=== PATIENT | female | born 1960 | race Caucasian/White ===

== ENCOUNTER 2021-01-22 13:38 | Emergency (ER) | payer OTHER, SELFPAY ==
[2021-01-22 13:55] VITALS: BP 156/84; PULSE 73; RESP 20; TEMP 37.1; O2SAT 100
--- NOTE | 2021-01-22 14:02 | ED.FEMALEGU ---
HPI - Female Genitourinary General Chief complaint: Urogenital-Female Stated complaint: Female Urogenital Time Seen by Provider: 01/22/21 14:11 Source: patient and RN notes reviewed Mode of arrival: ambulatory Limitations: no limitations History of Present Illness HPI Narrative: 60-year-old female with history of urinary tract infection presents with concern for dysuria, bladder pressure, nausea, flank pain. Reports she last had an infection in December and took Macrobid for which she has a standing prescription from her urologist. Reports she just got this prescription over the summer after a bladder scope. Reports that Macrobid made her sick. She reports, however, her symptoms did resolve with the infection in December. She denies fever, body aches, genital rash or lesions. MD elicited complaint: UTI Related Data Allergies Allergy/AdvReac Type Severity Reaction Status Date / Time nitrofurantoin AdvReac Intermediate Nausea and Verified 01/22/21 14:12 [From Macrobid] Vomiting Review of Systems Review of Systems: CONSTITUTIONAL: Denies malaise, chills, sweats, or fever. GASTROINTESTINAL: Denies abdominal pain, vomiting, diarrhea. Reports nausea GENITOURINARY: Reports dysuria, suprapubic pressure, urine frequency, flank pain. Denies urgency or hematuria. SKIN: Denies rash or itching. MUSCULOSKELETAL: Denies back pain, joint pain, or myalgia. NEUROLOGIC: Denies numbness, weakness, or headache. All systems reviewed & are unremarkable except as noted in HPI and below PMFSH Comments At time of signature, agree with nursing past medical, surgical, social and family history. There is no relevant family history pertinent to the presenting complaint Exam Narrative: GENERAL: Well-appearing, well-nourished, and in no acute distress. HEAD: Normocephalic. EYES: PERRLA, conjunctivae clear. NECK: Supple. No lymphadenopathy CHEST: Clear to auscultation. No respiratory distress. HEART: Regular rate and rhythm. ABDOMEN: Soft, nontender upon palpation, nondistended, normal active bowel sounds, no palpable or pulsatile masses, no guarding. No CVA tenderness SKIN: Warm, dry, no rash. NEURO: Alert and oriented x3. PSYCH: Normal mood and affect Course Course Emergency Course: Patient is aware of diagnosis, understands and agrees to treatment plan. Anticipatory guidance given. Patient agrees to follow-up as directed and is aware of reasons to seek care at the emergency department. Portions of this record may have been created with voice recognition software Vital Signs Vital signs: Vital Signs Temperature 98.8 F 01/22/21 13:55 Pulse Rate 73 01/22/21 13:55 Respiratory Rate 20 01/22/21 13:55 Blood Pressure 156/84 H 01/22/21 13:55 Pulse Oximetry 100 01/22/21 13:55 Temperature 98.8 F 01/22/21 13:55 Pulse Rate 73 01/22/21 13:55 Respiratory Rate 20 01/22/21 13:55 Blood Pressure 156/84 H 01/22/21 13:55 Pulse Oximetry 100 01/22/21 13:55 Reviewed. MDM - Female Genitourinary MDM Narrative Medical decision making narrative: Exam findings and UA show no acute concerns or changes; patient is non-toxic appearing and is in no distress. Patient is appropriate for outpatient treatment and follow-up. Critical Care Time Critical Care Time Critical Care Time: No Discharge Plan Discharge Clinical Impression: Symptoms of urinary tract infection Patient Disposition: Home, Self-Care Condition: Stable Instructions: Antibiotic Form, Urinary Tract Infection in Women (ED) Additional Instructions: We will send a urine culture to the lab; if the culture identifies an organism that the prescribed antibiotic will not treat, you will receive a phone call from an urgent care staff member and an appropriate antibiotic will be prescribed. You can call on Saturday or Saturday to find out if the urine culture grew bacteria. If it does not grow bacteria you can follow-up with your urologist about further evaluat
== END 2021-01-22 14:25 | disposition home or self-care (01) ==
PROVIDERS: Emergency Provider Nurse Practitioner; PCP Emergency Medicine
DX: R30.0 Dysuria (principal); R10.9 Unspecified abdominal pain; R11.0 Nausea; M35.00 Sjogren syndrome, unspecified
CPT/HCPCS: 81003; 87086; 99203; G0463

== ENCOUNTER 2021-07-17 10:19 | Emergency (ER) | payer OTHER, SELFPAY ==
[2021-07-17 10:33] VITALS: BP 146/78; PULSE 66; RESP 18; TEMP 36.9; O2SAT 98
--- NOTE | 2021-07-17 10:47 | ED.URI ---
HPI - URI/Sore Throat General Chief Complaint: Upper Respiratory Infection Stated Complaint: Congestion,Shortness of Breath Time Seen by Provider: 07/17/21 10:37 Source: patient and RN notes reviewed Mode of arrival: ambulatory Limitations: no limitations History of Present Illness HPI Narrative: 60-year-old female presented for complaint of headache, sinus pressure and congestion, sore throat, ear pressure and occasional nausea for 1 week. Endorses chills, and shortness of breath related to postnasal drainage and gurgling sensation in chest. She states cough is productive and endorses large amount of nasal congestion and mucus. She had a negative home COVID test yesterday. Endorses sick contacts all negative for COVID. She is been taking Tylenol and ibuprofen for symptoms. Hx afib, IBS, cdiff. MD elicited complaint: cough Related Data Home Medications Medication Instructions Recorded Confirmed cyclosporine [Restasis] 2 drp EACH EYE DAILY 07/17/21 07/17/21 flecainide 100 mg PO DAILY 07/17/21 07/17/21 hydroxychloroquine 200 mg PO DAILY 07/17/21 07/17/21 metoprolol succinate 25 mg PO DAILY 07/17/21 07/17/21 Allergies Allergy/AdvReac Type Severity Reaction Status Date / Time nitrofurantoin AdvReac Intermediate Nausea and Verified 07/17/21 10:26 [From Macrobid] Vomiting Review of Systems Review of Systems: CONSTITUTIONAL: denies malaise, fever EYES: Denies visual changes, redness, or discharge ENT: Reports rhinorrhea, congestion, sinus pain, otalgia, sore throat CARDIOVASCULAR: Denies chest pain, palpitations, edema RESPIRATORY: Reports cough, post nasal drainage GASTROINTESTINAL: Denies abdominal pain,vomiting SKIN: Denies rash or itching MUSCULOSKELETAL: Denies myalgia NEUROLOGIC: Endorses headache Exam Narrative: GENERAL: Ill-appearing, nontoxic HEAD: Normocephalic EYES:conjunctivae clear ENT: Mucous membranes moist. TM pearly frias with dull light reflex bilaterally; no tragal tenderness. Oropharynx erythematous without lesions or exudate, no drooling, no hoarseness, no trismus, uvula midline. No tripod positioning, muffled voice, soft palate or pharyngeal wall bulging NECK: Supple. No lymphadenopathy CHEST: Clear to auscultation, breath sounds equal. No wheezing, rhonchi, rales, or stridor. No respiratory distress, speaks in full sentences. HEART: Regular rate and rhythm. No murmur heard. SKIN: Warm, dry, no rash. NEURO: Alert and oriented x3. PSYCH: Normal mood and affect Course Course Emergency Course: Patient is aware of diagnosis, understands and agrees to treatment plan. Anticipatory guidance given. Patient agrees to follow-up as directed and is aware of reasons to seek care at the emergency department. Portions of this record may have been created with voice recognition software Level of Care: Express Care Visit Vital Signs Vital signs: Vital Signs Temperature 98.4 F 07/17/21 10:33 Pulse Rate 66 07/17/21 10:33 Respiratory Rate 18 07/17/21 10:33 Blood Pressure 146/78 H 07/17/21 10:33 Pulse Oximetry 98 07/17/21 10:33 Temperature 98.4 F 07/17/21 10:33 Pulse Rate 66 07/17/21 10:33 Respiratory Rate 18 07/17/21 10:33 Blood Pressure 146/78 H 07/17/21 10:33 Pulse Oximetry 98 07/17/21 10:33 reviewed MDM - URI/Sore Throat MDM Narrative Medical decision making narrative: strep and covid negative. She is appropriate for outpt treatment. She is advised on supportive treatments and to monitor symptoms for about 5 days, if symptoms persist or she is feeling more she can start the antibiotic. Given her history of C. difficile, she is aware to use caution. She is advised to use probiotics. Differential Diagnosis Differential diagnosis: Likely upper respiratory infection, otitis media, sinusitis, viral infection, influenza and pharyngitis Lab Data Attestation: I reviewed the patient's lab results. Discharge Plan Discharge Clinical Impression: Upper respiratory infect
== END 2021-07-17 10:58 | disposition home or self-care (01) ==
PROVIDERS: Emergency Provider Nurse Practitioner Family
DX: J06.9 Acute upper respiratory infection, unspecified (principal)
CPT/HCPCS: 87081; 87804; 87880; 99213; G0463

== ENCOUNTER 2021-12-01 12:36 | Outpatient (CLI) | payer OTHER, SELFPAY ==
--- NOTE | 2021-12-01 | ECHO_ITS ---
Patient Info Name: Krystle Retana Age: 61 years : 1960 Gender: Female Ht: 66 in Wt: 158 lbs BSA: 1.84 m2 HR: 61 bpm BP: 167 / 95 mmHg Technical Quality: Good Exam Date: 12/01/2021 1:51 PM Exam Location: [facility] Patient Status: Outpatient Admit Date: 12/01/2021 Staff Ordering Physician: Lamonte, Heriberto Tejada MD Hat Blocker: Janie Donahue RDCS Attending Provider: Manjula, Heriberto Tejdaa MD Referring Physician: Lamonte TORRES; Exam Type: CA echo doppler color flow Study Info Indications M35.00 - SJOGRENS SYNDROME Complete two-dimensional, color flow and Doppler transthoracic echocardiogram is performed. Summary 1. Complete two-dimensional, color flow and Doppler transthoracic echocardiogram is performed. 2. Left ventricular chamber dimension is normal. 3. Left ventricular systolic function is normal, estimated at 65-70%. 4. The left ventricular diastolic function is normal. 5. E/e' 9 is minimally elevated. 6. Global longitudinal strain is normal at -21.4%. 7. There is trace aortic valve regurgitation. 8. There is mild mitral valve regurgitation. 9. There is trace tricuspid valve regurgitation. 10. No pulmonary hypertension, estimated pulmonary arterial systolic pressure is 31 mmHg. Left Ventricle E/e' 9 is minimally elevated. Global longitudinal strain is normal at -21.4%. Left ventricular chamber dimension is normal. Left ventricular systolic function is normal, estimated at 65-70%. The left ventricular diastolic function is normal. Right Ventricle Right ventricular systolic function is normal and with normal TAPSE 2.8 cm. Right ventricular chamber dimension is normal. Left Atria Left atrial chamber dimension is normal. Right Atria Right atrial chamber dimension is normal. Aortic Valve The aortic valve is trileaflet. There is no aortic valve stenosis. There is trace aortic valve regurgitation. Pulmonic Valve There is no pulmonic regurgitation. Mitral Valve There is no mitral valve stenosis. There is mild mitral valve regurgitation. Tricuspid Valve There is trace tricuspid valve regurgitation. No pulmonary hypertension, estimated pulmonary arterial systolic pressure is 31 mmHg. Pericardium/Pleural There is no pericardial effusion. Inferior Vena Cava Normal inferior vena cava with >50% collapse upon inspiration consistent with normal right atrial pressure, 5 mmHg. Aorta The aortic root size at the sinus of Valsalva is normal. Left Ventricular Outflow Tract Name Value Normal LVOT 2D LVOT Diameter 2.0 cm LVOT Doppler LVOT Peak Gradient 4 mmHg LVOT Mean Gradient 2 mmHg LVOT VTI 24 cm LVOT VTI/AV VTI Ratio 0.9 LVOT Stroke Volume 73 ml LVOT CO 4.0 l/min LVOT CI 2.2 l/min/m2 Pulmonic Valve Name Value Normal
--- NOTE | 2021-12-01 14:58 | WPDPFTINT ---
PFT Procedure Performed PFT Procedure Performed Plethysmography (Lung Vol) Diffusing Cap (DLCO) Flow Vol Loop Spirometry w/o Bronchodil PFT Interpretation This is a pulmonary function test with spirometry, plethysmography and diffusing capacity. The test was performed and results interpreted in accordance with the 2019 and 2005 ATS/ERS Task Force guidelines respectively using the Global Lung Function Initiative-2012 reference equations. Patient demonstrated good effort and cooperation. Reproducibility criteria were met. The quality of the spirometry maneuver was Grade A. Findings: Spirometry: The contour the inspiratory and expiratory flow tracing are normal. The FVC is 3.49 L, 103% predicted. The FEV1 is 2.62 L, 99% predicted. The FEV1: FVC ratio 75%. Plethysmography: The total lung capacity is 5.65 L, 105% predicted. The functional residual capacity is 3.24 L, 106% predicted. The residual volume is 1.72 L, 81% predicted. Diffusing capacity: The diffusing capacity unadjusted for hemoglobin in carboxyhemoglobin is 16.1, 72% predicted. The diffusing capacity adjusted for alveolar volume is 3.34, 77% predicted. Impression: The spirometry is normal without evidence of an obstructive abnormality. The lung volumes are normal. The diffusing capacity is normal. There are no prior studies for comparison
== END 2021-12-01 12:37 | disposition home or self-care (01) ==
PROVIDERS: PCP Family Medicine; Visit Provider Internal Medicine Rheumatology
DX: M35.00 Sjogren syndrome, unspecified (principal); M35.9 Systemic involvement of connective tissue, unspecified; I08.3 Combined rheumatic disorders of mitral, aortic and tricuspid valves
CPT/HCPCS: 93306; 94375; 94726; 94729

== ENCOUNTER → 2022-03-14 11:34 | Outpatient (CLI) | payer OTHER, SELFPAY ==
--- NOTE | ~2022-03-14 | XR_ITS ---
EXAMINATION: XR hip LT min 2V INDICATION: Left hip pain TECHNIQUE: Two views of the left hip are obtained. COMPARISON: None available FINDINGS: Bone alignment is normal. There is no fracture. There is mild osteoarthritis of the hip. Ph leboliths are noted in the pelvis. IMPRESSION: 1. Mild osteoarthritis. Reviewed, dictated and finalized at location B. CER IMPRESSION: 1. Mild osteoarthritis.
== END ==
PROVIDERS: PCP Family Medicine; Visit Provider Family Medicine
DX: M16.12 Unilateral primary osteoarthritis, left hip (principal)
CPT/HCPCS: 73502

== ENCOUNTER → 2022-04-20 10:27 | Outpatient (CLI) | payer OTHER, SELFPAY ==
--- NOTE | ~2022-04-20 | XR_ITS ---
XR shoulder RT min 2V 04/20/2022 10:46 Indication: Right shoulder pain Procedure: 4 views right shoulder Comparison: No prior studies for comparison. Findings: There is subtle calcific tendinopathy. Osteopenia. There is anatomic alignment. No acute fr acture or traumatic malalignment. No soft tissue abnormality. No foreign body. Impression: 1: No significant bone or joint abnormality. Reviewed, dictated and finalized at location A. CH LECTURER Impression: 1: No significant bone or joint abnormality.
== END ==
PROVIDERS: PCP Family Medicine; Visit Provider Physician Assistant
DX: M25.511 Pain in right shoulder (principal)
CPT/HCPCS: 73030

== ENCOUNTER 2022-08-21 16:35 | Outpatient (CLI) | payer OTHER, SELFPAY ==
--- NOTE | ~2022-08-21 | DEXA_ITS ---
Bone Density Report Name: DULCE TOM Age: 62 Sex: Female Ethnicity: White Date of : 1960 Indication: postmenopausal; screening for osteoporosis; height loss; Referring Provider: LIZ DE LOS SANTOS Study: Bone densitometry was performed. Exam Date: August 21, 2022 Accession number: [id number] Bone Density: Region BMD T-score Z-score Classification AP Spine(L1-L4) 0.783 -2.4 -0.8 Osteopenia Femoral Neck (Left) 0.688 -1.4 -0.1 Osteopenia Total Hip (Left) 0.808 -1.1 0.0 Osteopenia Femoral Neck (Right) 0.658 -1.7 -0.4 Osteopenia Total Hip (Right) 0.747 -1.6 -0.5 Osteopenia Total Hip Mean 0.778 -1.4 -0.3 Osteopenia World Health Organization criteria for BMD impression classify patients as: Normal (T-score at or above -1.0), Osteopenia (T-score between -1.0 and -2.5), or Osteoporosis (T-score at or below -2.5). 10-year Fracture Risk(1): Major Osteoporotic Fracture 9.1% Hip Fracture 1.0% Reported Risk Factors: [place] (), Neck BMD=0.658, BMI=27.6 (1) FRAX(R) Version 3.08. Fracture probability calculated for an untreated patient. Fracture probability may be lower if the patient has received treatment. Clinical Information Provided by Patient: Patient maximum height was 67 Menopause Age: 50 Drinks caffeinated beverages Onset of menses at age 13 Number of children 6 Impression: The patient has low bone mass, based on the Total Spine T-score. The patient has an estimated ten-year risk of hip fracture of 1% and an estimated ten-year risk of major fracture of 9.1%, based on the WHO FRAX algorithm. Discussion: BONE DENSITY IS LOW AT ONE OR MORE SKELETAL SITES. This patient's lowest T-score is low at one or more skeletal sites. It meets the World Health Organization's (WHO) criteria for ?low bone mass? (T-score between -1.0 and -2.5). The patient's 10-year risk of fracture as calculated by FRAX is less than the threshold where pharmacological therapy is recommended by the National Osteoporosis Foundation (NOF). However, all treatment decisions require clinical judgment and consideration of individual patient factors, including patient preferences, comorbidities, previous drug use, risk factors not captured in the FRAX model (e.g., frailty, falls, vitamin D deficiency, increased bone turnover, interval significant decline in bone density) and possible under or overestimation of fracture risk by FRAX. The patient should follow a healthful lifestyle (good nutrition with adequate calcium and vitamin D, and appropriate weight-bearing exercise). Follow-Up: Consider repeating this study in 2 to 3 years to reassess this patient's status, or sooner if there is some new clinical indication. Reported by: GIORGI on 08/21/2022 5:14:00 PM.
== END 2022-08-21 16:36 | disposition home or self-care (01) ==
LOC: ANHIMG 16:46
PROVIDERS: PCP Family Medicine; Visit Provider Physician Assistant
DX: N95.1 Menopausal and female climacteric states (principal); M85.89 Other specified disorders of bone density and structure, multiple sites
CPT/HCPCS: 77080

== ENCOUNTER 2022-11-12 13:55 | Outpatient (CLI) | payer OTHER, SELFPAY ==
--- NOTE | 2022-11-12 | ECG_ITS ---
Measurements Intervals [facility] [place] Rate: 55 P: 69 WA: 237 QRS: 36 QRSD: 109 T: 61 QT: 460 QTc: 442 Interpretive Statements SINUS BRADYCARDIA WITH FIRST DEGREE AV BLOCK ATRIAL PREMATURE COMPLEX DELAYED PRECORDIAL R/S TRANSITION BASELINE WANDER- I, II, AVR, AVL, AVF BORDERLINE ECG NO PREVIOUS ECG AVAILABLE FOR COMPARISON Electronically Signed On 11-12-2022 14:42:46 CDT by Jerry Wan D.O.
--- NOTE | ~2022-11-12 | XR_ITS ---
EXAMINATION: XR chest 2V 11/12/2022 15:12 INDICATION: Long-term anticoagulant use. PROCEDURE: 2 view chest COMPARISON: No prior studies for comparison. FINDINGS: The lungs are clear. The cardiomediastinal silhouette is within normal limits. There are no pleural effusions. There is no pneumothorax suspected. There are cholecystectomy clips. IMPRESSION: 1: NO ACUTE CARDIOPULMONARY DISEASE. Reviewed, dictated and finalized at location B.
[2022-11-12 14:41] LABS: Hematocrit 36.9 % (37.0-47.0); Hemoglobin 12.8 g/dL (12.0-15.0); Mean Corpuscular HGB Conc 34.7 g/dl (32-36); Mean Corpuscular Hemoglobin 33.1 pg (26-34); Mean Corpuscular Volume 95.3 fl (80-100); Mean Platelet Volume 9.7 fl (7.4-10.4); Platelet Count Result 254 k/mm3 (150-375); Red Blood Count 3.87 M/mm3 (4.2-5.4); Red Cell Distribution Width 11.7 % (11.5-14.5); White Blood Count 5.9 K/mm3 (4.5-10.0)
[2022-11-12 14:51] LABS: INR 1.1; Prothrombin Time 14.1 Seconds (11.1-14.7)
[2022-11-12 14:52] LABS: Alanine Aminotransferase 28 U/L (6-35); Albumin Level 4.6 g/dL (3.5-5.1); Alkaline Phosphatase 87 U/L (38-126); Anion Gap 10 mmol/L (8-16); Aspartate Amino Transferase 41 U/L (14-36); Bilirubin,Total 1.1 mg/dL (0.2-1.3); Blood Urea Nitrogen 10 mg/dL (7-17); Calcium 9.7 mg/dL (8.4-10.2); Carbon Dioxide 23 mmol/L (22-30); Chloride 98 mmol/L (98-107); Estimated Glomerular Filt Rate 56; Glucose 88 mg/dL (65-110); Partial Thromboplastin Time 31.5 SECONDS (22.3-36.8); Potassium 4.3 mmol/L (3.4-5.0); Sodium 131 mmol/L (137-145)
== END 2022-11-12 13:56 | disposition home or self-care (01) ==
PROVIDERS: PCP Family Medicine
DX: Z51.81 Encounter for therapeutic drug level monitoring (principal); Z79.01 Long term (current) use of anticoagulants; I44.0 Atrioventricular block, first degree
CPT/HCPCS: 36415; 71046; 80053; 85027; 85610; 85730; 93005

== ENCOUNTER 2022-11-25 09:17 | Observation (INO) | payer OTHER, SELFPAY ==
[2022-11-25] VITALS (27 sets, daily range): BP systolic 137–160; BP diastolic 68–111; PULSE 45–69; RESP 8–18; TEMP 36.6–36.9; O2SAT 89–100; BMI 25.4
--- NOTE | ~2022-11-25 | CT_ITS ---
EXAMINATION: CT abdomen pelvis w con DATE: 11/25/2022 10:17 INDICATION: Abdomen pain and diarrhea for 5 days TECHNIQUE: Computed tomography (CT) of the abdomen and pelvis was performed with 100 cc Omnipaque 350 intravenous contrast. The dose-length product was 466.69 mGy-cm. Automated exposure control and iter ative reconstruction technique were employed. COMPARISON: None. FINDINGS: Lung bases unremarkable. Heart size normal. There is a no significant vascular abnormality. No lymphadenopathy. Status post cholecystectomy. Fatty infiltration of the liver. The spleen, pancre as, adrenal glands and kidneys are unremarkable. There is mild thickening of the descending colon, si gmoid colon and rectum which may be due to underdistention or mild colitis. No evidence for perforati on. No free air or free fluid. Nonobstructive bowel pattern. Prominent parametrial vessels and left o varian vein, suspicious for pelvic congestion syndrome. IMPRESSION: 1. Mild thickening of the descending colon, sigmoid colon and rectum which may be due to underdistent ion or mild colitis. Reviewed, dictated and finalized at location A. IMPRESSION: 1. Mild thickening of the descending colon, sigmoid colon and rectum which may be due to underdistention or mild colitis.
[2022-11-25 09:41] LABS: Basophils Percent Auto 0.4 % (0.2-1.2); Immature Granulocyte Absolute 0.01 K/mm3 (0.00-0.031); Immature Granulocyte Percent A 0.4 % (0-0.5); Lymphocytes Absolute Auto 1.08 K/mm3 (0.9-3.2); Mean Corpuscular HGB Conc 35.9 g/dl (32-36); Mean Corpuscular Hemoglobin 32.9 pg (26-34); Mean Corpuscular Volume 91.8 fl (80-100); Mean Platelet Volume 9.3 fl (7.4-10.4); Monocytes Absolute Auto 0.3 K/mm3 (0.1-0.6); Monocytes Percent Auto 11.1 % (2.6-8.5); Neutrophils Absolute Auto 1.3 K/mm3 (1.3-6.7); Neutrophils Percent Auto 48.1 % (45.5-73.1); Platelet Count Result 197 k/mm3 (150-375); Red Blood Count 4.25 M/mm3 (4.2-5.4); Red Cell Distribution Width 11.2 % (11.5-14.5); White Blood Count 2.7 K/mm3 (4.5-10.0)
--- NOTE | 2022-11-25 09:48 | ED.GENADULT ---
HPI - General Adult General Chief complaint: Abdominal Pain <Stephie Hernandez July, ASSISTANT FIELD HOCKEY COACH - Last Filed: 11/25/22 17:41> Stated complaint: Abd pain <Stephie Hernandez July, - Last Filed: 11/25/22 17:41> Time Seen by Provider: 11/25/22 09:24 <Stephie Hernandez July, ASSISTANT FIELD HOCKEY COACH - Last Filed: 11/25/22 17:41> History of Present Illness HPI narrative: Krystle Retana is a 62 y/o female who presents with reports of not feeling well for the past 5 days. She states she has had explosive diarrhea for the past 5 days with generalized abdominal pain that has become much worse today. She states that she tested positive for Covid 5 days ago and had fevers 2 days ago. She reports she really has not urinated much over the past few days and has not eaten any food, she has tried to drink water even with feeling nauseated but it seems to hurt her stomach and she starts to have severe diarrhea that is green now. Denies any blood in her stool. She states that she was also supposed to get an ablation for her tachycardia last week but they delayed because she is Covid positive so she has been on Eliquis for about two weeks. <Stephie Hernandez July, - Last Filed: 11/25/22 17:41> Related Data Home medications: Home Medications Medication Instructions Recorded Confirmed cyclosporine 0.05 % eye drops in a 2 drp EACH EYE DAILY 07/17/21 11/25/22 dropperette (Restasis) flecainide 100 mg tablet 100 mg PO BID 07/17/21 11/25/22 hydroxychloroquine 200 mg tablet 200 mg PO DAILY 07/17/21 11/25/22 metoprolol succinate 25 mg 25 mg PO DAILY 07/17/21 11/25/22 tablet,extended release 24 hr apixaban 5 mg tablet (Eliquis) 5 mg PO BID 11/25/22 11/25/22 dicyclomine 10 mg capsule 20 mg PO BID PRN abdominal cramping 11/25/22 11/25/22 <Stephie Hernandez July, ASSISTANT FIELD HOCKEY COACH - Last Filed: 11/25/22 17:41> Allergies/adverse reactions: Allergies Allergy/AdvReac Type Severity Reaction Status Date / Time nitrofurantoin AdvReac Intermediate Nausea and Verified 11/25/22 09:18 [From Macrobid] Vomiting Sulfa (Sulfonamide AdvReac Diarrhea Verified 11/25/22 14:45 Antibiotics) <Stephie Fan - Last Filed: 11/25/22 17:41> Review of Systems Review of Systems: CONSTITUTIONAL: Denies fever, chills, or sweats. EYES: Denies visual changes, redness, or discharge. ENT: Denies rhinorrhea, congestion, sore throat, or otalgia. CARDIOVASCULAR: Denies chest pain, palpitations, or edema. RESPIRATORY: Denies cough or dyspnea. GASTROINTESTINAL: Reports severe mid/ generalized abdominal pain along with diarrhea for 5 days , no vomiting but feels nauseatd. GENITOURINARY: Denies dysuria or hematuria. SKIN: Denies rash or itching. MUSCULOSKELETAL: Denies back pain, joint pain, or myalgia. NEUROLOGIC: Denies headache, numbness, dizziness, or weakness. PSYCHIATRIC: Denies anxiety or depression. <Stephie Hernandez July, - Last Filed: 11/25/22 17:41> [facility] Past Medical History Medical History: Medical History (Updated 11/25/22 @ 17:41 by Stephie Hernandez July, ASSISTANT FIELD HOCKEY COACH) Hypertension Irritable bowel syndrome Osteopenia Paroxysmal atrial fibrillation Sjogren's disease Vitamin B12 deficiency <Stephie Hernandez July, - Last Filed: 11/25/22 17:41> Surgical History Surgical History: Surgical History (Updated 11/25/22 @ 14:16 by Sabrina Tay PA-C) History of arthroscopy of right knee x3 History of cardiac radiofrequency ablation (RFA) History of cholecystectomy History of endometrial ablation History of laser assisted in situ keratomileusis <Stephie Hernandez July, - Last Filed: 11/25/22 17:41> Family History Family History: Family History Father Melanoma Sibling Hypertension <Stephie Hernandez July, - Last Filed: 11/25/22 17:41> Social History Social History: Social History (Updated 11/25/22 @ 14:17 by Sabrina Tay PA-C) Social History: Surrogate medical decision maker: Code status: Full code. Smoking status: Ne
[2022-11-25 09:53] LABS: Alanine Aminotransferase 42 U/L (6-35); Albumin Level 4.6 g/dL (3.5-5.1); Alkaline Phosphatase 96 U/L (38-126); Anion Gap 10 mmol/L (8-16); Aspartate Amino Transferase 55 U/L (14-36); Bilirubin,Total 0.5 mg/dL (0.2-1.3); Blood Urea Nitrogen 10 mg/dL (7-17); Calcium 9.9 mg/dL (8.4-10.2); Carbon Dioxide 23 mmol/L (22-30); Chloride 96 mmol/L (98-107); Estimated Glomerular Filt Rate 50; Glucose 106 mg/dL (65-110); Lipase 176 U/L (23-300); Sodium 129 mmol/L (137-145)
[2022-11-25] MEDS: ONDANSETRON INJ 4 MG/2 ML VIAL IV PUSH (10:23)
[2022-11-25] MEDS: DICYCLOMINE HCL INJ 20 MG/2 ML VIAL IM (10:23)
[2022-11-25] MEDS: SODIUM CHLORIDE 0.9% IV 1,000 ML 999 ML IV CONT (10:23)
[2022-11-25] MEDS: FAMOTIDINE 20 MG/2 ML VIAL IV PUSH (10:23)
[2022-11-25 11:11] LABS: Influenza A QL RT-PCR Negative (Negative); Influenza B QL RT-PCR Negative (Negative); RSV RNA, RT-PCR Negative (Negative); SARS-CoV-2 RNA PCR Positive (Negative)
[2022-11-25 11:23] LABS: Appearance Urine Clear (Clear); Bilirubin Urine Negative (Negative); Blood Urine Negative (Negative); Color Urine Yellow (Yellow); Glucose Urine UA Negative (Negative); Ketones Urine Negative (Negative); Leukocyte Esterase Ur Negative LEU/UL (Negative); Nitrate Urine Negative (Negative); Protein Urine Negative (Negative); Specific Grav Ur 1.028 (1.001-1.035); Urobilinogen Urine 0.2 mg/dL (<2.0)
[2022-11-25 11:27] LABS: Add Urine Microscopic? NO
[2022-11-25 11:30] LABS: Lactic Acid Reflex 0.9 mmol/L (0.7-2.0)
--- NOTE | 2022-11-25 13:46 | PM.IMHP ---
H&P: HPI History of Present Illness Date/Time: 11/25/22 14:15 Chief Complaint: Abdominal pain, diarrhea. Narrative: This is a 62-year-old female with history of clostridium difficile diarrhea, irritable bowel syndrome, hypertension, paroxysmal atrial fibrillation status post ablation, and Sjogren's syndrome who presented to the emergency department via private vehicle for evaluation of abdominal pain and diarrhea. The patient provides the following history. Her son had cold symptoms a week ago and last Saturday she developed the same. She tested positive for COVID on Saturday and she has not had a great appetite since that time due to change in smell and taste. She has ongoing nausea but has not had any vomiting. The last few days she has developed diffuse abdominal discomfort and diarrhea. Initially she had watery yellowish-brown diarrhea but is now more green in appearance. She has not noticed any blood or mucus in the stool. Today she took a Bentyl for her ongoing abdominal pain and given her history of IBS, and she has not had any diarrhea since admission to the floor. Of note the patient was scheduled for a cardiac ablation for tachycardia last week however that was postponed due to her being COVID positive. She has not had any issues today with tachycardia or sensations of racing heart. She was afebrile on arrival to the emergency department. Blood pressures have been stable. Labs were significant for a WBC count of 2.7, sodium 129, chloride 96, creatinine 1.10, AST 55, ALT 42. Urinalysis was unremarkable. She was negative for influenza and RSV but did test positive for COVID. CT of the abdomen pelvis showed mild thickening of the descending colon, sigmoid colon, and rectum which may be due to under distention or mild colitis. She is being admitted in this setting for hydration and supportive care. Review of Systems Review of Systems: Twelve systems were reviewed. She has chronic dry mouth and dry eyes due to Sjogren's. She is on hydroxychloroquine daily for that. No chest pain or shortness of breath. She has not noticed any blood or mucus in the stool. Urine output has decreased a bit. No dysuria. Except as documented, all other systems were reviewed and are negative. [facility] Past Medical History Medical History Hypertension Irritable bowel syndrome Osteopenia Paroxysmal atrial fibrillation Sjogren's disease Vitamin B12 deficiency Surgical History Surgical History History of arthroscopy of right knee x3 History of cardiac radiofrequency ablation (RFA) History of cholecystectomy History of endometrial ablation History of laser assisted in situ keratomileusis Family History Family History Father Melanoma Sibling Hypertension Social History Social History (Updated 11/25/22 @ 21:54 by Sabrina Tay PA-C) Social History: Surrogate medical decision maker: Ramiro Retana, spouse. Code status: Full code. Smoking status: Never smoker Second hand tobacco smoke exposure: No Alcohol intake: never Substance use: never Substance use type: does not use Lack of Transportation: No Lack of Food: Never True Current Housing: I Have Housing Concerned About Future Housing: No Difficulty Paying Gas/Electric Bills: No Difficulty Paying for Meds: No Currently Unemployed: No Education: Decline to Answer Difficulty w/ Childcare or Family Care: No Living arrangements: with family Occupation/Education: unemployed Spiritual care concerns: No Meds Home Medications and Allergies Home Medications Medication Instructions Recorded Confirmed Type cyclosporine 0.05 % eye drops in a 2 drp EACH EYE DAILY 07/17/21 11/25/22 History dropperette (Restasis) flecainide 100 mg tablet 100 mg PO BID 07/17/21 11/25/22 History hydroxych
--- NOTE | 2022-11-25 14:42 | PC.NURSE ---
This patient, Krystle Retana, was admitted to Medical Room 341-01. Patient/family oriented to hospital policies and general routines including ID bracelet, bed and alarms, visiting hours, pain management, procedures, bathroom and other care routines, personal items, smoking policy, room service/diet, and visiting hours. Information on how to activate the Rapid Response Team has been discussed. Patient/Family are encouraged to report perceived risks to care and to ask questions if they do not understand what they are told or what they should do.
--- NOTE | 2022-11-25 16:16 | PC.NURSE ---
Technical Sales Support Specialist spoke with patient's Ramiro and gave him an update on patient via telephone.
[2022-11-25] MEDS: APIXABAN 5 MG TABLET PO (21:27)
[2022-11-25] MEDS: FLECAINIDE ACETATE 100 MG TABLET PO (21:27)
[2022-11-25 21:58] LABS: Anion Gap 10 mmol/L (8-16); Blood Urea Nitrogen 8 mg/dL (7-17); Carbon Dioxide 19 mmol/L (22-30); Chloride 101 mmol/L (98-107); Estimated CRCL calculation 46 ml/min; Estimated Glomerular Filt Rate 56; Glucose 118 mg/dL (65-110); Potassium 3.6 mmol/L (3.4-5.0); Sodium 130 mmol/L (137-145)
[2022-11-26] VITALS (7 sets, daily range): BP systolic 130–138; BP diastolic 86–93; PULSE 48–61; RESP 16–17; TEMP 36.8–36.9; O2SAT 100
[2022-11-26] MEDS: SODIUM CHLORIDE 0.9% IV 1,000 ML 100 ML IV CONT (00:12)
[2022-11-26 06:02] LABS: Hematocrit 36.8 % (37.0-47.0); Hemoglobin 12.5 g/dL (12.0-15.0); Mean Corpuscular Hemoglobin 32.6 pg (26-34); Mean Corpuscular Volume 95.8 fl (80-100); Platelet Count Result 172 k/mm3 (150-375); Red Blood Count 3.84 M/mm3 (4.2-5.4); Red Cell Distribution Width 11.6 % (11.5-14.5); White Blood Count 2.9 K/mm3 (4.5-10.0)
[2022-11-26 06:19] LABS: Alanine Aminotransferase 39 U/L (6-35); Albumin Level 3.8 g/dL (3.5-5.1); Alkaline Phosphatase 76 U/L (38-126); Anion Gap 8 mmol/L (8-16); Aspartate Amino Transferase 47 U/L (14-36); Bilirubin,Total 0.4 mg/dL (0.2-1.3); Blood Urea Nitrogen 7 mg/dL (7-17); Calcium 8.9 mg/dL (8.4-10.2); Carbon Dioxide 22 mmol/L (22-30); Chloride 103 mmol/L (98-107); Estimated CRCL calculation 51 ml/min; Estimated Glomerular Filt Rate > 60; Glucose 90 mg/dL (65-110); Potassium 4.7 mmol/L (3.4-5.0); Sodium 133 mmol/L (137-145)
[2022-11-26] MEDS: ACETAMINOPHEN 325 MG TABLET 650 MG PO (06:58)
[2022-11-26] MEDS: FLECAINIDE ACETATE 100 MG TABLET PO (09:47)
[2022-11-26] MEDS: cycloSPORINE 0.4 ML OPHTH SOLUTION 2 DROP EACH EYE (09:47)
[2022-11-26] MEDS: APIXABAN 5 MG TABLET PO (09:47)
[2022-11-26] MEDS: METOPROLOL SUCCINATE EXT REL 25 MG TABCR PO (09:48)
[2022-11-26] MEDS: lisinopriL 10 MG TABLET PO (09:48)
[2022-11-26] MEDS: HYDROXYCHLOROQUINE SULFATE 200 MG TABLET PO (09:48)
--- NOTE | 2022-11-26 12:02 | PM.DS ---
DS: Admitting Diagnosis Discharge Date 11/26 Admitting Diagnosis N/V/D DS: Discharge Diagnosis Discharge Diagnosis (1) COVID: Code(s): U07.1 - COVID-19 Status: Acute (2) Diarrhea: Code(s): R19.7 - Diarrhea, unspecified Status: Acute (3) Dehydration: Code(s): E86.0 - Dehydration Status: Acute (4) Hyponatremia: Code(s): E87.1 - Hypo-osmolality and hyponatremia Status: Acute (5) Paroxysmal atrial fibrillation: Code(s): I48.0 - Paroxysmal atrial fibrillation Status: Acute (6) Hypertension: Code(s): I10 - Essential (primary) hypertension Status: Acute Plan The patient presented to the emergency department for evaluation of abdominal pain and diarrhea as detailed in HPI. She also tested positive for COVID last Saturday, confirmed today. Labs, imaging, EKG, and all reports were personally reviewed. She is dehydrated from poor oral intake and diarrhea with an increasing creatinine from her baseline (1.1 today, baseline 1.0). Sodium is also low 129 however it looks like she is chronically low. She was given a L normal saline bolus in the emergency department and she will receive 1 more L overnight. She has not had any diarrhea since taking her Bentyl this morning. Diarrhea is likely related to COVID and her irritable bowel syndrome. Supportive care for the COVID, she has no oxygen requirement. CT scan shows findings of perhaps mild colitis though findings may be due to under distension. Her diarrhea seems to be slowing down, she is afebrile, and her abdominal exam is pretty benign. As such will hold on antibiotics at this time given her history of C diff. Blood pressures were reviewed and they have been stable. She is currently in a sinus bradycardia and has not had any issues of tachycardia today. Her home medications will be reviewed and resumed as appropriate. DS: Summary Hospital Course Hospital Course: This is a 62-year-old female with history of clostridium difficile diarrhea, irritable bowel syndrome, hypertension, paroxysmal atrial fibrillation status post ablation, and Sjogren's syndrome who presented to the emergency department via private vehicle for evaluation of abdominal pain and diarrhea. The patient provides the following history. Her son had cold symptoms a week ago and last Saturday she developed the same. She tested positive for COVID on Saturday and she has not had a great appetite since that time due to change in smell and taste. She has ongoing nausea but has not had any vomiting. The last few days she has developed diffuse abdominal discomfort and diarrhea. Initially she had watery yellowish-brown diarrhea but is now more green in appearance. She has not noticed any blood or mucus in the stool. Today she took a Bentyl for her ongoing abdominal pain and given her history of IBS, and she has not had any diarrhea since admission to the floor. Of note the patient was scheduled for a cardiac ablation for tachycardia last week however that was postponed due to her being COVID positive. She has not had any issues today with tachycardia or sensations of racing heart. She was afebrile on arrival to the emergency department. Blood pressures have been stable. Labs were significant for a WBC count of 2.7, sodium 129, chloride 96, creatinine 1.10, AST 55, ALT 42. Urinalysis was unremarkable. She was negative for influenza and RSV but did test positive for COVID. CT of the abdomen pelvis showed mild thickening of the descending colon, sigmoid colon, and rectum which may be due to under distention or mild colitis. She is being admitted in this setting for hydration and supportive care. Status at Discharge Cognitive/behavioral status at discharge: A&Ox4 Time Spent with Patient Time attestation: Total time spent providing and/or coordinating discharge services: 42 Exam Narrative: General: well appearing, well developed, well nourished, appears stated age. HEENT: normoc
== END 2022-11-26 15:20 | disposition home or self-care (01) ==
LOC: ANHED 10:51 → ANH3MED 13:44
PROVIDERS: Emergency Medicine; Physician Assistant; Admitting Provider Chiropractor; Emergency Provider Nurse Practitioner Family; PCP Family Medicine; Visit Provider Chiropractor
DX: U07.1 COVID-19 (principal); R19.7 Diarrhea, unspecified; E86.0 Dehydration; E87.1 Hypo-osmolality and hyponatremia; I10 Essential (primary) hypertension; I48.0 Paroxysmal atrial fibrillation; M35.00 Sjogren syndrome, unspecified
CPT/HCPCS: 36415; 74177; 80048; 80053; 81003; 83605; 83690; 83735; 83930; 84443; 85025; 85027; 87637; 96360; 96361; 96372; 96374; 96375; 99285; A9270; G0378; J0500; J2405; J7030; Q9967

== ENCOUNTER 2022-11-27 07:01 | Emergency (ER) | payer OTHER, SELFPAY ==
[2022-11-27] VITALS (12 sets, daily range): BP systolic 127–162; BP diastolic 68–94; PULSE 66; RESP 19; TEMP 37.4; O2SAT 98–100
--- NOTE | ~2022-11-27 | CT_ITS ---
EXAMINATION: CT abdomen pelvis w con DATE: 11/27/2022 08:25 INDICATION: Abdominal pain TECHNIQUE: Computed tomography (CT) of the abdomen and pelvis was performed with 100 mL Omnipaque-350 intravenous contrast. Automated exposure control and iterative reconstruction technique were employe d. The dose-length product was 382.30 mGy-cm. COMPARISON: 11/25/2022 FINDINGS: Mild dependent atelectasis in the right lower lobe. Heart size is normal. No pericardial or pleural e ffusion. Cholecystectomy clips the gallbladder fossa. Liver, spleen, pancreas, bilateral adrenal glan ds and kidneys are normal. Bowels including the appendix are normal. Prominent left gonadal vein and parametrial vessels which can be seen with pelvic vascular congestion syndrome. Uterus and bilateral adnexa are otherwise unremarkable. Nearly decompressed bladder is normal. No free intraperitoneal gas or fluid. No pathologically enlarged abdominal or pelvic lymphadenopathy. Lumbar levocurvature with moderate to severe spondylosis. IMPRESSION: 1. No acute intra-abdominal/pelvic process. Reviewed, dictated and finalized at location A.
[2022-11-27 07:45] LABS: Basophils Percent Auto 0.4 % (0.2-1.2); Hematocrit 35.7 % (37.0-47.0); Hemoglobin 12.7 g/dL (12.0-15.0); Immature Granulocyte Absolute 0.01 K/mm3 (0.00-0.031); Immature Granulocyte Percent A 0.4 % (0-0.5); Lymphocytes Absolute Auto 0.97 K/mm3 (0.9-3.2); Lymphocytes Percent Auto 37.3 % (18.3-44.2); Mean Corpuscular HGB Conc 35.6 g/dl (32-36); Mean Corpuscular Hemoglobin 32.5 pg (26-34); Mean Corpuscular Volume 91.3 fl (80-100); Mean Platelet Volume 9.9 fl (7.4-10.4); Monocytes Absolute Auto 0.2 K/mm3 (0.1-0.6); Monocytes Percent Auto 8.5 % (2.6-8.5); Neutrophils Absolute Auto 1.4 K/mm3 (1.3-6.7); Neutrophils Percent Auto 53.4 % (45.5-73.1); Platelet Count Result 187 k/mm3 (150-375); Red Blood Count 3.91 M/mm3 (4.2-5.4); Red Cell Distribution Width 11.4 % (11.5-14.5); White Blood Count 2.6 K/mm3 (4.5-10.0)
--- NOTE | 2022-11-27 07:55 | ED.ABDPAIN ---
HPI - Abdominal Pain General Chief Complaint: Abdominal Pain Stated Complaint: I'm having gut pain, N/V, dx with colitis, COVID Time Seen by Provider: 11/27/22 07:05 History of Present Illness HPI narrative: 60-year-old female presented the emergency department for evaluation of worsening nausea and abdominal pain. Patient did test positive for COVID last Saturday. Patient also developed colitis and was admitted into the hospital was discharged yesterday. Patient states that she had been on a clear liquid diet and this had helped her but they switched to regular food and she had symptoms. Overnight patient states she had worsening upper abdominal pain. Patient did take Bentyl and Zofran without improvement. Patient presents to ED complaining feeling dehydrated nauseous with increased pain. Patient denies any associated chest pain or shortness of breath patient is having diarrhea but denies any blood in her stool. Related Data Home Medications Medication Instructions Recorded Confirmed cyclosporine 0.05 % eye drops in a 2 drp EACH EYE DAILY 07/17/21 11/25/22 dropperette (Restasis) flecainide 100 mg tablet 100 mg PO BID 07/17/21 11/25/22 hydroxychloroquine 200 mg tablet 200 mg PO DAILY 07/17/21 11/25/22 metoprolol succinate 25 mg 25 mg PO DAILY 07/17/21 11/25/22 tablet,extended release 24 hr apixaban 5 mg tablet (Eliquis) 5 mg PO BID 11/25/22 11/25/22 Allergies Allergy/AdvReac Type Severity Reaction Status Date / Time nitrofurantoin AdvReac Intermediate Nausea and Verified 11/25/22 09:18 [From Macrobid] Vomiting Sulfa (Sulfonamide AdvReac Diarrhea Verified 11/25/22 14:45 Antibiotics) Review of Systems Review of Systems: All systems reviewed & are unremarkable except as noted in HPI and below PMFSH Past Medical History Medical History Hypertension Irritable bowel syndrome Osteopenia Paroxysmal atrial fibrillation Sjogren's disease Vitamin B12 deficiency Surgical History Surgical History History of arthroscopy of right knee x3 History of cardiac radiofrequency ablation (RFA) History of cholecystectomy History of endometrial ablation History of laser assisted in situ keratomileusis Family History Family History Father Melanoma Sibling Hypertension Social History Social History (Updated 11/25/22 @ 21:54 by Sabrina Tay PA-C) Social History: Surrogate medical decision maker: Ramiro Retana, spouse. Code status: Full code. Smoking status: Never smoker Second hand tobacco smoke exposure: No Alcohol intake: never Substance use: never Substance use type: does not use Lack of Transportation: No Lack of Food: Never True Current Housing: I Have Housing Concerned About Future Housing: No Difficulty Paying Gas/Electric Bills: No Difficulty Paying for Meds: No Currently Unemployed: No Education: Decline to Answer Difficulty w/ Childcare or Family Care: No Living arrangements: with family Occupation/Education: unemployed Spiritual care concerns: No Exam Narrative: APPEARANCE: Uncomfortable appearing HEAD: normocephalic, atraumatic. EYES: PERRLA/EOMI, conjunctivae clear. NOSE: Normal no drainage NECK: Supple. No adenopathy, no masses. RESPIRATORY: Airway patent, respirations nonlabored. Clear to auscultation bilaterally, no rales, rhonchi, wheezing. CARDIOVASCULAR: Regular rate and rhythm without murmurs rubs or gallops. ABDOMINAL: Soft, epigastric tenderness to palpation MUSCULOSKELETAL: Moves all extremities. Strength/ROM intact, No edema, No calf tenderness. NEURO: Alert. Cranial nerves II through XII intact. Grossly intact SKIN: Warm, dry. Normal Color Course Course Emergency Course: 62-year-old female presented the ED for evaluation of worsening pain after recen
[2022-11-27 07:57] LABS: Appearance Urine Clear (Clear); Bilirubin Urine Negative (Negative); Blood Urine Negative (Negative); Color Urine Yellow (Yellow); Glucose Urine UA Negative (Negative); Ketones Urine 1+ mg/dL (Negative); Leukocyte Esterase Ur Negative LEU/UL (Negative); Nitrate Urine Negative (Negative); Protein Urine Negative (Negative); Specific Grav Ur 1.011 (1.001-1.035); Urobilinogen Urine 0.2 mg/dL (<2.0); pH Urine 6.5 (5.0-9.0)
[2022-11-27 07:59] LABS: Add Urine Microscopic? NO
[2022-11-27 07:59] LABS: Alanine Aminotransferase 49 U/L (6-35); Albumin Level 4.4 g/dL (3.5-5.1); Alkaline Phosphatase 91 U/L (38-126); Anion Gap 12 mmol/L (8-16); Aspartate Amino Transferase 59 U/L (14-36); Bilirubin,Total 0.8 mg/dL (0.2-1.3); Blood Urea Nitrogen 9 mg/dL (7-17); Calcium 9.4 mg/dL (8.4-10.2); Carbon Dioxide 19 mmol/L (22-30); Chloride 101 mmol/L (98-107); Estimated CRCL calculation 53 ml/min; Estimated Glomerular Filt Rate > 60; Glucose 102 mg/dL (65-110); Lipase 204 U/L (23-300); Potassium 3.8 mmol/L (3.4-5.0); Sodium 132 mmol/L (137-145)
[2022-11-27] MEDS: METOCLOPRAMIDE HCL INJ 10 MG/2 ML VIAL IV PUSH (08:30)
[2022-11-27] MEDS: SODIUM CHLORIDE 0.9% IV 1,000 ML 999 ML IV CONT (08:30)
[2022-11-27] MEDS: BELLADONNA ALK/PHENOB ELIX 10 ML, MAG HYDROX/ALUMINUM HYD/SIMETH 30 ML, LIDOCAINE HCL 2... PO (08:31)
[2022-11-27] MEDS: PANTOPRAZOLE SODIUM IV 40 MG VIAL IV PUSH (09:58)
== END 2022-11-27 10:09 | disposition home or self-care (01) ==
PROVIDERS: Emergency Provider Emergency Medicine; PCP Family Medicine
DX: R10.10 Upper abdominal pain, unspecified (principal); U07.1 COVID-19; I10 Essential (primary) hypertension; I48.0 Paroxysmal atrial fibrillation; M35.00 Sjogren syndrome, unspecified; E53.8 Deficiency of other specified B group vitamins; K58.9 Irritable bowel syndrome, unspecified; Z79.01 Long term (current) use of anticoagulants
CPT/HCPCS: 36415; 74177; 80053; 81003; 83690; 85025; 96374; 96375; 99284; A9270; C9113; J2765; J7030; Q9967

== ENCOUNTER 2023-01-03 12:49 | Outpatient (CLI) | payer OTHER, SELFPAY ==
--- NOTE | 2023-01-03 | ECG_ITS ---
Measurements Intervals Pax Rate: 56 P: 65 WY: 228 QRS: 7 QRSD: 98 T: 48 QT: 445 QTc: 432 Interpretive Statements SINUS BRADYCARDIA WITH FIRST DEGREE AV BLOCK BASELINE ARTIFACT- I, II, III, AVR, AVF BORDERLINE ECG COMPARED TO ECG 11/12/2022 14:29:27 NO SIGNIFICANT CHANGES Electronically Signed On 01-03-2023 14:26:26 CDT by Jerry Wan D.O.
[2023-01-03 13:21] LABS: Hematocrit 37.3 % (37.0-47.0); Hemoglobin 12.3 g/dL (12.0-15.0); Mean Corpuscular Hemoglobin 32.1 pg (26-34); Mean Corpuscular Volume 97.4 fl (80-100); Mean Platelet Volume 9.6 fl (7.4-10.4); Platelet Count Result 275 k/mm3 (150-375); Red Blood Count 3.83 M/mm3 (4.2-5.4); Red Cell Distribution Width 12.3 % (11.5-14.5); White Blood Count 4.8 K/mm3 (4.5-10.0)
[2023-01-03 13:31] LABS: Alanine Aminotransferase 23 U/L (6-35); Albumin Level 4.8 g/dL (3.5-5.1); Alkaline Phosphatase 78 U/L (38-126); Anion Gap 9 mmol/L (8-16); Aspartate Amino Transferase 29 U/L (14-36); Blood Urea Nitrogen 14 mg/dL (7-17); Calcium 9.8 mg/dL (8.4-10.2); Carbon Dioxide 24 mmol/L (22-30); Chloride 98 mmol/L (98-107); Estimated Glomerular Filt Rate 50; Glucose 90 mg/dL (65-110); Potassium 4.6 mmol/L (3.4-5.0); Sodium 131 mmol/L (137-145)
[2023-01-03 13:37] LABS: INR 1.3; Partial Thromboplastin Time 37.1 SECONDS (22.3-36.8); Prothrombin Time 17.4 Seconds (11.1-14.7)
== END 2023-01-03 12:50 | disposition home or self-care (01) ==
PROVIDERS: PCP Family Medicine
DX: I48.91 Unspecified atrial fibrillation (principal); I10 Essential (primary) hypertension; Z79.01 Long term (current) use of anticoagulants; Z01.818 Encounter for other preprocedural examination; I44.0 Atrioventricular block, first degree
CPT/HCPCS: 36415; 80053; 85027; 85610; 85730; 93005

== ENCOUNTER 2023-01-16 16:24 | Outpatient (CLI) | payer OTHER, SELFPAY ==
--- NOTE | ~2023-01-16 | US_ITS ---
EXAMINATION: US arterial duplex LE RT DATE: 01/16/2023 18:14 INDICATION: PSEUDOANEURYSM . TECHNIQUE: Grayscale and Doppler ultrasound images of the were obtained. COMPARISON: None. FINDINGS: 2.6 cm AP by 5.5 cm transverse by 6.2 cm long, mixed echogenicity collection in the right g roin anterior to the femoral vessels, with turbulent internal flow and the Yin Arango sign. Feeding tra ct appears to be at the deep margin roughly at the mid point of the pseudoaneurysm (shown in the firs t cine clip). There is a second, 4 mm tract proximally between the pseudoaneurysm and the right commo n femoral vein exhibiting too and fro flow. 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 These findings were discussed with Dr. Tanner Felipe at 5:57 PM on 01/16/2023. The patient will be se nt to the [place] ED, with consideration for vascular surgery or interventional consultation. Reviewed, dictated and finalized at location K. 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 These findings were discussed with Dr. Tanner Felipe at 5:57 PM on 01/16/2023. The patient will be sent to the [place] ED, with consideration for vascular vasquez rgery or interventional consultation.
== END 2023-01-16 16:25 | disposition home or self-care (01) ==
PROVIDERS: PCP Family Medicine
DX: I72.8 Aneurysm of other specified arteries (principal); L98.8 Other specified disorders of the skin and subcutaneous tissue
CPT/HCPCS: 93926

== ENCOUNTER 2023-08-28 09:48 | Outpatient (CLI) | payer OTHER, SELFPAY ==
--- NOTE | ~2023-08-28 | MR_ITS ---
EXAMINATION: MR shoulder LT wo con DATE: 08/28/2023 11:40 INDICATION: Rotator cuff tear TECHNIQUE: Magnetic resonance imaging (MRI) of the left shoulder was performed without intravenous co ntrast. Sequences included axial PD-weighted FS FSE, coronal oblique PD-weighted FS FSE, coronal obli que T2-weighted FS FSE, sagittal PD-weighted FS FSE, and sagittal T1-weighted SE. COMPARISON: None. FINDINGS: Coracoacromial arch: The acromion undersurface is curved in morphology (type II) with small inferiorly directed anterior s ubacromial spur. The coracoacromial ligament is normal. Moderate acromioclavicular osteoarthritis. Rotator cuff: Supraspinatus and infraspinatus tendinopathy with full-thickness tear measuring approximately 1.5 cm AP along the superior facet of the greater tuberosity and with 2.5 cm medial retraction of the tear m argin. The tear also extends posteriorly into the conjoined supraspinatus and infraspinatus tendons a s and partial-thickness articular sided tear. The teres minor tendon is normal. Moderate subscapulari s tendinopathy without tear. Normal rotator cuff muscle bulk and signal. Biceps tendon, glenoid labrum and glenohumeral cartilage: The long head of the biceps tendon avulsed from its glenoid anchor and retracted below the level of t he intertubercular groove. As partial-thickness cartilage loss with smooth chondral surface at the ce phalad aspect of the glenoid and with chondral surface regularity at the cephalad aspect of the humer al head. The superior labrum at the site of the avulsed long head biceps tendon appears small consist ent with degeneration without a well-defined labral tear. Fluid: There is synovitis and small amount of fluid at the subacromial/subdeltoid bursa likely combination o f bursitis and indication of fluid in the glenohumeral joint space through the full-thickness rotator cuff tear defect. There is additional small amount of joint fluid at the deep subscapular recess. No loose osteochondral bodies. Bones: Bone alignment is normal. No fracture or pathologic marrow replacing process. Minimal cystic and hype rtrophic changes along the greater tuberosity. IMPRESSION: 1. Small full-thickness tear along the superior facet footplate of the supraspinatus tendon with more posterior small articular sided tear of the conjoined portion of the supraspinatus and infraspinatus tendons. 2. Moderate subscapularis tendinopathy without tear. 3. Complete avulsion and distal retraction of the long head biceps tendon. 4. Mild glenohumeral osteoarthritis with degeneration at the superior labrum. 5. Moderate acromioclavicular osteoarthritis. 6. Moderate subacromial/subdeltoid bursitis. Reviewed, dictated and finalized at location B. IMPRESSION: 1. Small full-thickness tear along the superior facet footplate of the supraspi natus tendon with more posterior small articular sided tear of the conjoined po rtion of the supraspinatus and infraspinatus tendons. 2. Moderate subscapularis tendinopathy without tear. 3. Complete avulsion and distal retraction of the long head biceps tendon. 4. Mild glenohumeral osteoarthritis with degeneration at the superior labrum. 5. Moderate acromioclavicular osteoarthritis. 6. Moderate subacromial/subdeltoid bursitis.
--- NOTE | ~2023-08-28 | MR_ITS ---
MR cervical spine wo con Ordering provider: Brendan Riojas History: 63 years Female with . Tear of rotator cuff . Comparison: None. Technique: MRI cervical spine without contrast. FINDINGS: CERVICAL SPINAL CORD/CRANIAL CERVICAL JUNCTION: Normal in signal and caliber. CERVICAL VERTEBRAL BODIES: Normal height and alignment. Normal marrow signal. Small hemangioma in the superior endplate of C7. DISK SPACES: Narrowing of the disc spaces C4-C5, and C5-C6. C2-C3: No stenosis. C3-C4: No stenosis. C4-C5: No stenosis. C5-C6: No stenosis. Mild diffuse disc bulge with narrowing of the left foramen. C6-C7: No stenosis. C7-T1: No stenosis. VISUALIZED PARASPINOUS SOFT TISSUES: Cystic mass measuring 1.4 x 2.2 cm in the right lobe of the thyr oid. Ultrasound evaluation advised. IMPRESSION: 1. No acute osseous abnormality. 2. Multilevel degenerative disc disease. 3. Left thyroid mass. Reviewed, dictated and finalized at location A.
--- NOTE | ~2023-08-28 | MR_ITS ---
EXAMINATION: MR shoulder RT wo con DATE: 08/28/2023 11:40 INDICATION: Impingement syndrome of the right shoulder TECHNIQUE: Magnetic resonance imaging (MRI) of the right shoulder was performed without intravenous c ontrast. Sequences included axial PD-weighted FS FSE, coronal oblique PD-weighted FS FSE, coronal obl ique T2-weighted FS FSE, sagittal PD-weighted FS FSE, and sagittal T1-weighted SE. COMPARISON: Radiographs dated 04/20/2022 FINDINGS: Coracoacromial arch: The acromion undersurface is curved in morphology (type II) small anterior inferiorly directed osteop hytes. The coracoacromial ligament is normal. Moderate acromioclavicular osteoarthritis. Rotator cuff: Supraspinatus and infraspinatus tendinopathy with large tear of the supraspinatus and infraspinatus t endons. Is a small full thickness along the anterior two thirds of the supraspinatus and with full an d near full-thickness articular sided components more posteriorly where there appeared be a few resid ual intact bursal sided fibers which are of indeterminate residual functional integrity. There is ass ociated moderate fatty atrophy of both the supraspinatus and infraspinatus muscle bellies. Mild tendi nopathy without tear of the teres minor tendon. Moderate tendinopathy without tear of the subscapular is tendon. The teres minor and subscapularis muscle bellies remain normal. Biceps tendon, glenoid labrum and glenohumeral cartilage: Mild tendinopathy and partial-thickness longitudinal split tear of the long head biceps tendon center ed at the the junction of the intra-articular and extra articular portion of the tendon. There is a t ear of the posterosuperior glenoid labrum. Is some shallow chondral surface irregularity along the ap ex of the humeral head. Glenohumeral cartilage appears otherwise normal. Fluid: Synovitis and small amount of fluid at the subacromial/subdeltoid bursa consistent with combination o f bursitis and decompression of the glenohumeral joint fluid through the full-thickness rotator cuff tear defect. There is also mild bicipital tenosynovitis. No loose osteochondral bodies. Bones: There is cephalad subluxation of the humeral head with respect to the glenoid with narrowing of the s ubacromial space resulting from the full-thickness rotator cuff tear. No fracture or pathologic marro w replacing process. Mild cystic and hypertrophic change along the greater tuberosity likely sequela of chronic rotator cuff disease. IMPRESSION: 1. Full-thickness tear of the anterior two thirds of the supraspinatus tendon with additional combine d full and near full-thickness articular sided tearing of the remainder of the more posterior suprasp inatus and infraspinatus tendons. This is likely chronic given the moderate associated supraspinatus and infraspinatus muscular atrophy. 2. Mild glenohumeral osteoarthritis with tear at the posterosuperior glenoid labrum. 3. Mild bicipital tenosynovitis with mild tendinopathy and longitudinal split tearing of the long hea d biceps tendon. 4. Moderate acromioclavicular osteoarthritis. 5. Moderate subacromial/subdeltoid bursitis. Reviewed, dictated and finalized at location B. IMPRESSION: 1. Full-thickness tear of the anterior two thirds of the supraspinatus tendon w ith additional combined full and near full-thickness articular sided tearing of the remainder of the more posterior supraspinatus and infraspinatus tendons. T his is likely chronic given the moderate associated supraspinatus and infraspin atus muscular atrophy. 2. Mild glenohumeral osteoarthritis with tear at the posterosuperior glenoid la kristen. 3. Mild bicipital tenosynovitis with mild tendinopathy and longitudinal split t earing of the long head biceps tendon. 4. Moderate acromioclavicular osteoarthritis. 5. M
== END 2023-08-28 09:49 ==
PROVIDERS: PCP Family Medicine
DX: M75.102 Unspecified rotator cuff tear or rupture of left shoulder, not specified as traumatic (principal); M75.101 Unspecified rotator cuff tear or rupture of right shoulder, not specified as traumatic; M19.012 Primary osteoarthritis, left shoulder; M75.52 Bursitis of left shoulder; M50.30 Other cervical disc degeneration, unspecified cervical region; M19.011 Primary osteoarthritis, right shoulder; M75.51 Bursitis of right shoulder
CPT/HCPCS: 72141; 73221

== ENCOUNTER 2023-09-12 14:15 | Outpatient (CLI) | payer OTHER, SELFPAY ==
--- NOTE | ~2023-09-12 | US_ITS ---
EXAMINATION: US thyroid DATE: 09/12/2023 15:16 INDICATION: Disorder of thyroid with right thyroid nodule on recent cervical spine MR. TECHNIQUE: Multiple ultrasound images of the thyroid were obtained. COMPARISON: 08/28/2023 FINDINGS: The right thyroid lobe measures 6.0 x 2.0 x 3.0 cm. The left thyroid lobe measures 4.8 x 1.4 x 1.5 c m. There is a 2.7 x 2.5 x 1.4 cm mixed solid and cystic nodule, the the central and majority by volum e portion of the nodule is cystic with peripheral isoechoic solid component . The nodule is wider nazario n tall with smooth margins and without echogenic foci. (TI-RADS 2, not suspicious, no FNA recommended ). There is a 4 mm predominantly solid nodule with peripheral crescentic anechoic cystic region in th e left thyroid lobe which is wider than tall with isoechoic solid component, smooth margins and witho ut echogenic foci, also TI RADS 2. There are multiple additional subcentimeter TI RADS 1 cystic lesio ns throughout both thyroid lobes, the majority with small peripheral echogenic foci with comet tailin g consistent with colloid cysts. IMPRESSION: 1. Multinodular goiter with several TI-RADS 1 and TI-RADS 2 nodules in the the largest 2.7 cm TI RADS 2 nodules in the right thyroid lobe corresponding to the lesion of concern on prior MRI. No lesions meeting criteria for either biopsy or follow-up. Reviewed, dictated and finalized at location A.
== END 2023-09-12 14:16 | disposition home or self-care (01) ==
PROVIDERS: PCP Family Medicine; Visit Provider Family Medicine
DX: E07.9 Disorder of thyroid, unspecified (principal); E04.2 Nontoxic multinodular goiter
CPT/HCPCS: 76536

== ENCOUNTER 2024-04-07 12:44 | Outpatient (CLI) | payer OTHER, SELFPAY ==
--- NOTE | 2024-04-07 | ECHO_ITS ---
Patient Info Name: Krystle Retana Age: 63 years : 1960 Gender: Female Ht: 66 in Wt: 158 lbs BSA: 1.84 m2 HR: 69 bpm BP: 140 / 84 mmHg Heart Rhythm: Sinus Rhythm Technical Quality: Good Exam Date: 04/07/2024 12:58 PM Exam Location: Echo Lab Patient Status: Outpatient Admit Date: 04/07/2024 Staff Ordering Physician: LamonteHeriberto MD Station Mechanic Apprentice: Anitha Garcia RDCS Attending Provider: Lamonte, Heriberto Tejada MD Referring Physician: Lamonte TORRES; Exam Type: CA echo doppler color flow Study Info Indications - M35.1 disease of the musculoskeletal syatem Complete two-dimensional, color flow and Doppler transthoracic echocardiogram is performed. Strain analysis performed. Summary 1. Complete two-dimensional, color flow and Doppler transthoracic echocardiogram is performed. 2. Left ventricular chamber dimension is normal. 3. Left ventricular systolic function is normal, estimated at 60-65%. 4. The left ventricular diastolic function is normal. 5. E/e' 9 is minimally elevated. 6. Global longitudinal strain is normal at -21.6%. 7. There is mild aortic valve sclerosis. 8. There is trace aortic valve regurgitation. 9. There is mild mitral valve regurgitation. 10. There is trace tricuspid valve regurgitation. 11. No pulmonary hypertension, estimated pulmonary arterial systolic pressure is 25 mmHg. 12. There is trace pulmonic regurgitation. Left Ventricle E/e' 9 is minimally elevated. Global longitudinal strain is normal at -21.6%. Left ventricular chamber dimension is normal. Left ventricular systolic function is normal, estimated at 60-65%. The left ventricular diastolic function is normal. Right Ventricle Right ventricular systolic function is normal and with normal TAPSE 2.6 cm. Right ventricular chamber dimension is normal. Left Atria Left atrial chamber dimension is normal. Right Atria Right atrial chamber dimension is normal. Aortic Valve The aortic valve is trileaflet. There is mild aortic valve sclerosis. There is no aortic valve stenosis. There is trace aortic valve regurgitation. Pulmonic Valve There is trace pulmonic regurgitation. Mitral Valve There is no mitral valve stenosis. There is mild mitral valve regurgitation. Tricuspid Valve There is trace tricuspid valve regurgitation. No pulmonary hypertension, estimated pulmonary arterial systolic pressure is 25 mmHg. Pericardium/Pleural There is no pericardial effusion. Inferior Vena Cava Normal inferior vena cava with >50% collapse upon inspiration consistent with normal right atrial pressure, 5 mmHg. Aorta The aortic root size at the sinus of Valsalva is normal. Left Ventricular Outflow Tract Name Value Normal LVOT 2D LVOT Diameter 2.0 cm LVOT Doppler LVOT Peak Gradient 4 mmHg LVOT Mean Gradient 2 mmHg LVOT VTI 21 cm LVOT VTI/AV VTI Ratio 0.8 LVOT Stroke Volume 67 ml LVOT CO 4.3 l/min LVOT CI 2.3 l/min/m2 Pulmonic Valve Name Value Normal RVOT Doppler RVOT Peak Gradient 3 mmHg PV Doppler PV Peak Gradient 5 mmHg Mitral Valve Name Value Normal MV Doppler MV Decel Wilkes 553 cm/s2 MV PHT 50 ms MV Area (PHT) 4.4 cm2 4.0-5.0 MV Diastolic Function MV E Peak Velocity 95 cm/s MV A Peak Velocity 56 cm/s MV E/A 1.7 MV Decel Time 171 ms MV Annular TDI MV E/e' (Septal) 10.4 <=8.0 MV E/e' (Lateral) 9.5 <=8.0 MV E/e' (Average) 9.9 Tricuspid Valve Name Value Normal TV Regurgitation Doppler TR Peak Velocity 224 cm/s TR Peak Gradient 20 mmHg Estimated PAP/RSVP RA Pressure 5 mmHg <=5 PA Systolic Pressure 25 mmHg <36 RV Systolic Pressure 25 mmHg <36 Aorta Name Value Normal Ascending Aorta Ao Root Diameter (MM) 2.8 cm Ao Root Diam Index (MM) 1.5 cm/m2 Aortic Valve Name Value Normal AV Doppler AV Peak Velocity 119 cm/s AV Peak Gradient 6 mmHg AV Mean Gradient 3 mmHg AV VTI 27 cm AV Area (Cont Eq VTI) 2.4 cm2 >=3.0 AV Area (Cont Eq Miles) 2.7 cm2 AV Regurgitation 2D LVOT Area 3.2 cm2 AV Regurgitation Doppler AR Decel Time 1,309 ms AR Decel Wilkes 265 cm/s2 AR PHT 380 ms Ventricles Name Value Normal LV Dimensions 2D/MM IVS Diastolic Thickness (2D) 0.7 cm 0.6-1.0 LVID Diastole (2D) 4.4 cm 3.8-5.2 LVIW Diastolic Thickness (2D) 0.7 cm 0.6-0.9 LVID Systole (2D) 3.2 cm 2.2-3.5 LVOT Diameter 2.0 cm LV Mass (2D Cubed) 92.90 g 67.00-162.00 LV Mass Index (2D Cubed) 51 g/m2 43-95 Relative Wall Thickness (2D) 0.31 LV Fractional Shortening/Ejection Fraction 2D/MM LV Fractional Shortening (2D) 28 % 27-45 LV EF (2D Teicholz) 55 % 54-74 LV Diastolic Volume (4C MOD) 73 ml LV EF (4C MOD) 60 % LV Diastolic Volume (2C MOD) 50 ml LV EF (2C MOD) 64 % LV Diastolic Volume (BP MOD) 62 ml 46-106 LV Diastolic Volume Index (BP MOD) 34 ml/m2 29-61 LV Systolic Volume (BP MOD) 24 ml 14-42 LV Systolic Volume Index (BP MOD) 13 ml/m2 8-24 LV EF (BP MOD) 62 % 54-74 LV Diastolic Length (4C) 8.2 cm LV Systolic Length (4C) 6.8 cm LV Stroke Volume (4C MOD) 44 ml Atria Name Value Normal LA Dimensions LA Dimension (MM) 3.9 cm 2.7-3.8 LA Volume (4C A-L) 31 ml LA Volume (BP A-L) 43 ml RA Dimensions RA Area (4C) 17.7 cm2 <=18.0 EchoPAC Name Value Normal JAK AA peak sys SL (AWMA) 22.3 % AAS peak sys SL (AWMA) 26.5 % AI peak sys SL (AWMA) 25.3 % AL peak sys SL (AWMA) 20.9 % AP peak sys SL (AWMA) 27.2 % peak sys SL (AWMA) 22.8 % AVC (AWMA) 394 ms BA peak sys SL (AWMA) 19.5 % BAS peak sys SL (AWMA) 17.7 % BI peak sys SL (AWMA) 18.6 % BL peak sys SL (AWMA) 24.1 % BP peak sys SL (AWMA) 24.2 % BS peak sys SL (AWMA) 16.8 % G peak SL(A2C) (AWMA) 20.8 % G peak SL(A4C) (AWMA) 20.3 % G peak SL(APLAX) (AWMA) 23.7 % G peak SL(Avg) (AWMA) 21.6 % MA peak sys SL (AWMA) 20.1 % MAS peak sys SL (AWMA) 21.2 % KS peak sys SL (AWMA) 20.7 % ML peak sys SL (AWMA) 20.8 % MP peak sys SL (AWMA) 26.5 % MS peak sys SL (AWMA) 16.8 % Report Signatures
--- OUTSIDE RECORDS SUMMARY | 2024-04-07 12:50 | XMS_ITS | Clinical Summary ---
Author Organization [facility] [place] Address [address] [place] [address] Phone Care Team Providers Care Grain Grader Name Role Phone Andreas Souza MD Primary Care Provider [phone] Allergies Active Allergy Reactions Criticality Noted Date Comments Tapentadol Rash Medium 10/08/2013 Medications DICYCLOMINE HCL (DICYCLOMINE ORAL)Indication s:Family history of breast cancer,Diffuse cystic mastopathy Take by mouth. Active RESTASIS 0.05 % emulsionIndicat ions:Family history of breast cancer,Breast cancer screening, high risk patient 12/21/2012 Active hydroxychloroqu ine (PLAQUENIL) 200 mg tabletIndicatio ns:Diffuse cystic mastopathy, left,Diffuse cystic mastopathy, right,Family history of breast cancer Take 200 mg by mouth daily. Active nystatin (MYCOSTATIN) 100,000 unit/gram Cream 02/29/2016 Act chay triamcinolone acetonide (KENALOG) 0.1 % Cream 02/29/2016 Active metoprolol succinate (TOPROL XL) 25 mg Extended Release 24 hour tablet Take 25 mg by mouth daily. 09/07/2019 Active flecainide (TAMBOCOR) 100 mg tablet Take by mouth. 01/03/2020 Active lisinopriL (PRINIVIL) 5 mg tablet Take 5 mg by mouth daily. 09/19/2021 Active ascorbic acid, vitamin C, (VITAMIN C) 1,000 mg Tablet Take 1-2 Tablets by mouth. Active Biotin 1 mg Tablet Take 1 Tablet by mouth. Active cholecalciferol , Vitamin D3, 50 mcg (2,000 unit) Tablet Take 1 Tablet by mouth. Active L. acidophilus/Bif id. animalis 32 billion cell Capsule Take 1 Capsule by mouth daily. Active multivit-min/fe rrous fumarate (MULTI VITAMIN ORAL) Take by mouth. Active celecoxib (CeleBREX) 200 mg capsule Take 1 Capsule by mouth 2 times daily. 11/12/2023 Active cyanocobalamin (Vitamin B-12) 100 mcg tablet Take 1,000 mcg by mouth. Active acetaminophen (TYLENOL) 500 mg tablet Take 1,000 mg by mouth. 10/16/2023 Active Active Problems Patient Care Coordination No te Formatting of this note migh t be different from the original. Primary Care: Raheel Hardwick MD Referring Provider: Alina Urrutia MD [address] [place] [address] Other: Dr Victorina Nguyen Problem Noted Date Diagnosed Date Atrial fibrillation 01/17/2023 Injury of right femoral vein 01/16/2023 Pseudoaneurysm following procedure 01/16/2023 Pseudoaneurysm 01/16/2023 Chronic right shoulder pain 07/05/2020 Piriformis syndrome of left side 07/05/2020 Right lateral epicondylitis 07/05/2020 Paroxysmal atrial fibrillation 01/03/2020 Patellofemoral pain syndrome of left knee 2017 Sicca syndrome 10/08/2013 Sjogren's syndrome 04/14/2013 Irritable bowel syndrome 04/14/2013 Overview (02/05/2024): Annotation - 01Jun2014: typically constipation-predominant; recently explosive diarrhea intermittently after eating - noted especially when eating out Arthralgia of multiple sites 10/30/2011 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 Primary hypertension 10/30/2011 Diffuse cystic mastopathy 12/30/2009 Family history of breast cancer 12/30/2009 HTN (hypertension) IBS (irritable bowel syndrome) Eczema Basal cell ca face Overview (02/06/2012): basal cell in face Endometriosis Resolved Problems Problem Noted Date Diagnosed Date Resolved Date Atrial fibrillation 02/19/20 13 Encounters Date Type Department Care Team Description 03/31/2024 External Device Data STL ABSTRACTION Provider, Abstract 03/25/2024 External Device Data STL ABSTRACTION Provider, Abstract 03/24/2024 External Device Data STL ABSTRACTION Provider, Abstract 03/11/2024 Telephone [facility] Breast [facility] [facility] [address] [facility] [address] [place] [address] Edyta Huerta, SPA EXPERIENCE COORDINATOR Results (Genetic results) 03/10/2024 External Device Data STL ABSTRACTION Provider, Abstract 02/27/2024 Telephone [facility] Breast [facility] [address] [place] [address] [facility] [address] [place] [address] Liss Grullon, RN MyRisk Results 02/27/2024 Telephone [facility] Breast [facility] [address] [place] [address] [facility] [address] [place] [address] Liss Grullon, RN MyRisk Results 02/20/2024 3:00 PM ENGINE HEAD REPAIRER Clinical Support [facility] Breast [facility] [address] [address] [facility] [address] [place] [address] Edyta Huerta, SPA EXPERIENCE COORDINATOR At high risk for breast cancer (Primary Dx); Family history of breast cancer 02/06/2024 Telephone [facility] Breast [facility] [address] [place] [address] [facility] [address] [place] [address] Liss Grullon, RN Needs Appointment 02/06/2024 [facility] [facility] [facility] [address] [place] [address] Edyta Huerta, SPA EXPERIENCE COORDINATOR Mammogram Results 02/05/2024 3:45 PM ENGINE HEAD REPAIRER Office Visit [facility] Breast [facility] [place] [address] [facility] [address] [place] [address] Kishor Hunt MD McCarthy, Lindsey M, SPA EXPERIENCE COORDINATOR At high risk for breast cancer (Primary Dx); Family history of breast cancer; Encounter for screening breast examination; Breast cancer screening by mammogram; Family history of malignant neoplasm of breast in first degree relative diagnosed when younger than 50 years of age; Fibrocystic breast changes of both breasts 02/05/2024 3:00 PM ENGINE HEAD REPAIRER - 02/05/2024 11:59 PM ENGINE HEAD REPAIRER Hospital Encounter [facility] [address] [place] [address] Kishor Hunt MD McCarthy, Lindsey M, [facility] Discharge Disposition: Home or Self Care from Last 3 Months Family History Medical History Relation Name Comments Melanoma Father age 60 in nose Cancer Maternal Grandfather kidney Heart Disease Maternal Grandfather Cancer Maternal Grandmother tongue Breast Cancer Other 1 paternal great grandmother mid 60s Breast Cancer Other 2 paternal great aunt Breast Cancer Paternal Aunt age 40, aged 48 Stroke Paternal Grandfather Ovarian Cancer Neg Hx Uterine Cancer Neg Hx Relation Name Status Comments Father Alive Maternal Grandfather Maternal Grandmother Other 1 Other 2 Paternal Aunt Paternal Grandfather Social History Tobacco Use Types Packs/Day Years Used Date Smoking Tobacco: Never Smokeless Tobacco: Never Tobacco Cessation:Counseling Given: Not Answered Alcohol Use Standard Drinks/Week Comments No 0 (1 standard drink = 0.6 oz pur e alcohol) Feeling Safe Answer Date Recorded Do you worry about feeling s afe and happy with the people in your life? No 02/05/2024 Comments No Sex and Gender Information Value Date Recorded Sex Assigned at Not on file Legal Sex Female 5:07 AM ENGINE HEAD REPAIRER Gender Identity Not on file Sexual Orientation Not on file Occupation Industry Job Start Date Job End Date Not on file Not on file Not on file Not on file Not on file Not on file Not on file Not on file Last Filed Vital Signs Vital Sign Reading Time Taken Comments Blood Pressure 140/81 02/05/2024 3:37 PM ENGINE HEAD REPAIRER Pulse 71 02/05/2024 3:37 PM ENGINE HEAD REPAIRER Temperature 36.6 ??C (97.8 ??F) 10/12/2021 1:26 PM CD T Respiratory Rate - - Oxygen Saturation 99% 10/12/2021 1:26 PM CDT Inhaled Oxygen Concentration - - Weight 72.5 kg (159 lb 12.8 oz) 02/05/2024 3:37 PM ENGINE HEAD REPAIRER Height 167.6 cm (5' 6 ) 02/05/2024 3:37 PM ENGINE HEAD REPAIRER Body Mass Index 25.79 02/05/2024 3:37 PM ENGINE HEAD REPAIRER Plan of Treatment Upcoming Encounters Date Type Department Care Team (Late st Contact Info) Description 02/08/2025 2:50 PM ENGINE HEAD REPAIRER Appointment [facility] Breast [place] [address] [place] [address] Edyta Huerta, SPA EXPERIENCE COORDINATOR [address] [address] 02/08/2025 3:45 PM ENGINE HEAD REPAIRER Office Visit [facility] Breast Surgery [place] [address] [place] [address] Edyta Huerta, SPA EXPERIENCE COORDINATOR [address] [place] [address] Health Maintenance Due Date Last Done Comments Pre-Diabetes and Diabetes Screening 1960 CERVICAL CANCER SCREENING 1990 FIT-DNA Q 3 years 2005 FIT/FOBT Q 1 year 2005 Flex Sig/CT Colonography Q 5 years 2005 COVID-19 Vaccine (3 - Modern a risk series) 07/18/2020 06/20/2020, 05/23/2020 RSV VACCINE (60+ or ) (1 - Risk 60-74 years 1-dose series) 2020 INFLUENZA VACCINE (#1) 2023 , 01/15/2020, 12/09/2018, Additional history exists BREAST CANCER SCREENING 02/04/2025 02/05/20 24, 10/16/2022, 10/12/2021, Additional history exists COLORECTAL SCREENING 11/29/2025 11/30/2015 Colorectal Cancer Screening 11/29/2025 DTAP/TDAP/TD VACCINES (2 - T d or Tdap) 03/13/2027 03/13/2017 ZOSTER VACCINE Completed 07/29/2018, 07/23/2017 Procedures Procedure Name Priority Date/Time Associated Diagnosis Comments MAMMO 3D ELINA SCREEN BILAT W OR WO CAD Routine 02/05/2024 3:20 PM ENGINE HEAD REPAIRER Visit for screening mammogram from Last 3 Months Results * MAMMO SCRN BILAT 3D ELINA W OR WO CAD (02/05/2024 3:20 PM ENGINE HEAD REPAIRER) Anatomical Region Laterality Modality Breast Bilateral Mammography 02/05/2024 3:20 PM ENGINE HEAD REPAIRER Impressions 02/05/2024 4:33 PM ENGINE HEAD REPAIRER IMPRESSION: ?? 1. No concerning findings. OVERALL FINAL ASSESSMENT: ??BI-RADS CATEGORY 1 - ??Negative. RECOMMENDATIONS: ?? 1. Recommend annual mammography. DICTATION LOCATION: ??[facility] Narrative 02/05/2024 4:33 PM ENGINE HEAD REPAIRER BILATERAL SCREENING DIGITAL MAMMOGRAM WITH 3D TOMOSYNTHESIS AND CAD DATE: 02/05/2024 3:20 PM HISTORY: Routine yearly screening exam. TECHNIQUE: Low-dose full-field digital breast tomosynthesis examination was performed of both breasts with 2D and 3D acquisitions. CAD was utilized. COMPARISON: Studies dating back to September 2020 BREAST COMPOSITION: There are scattered areas of fibroglandular density. FINDINGS: No concerning dominant masses, suspicious calcifications, parenchymal asymmetries or areas of architectural distortion are identified in either breast. ?? Procedure Note Andreas Barker MD - 02/05/2024 BILATERAL SCREENING DIGITAL MAMMOGRAM WITH 3D TOMOSYNTHESIS AND CAD DATE: 02/05/2024 3:20 PM HISTORY: Routine yearly screening exam. TECHNIQUE: Low-dose full-field digital breast tomosynthesis examination was performed of both breasts with 2D and 3D acquisitions. CAD was utilized. COMPARISON: Studies dating back to September 2020 BREAST COMPOSITION: There are scattered areas of fibroglandular density. FINDINGS: No concerning dominant masses, suspicious calcifications, parenchymal asymmetries or areas of architectural distortion are identified in either breast. IMPRESSION: 1. No concerning findings. OVERALL FINAL ASSESSMENT: BI-RADS CATEGORY 1 - Negative. RECOMMENDATIONS: 1. Recommend annual mammography. DICTATION LOCATION: [facility] Kishor Hunt MD MAMMO ORDERABLES Ayla l Result from Last 3 Months Insurance [employer] [facility] [id number] Care Teams Grain Grader Relationship Specialty Start Date End Date Andreas Souza MD [address] [facility] [address] [place] [address] PCP - General Family Practice 02/05/24
--- OUTSIDE RECORDS SUMMARY | 2024-04-07 12:51 | XMS_ITS | Encounter Summary ---
Author Organization [facility] Address [address] [place] [address] Care Team Providers Care World History Teacher Name Role Phone Andreas Souza MD Primary Care Provider [phone] Encounter Details Date Type Department Care Team (Late st Contact Info) Description 05/08/1999 Outpatient Historical [facility] Tracy Petersen MD NO ADDRESS ON FILE Anal and rectal polyp (Primary Dx) Social History Tobacco Use Types Packs/Day Years Used Date Smoking Tobacco: Never Assessed Comments Unknown Sex and Gender Information Value Date Recorded Sex Assigned at Not on file Legal Sex Female 5:07 AM EXTRACTION MACHINE OPERATOR Gender Identity Not on file Sexual Orientation Not on file documented as of this encounter Plan of Treatment Upcoming Encounters Date Type Department Care Team (Late st Contact Info) Description 02/08/2025 2:50 PM EXTRACTION MACHINE OPERATOR Appointment [facility] Sarath Arias [address] [place] [phone] Edyta Huerta, REFINERY OPERATOR HELPER [address] [place] [address] 02/08/2025 3:45 PM EXTRACTION MACHINE OPERATOR Office Visit [facility] Breast Surgery Sarath [address] [place] [address] Edyta Huerta, REFINERY OPERATOR HELPER [address] [place] [address] documented as of this encounter Visit Diagnoses Diagnosis Anal and rectal polyp- Primary documented in this encounter Care Teams World History Teacher Relationship Specialty Start Date End Date Andreas Souza MD [address] [facility] [address] [place] [address] PCP - General Family Practice 02/05/24 documented as of this encounter
--- OUTSIDE RECORDS SUMMARY | 2024-04-07 12:52 | XMS_ITS | Referral Summary ---
Author Organization [facility] Address [address] [place] [address] Care Team Providers Care Neurology Tech Name Role Phone Tanner Felipe MD Unavailable [phone] Pcp, Verify Primary Care Provider Unavailabl e Allergies Active Allergy Reactions Criticality Noted Date Comments Warfarin RASH 11/21/2022 Medications Medication Sig Dispensed Refills Start Date End Date Status cycloSPORINE (RESTASIS) 0.05 % ophthalmic emulsion Place 1 drop into both eyes in the morning and 1 drop in the evening. Active dicyclomine (BENTYL) 20 MG tablet Take 20 mg by mouth as needed. Active hydroxychloroquine (PLAQUENIL) 200 MG tablet Take 200 mg by mouth daily. Active lisinopril (ZESTRIL) 10 MG tablet Take 10 mg by mouth daily. Active metoPROLOL succinate (TOPROL-XL) 25 MG 24 hr tablet Take 25 mg by mouth daily. Active Probiotic Product (PROBIOTIC-10 PO) Take by mouth daily. Active Active Problems No known active problems Social History Tobacco Use Types Packs/Day Years Used Date Smoking Tobacco: Never Smokeless Tobacco: Never Tobacco Cessation:Counseling Given: Not Answered Alcohol Use Standard Drinks/Week Comments Never 0 (1 standard drink = 0.6 oz pur e alcohol) PHQ-2 Answer Date Recorded Initial depression screening score: 0 01/14/2023 Inadequate Housing Answer Date Recorded Social Determinants: Housing (Overall Score Help er) 0 01/14/2023 Sex and Gender Information Value Date Recorded Sex Assigned at Not on file Gender Identity Not on file Sexual Orientation Not on file Job Start Date Occupation Industry Not on file Not on file Not on file Last Filed Vital Signs Vital Sign Reading Time Taken Comments Blood Pressure 144/85 08/15/2023 11:20 AM CDT Pulse 78 08/15/2023 11:20 AM CDT Temperature 36.4 ??C (97.5 ??F) 01/14/2023 12:[address] Respiratory Rate 21 01/14/2023 4:00 PM [employer] Oxygen Saturation 97% 08/15/2023 11:20 AM CDT Inhaled Oxygen Concentration - - Weight 71.5 kg (157 lb 9.6 oz) 08/15/2023 11:20 AM CDT Height 165.1 cm (5' 5 ) 08/15/2023 11:20 AM CDT Body Mass Index 26.23 08/15/2023 11:20 AM CDT Plan of Treatment Upcoming Encounters Date Type Department Care Team (Late st Contact Info) Description 08/20/2024 12:30 PM CDT Office Visit [facility] in [address] [phone] Tanner Felipe MD [address] [place] [address] Medical Devices Implanted Type Area System Manager Device Identifier Shelf Expiration Date Model / Serial / Lot System Clsr Vascade Mvp 6-12fr Vns - [id number] Implanted:Qty : 2 on 01/14/2023 by Tanner Felipe MD at [facility] Other Implant Right: Femoral Vein [employer] [id number] 09/12/2024 800-612C- [id number] / / [id number] 14C System Clsr Vascade Mvp 6-12fr Vns - [id number] Implanted:Qty : 2 on 01/14/2023 by Tanner Felipe MD at [facility] Other Implant Left: Femoral Vein [employer] [id number] 09/12/2024 [id number] [id number] / / [id number] 14C Advance Directives * Full Resuscitation (Latest Code Status on File) Date Activated Date Inactivated Comments 01/14/2023 12:17 PM 01/14/2023 7:36 PM Care Teams Neurology Tech Relationship Specialty Start Date End Date Pcp, Verify PCP - General 07/17/23 Tanner Felipe MD [address] [place] [address] Internal Medicine - Clinical Cardiac Electrophysiology 07/17/23
--- OUTSIDE RECORDS SUMMARY | 2024-04-07 12:52 | XMS_ITS | Clinical Summary ---
Author Organization [facility] Address [facility] [place] [address] [place] [address] Care Team Providers Care Produce Clerk Name Role Phone Pat Cazares NP Primary Care Provider [phone] Allergies Active Allergy Reactions Criticality Noted Date Comments Amoxicillin Diarrhea Low 10/08/2013 Azithromycin Diarrhea Medium 01/03/2019 Sulfamethoxazole-Trimethoprim Diarrhea Medium 2015 C-Diff Tape Rash Medium 10/08/2013 Warfarin Unknown Medium 08/12/2012 Medications vitamin C 1000 MG tablet Take 1 tablet by mouth 2 (two) times daily. 5 Active Biotin 1000 MCG Tab Take 2 tablets by mouth 2 (two) times daily. 5 Active vitamin D3, cholecalciferol, 1000 UNIT Tab tablet Take 1 tablet by mouth daily. 4 Active cycloSPORINE 0.05 % ophthalmic emulsion Apply 1 drop to eye 2 (two) times daily. 4 Active nystatin cream Apply topically 2 (two) times daily as needed. 8 Active triamcinolone 0.1 % cream 8 Active dicyclomine 20 MG tablet Active flecainide 100 MG tablet Take by mouth 2 (two) times a day. 0 Active Probiotic Product (PROBIOTIC-10 ULTIMATE) Cap Take 1 capsule by mouth daily. Active METOPROLOL SUCCINATE ER OR Take 25 mg by mouth daily. 0 Active hydroxychloroquine 200 MG tablet 1 Active triamcinolone 0.5 % cream as needed. 1 Active ondansetron 4 MG disintegrating tabletIndications: Left maxillary sinusitis,Irritabl e bowel syndrome, unspecified type Take 1 tablet (4 mg total) by mouth every 8 (eight) hours as needed for Nausea. 20 tablet 1 Active albuterol sulfate HFA 108 (90 Base) MCG/ACT inhaler INHALE 1 PUFF BY MOUTH FOUR TIMES DAILY NEEDED FOR SHORTNESS OF BREATH OR WHEEZING 2 Active benzonatate 200 MG capsule Take 200 mg by mouth as needed in the morning and 200 mg as needed at noon and 200 mg as needed in the evening. FOR COUGH 2 Active Active Problems Problem Noted Date Diagnosed Date H/O basal cell carcinoma excision 02/07/2021 Overview (02/07/2021): basal cell in face Chronic right shoulder pain 07/05/2020 Right lateral epicondylitis 07/05/2020 Piriformis syndrome of left side 07/05/2020 Paroxysmal atrial fibrillation ([facility]) 01/03/2020 Patellofemoral pain syndrome of left knee 2017 Irritable bowel syndrome 04/14/2013 Overview (01/09/2018): Annotation - 01Jun2014: typically constipation-predominant; recently explosive diarrhea intermittently after eating - noted especially when eating out Sjogrens syndrome ([facility]) 04/14/2013 Varicose veins of right lower extremity with inf lammation 04/14/2013 Arthralgia of multiple sites 10/30/2011 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 Primary hypertension 10/30/2011 Family history of breast cancer 12/30/2009 Resolved Problems Problem Noted Date Diagnosed Date Resolved Date Perimenopausal vasomotor symptoms 04/14/2013 02/07/2021 Encounters Date Type Department Care Team Description 01/23/2024 Telephone [facility] Multispecial[facility] - [address] [place] [phone] Mil Saab MD Question from Last 3 Months Immunizations Name Administration Dates Next Due COVID-19 Vaccine (Generic) 05/23/2020 Influenza (Generic) 01/30/2021, 8,02/17/2017, 016,02/23/2013,01/17/2012 Influenza Adult (Generic) 01/15/2020,12/09/2018, 12/22/2013 MODERNA COVID-19 (12+) MRNA, LNP-S, PF, 100 MCG/ 0.5 ML DOSE 06/20/2020 Shingrix 07/30/2018,07/23/2017 Tdap (Generic) 03/13/2017 Social History Tobacco Use Types Packs/Day Years Used Date Smoking Tobacco: Never Smokeless Tobacco: Never Tobacco Cessation:Counseling Given: No Alcohol Use Standard Drinks/Week Comments No 0 (1 standard drink = 0.6 oz pur e alcohol) AUDIT-C Answer Date Recorded Frequency of Alcohol Consumption Never 01/09/2018 Average Number of Drinks Not on file 018 Frequency of Binge Drinking Not on file 10/2017 PHQ-2 Answer Date Recorded PHQ-2 Score - If the patient scores above 3, please move on to questions 3-9 0 07/24/2021 Comments No Sex and Gender Information Value Date Recorded Sex Assigned at Not on file Legal Sex Female 11:41 PM CDT Gender Identity Not on file Sexual Orientation Not on file Last Filed Vital Signs Vital Sign Reading Time Taken Comments Blood Pressure 130/90 07/24/2021 2:20 PM CDT Pulse 79 07/24/2021 1:56 PM CDT Temperature 37.5 ??C (99.5 ??F) 07/24/2021 1:56 PM CD T Respiratory Rate 18 07/24/2021 1:56 PM CDT Oxygen Saturation 100% 07/24/2021 1:56 PM CDT Inhaled Oxygen Concentration - - Weight 73 kg (161 lb) 07/24/2021 1:56 PM CDT Height 167.6 cm (5' 6 ) 07/24/2021 1:56 PM CDT Body Mass Index 25.99 07/24/2021 1:56 PM CDT Plan of Treatment Health Maintenance Due Date Last Done Comments Cervical Cancer Screening Pap Smear (Age 30 to 64) Every 3 Years 1960 Annual Physical 07/23/1963 PHQ-2 (Physician [place]) 1972 Hepatitis C 1978 Cervical Cancer Screening Pap with HPV Testing (Age 30 to 64) Every 5 Years 1990 Cervical Cancer Screening with HPV 1990 RSV Immunization or 60+ Years (1 - Risk 60-74 years 1-dose series) 2020 Mammogram Screening 10/13/2023 10/12/2021 COVID-19 Vaccine ( season) 2023 06/20/2020, 05/23/2020, 05/23/2020 Influenza Adult (#1) 2023 01/30/2021, 01/15/2020, 12/09/2018, Additional history exists PHQ-2 (Physician [place]) 03/04/2024 Colorectal Cancer Screening Colonoscopy (10 Years) 11/29/2025 11/30/2015 DTaP, Tdap and Td Vaccines (2 - Td or Tdap) 03/13/2027 03/13/2017 Zoster Vaccines Completed 07/30/2018, 07/23/2017 Meningococcal B Vaccine Aged Out No l onger eligible based on patient's age to complete this topic Meningococcal Vaccine Aged Out No nisha thom eligible based on patient's age to complete this topic Pneumococcal Vaccine: Pediatrics (0 to 5 Years) and At-Risk Patients (6 to 64 Years) Aged Out No longer eligible based on patient's age to complete this topic RSV Immunizations Under 20 Months Aged Out No longer eligible based on patient's age to complete this topic Procedures Procedure Name Priority Date/Time Associated Diagnosis Comments MAMMOGRAM GENERIC (SCAN ORDER) Routine 10/12/2021 COLONOSCOPY Routine 11/30/2015 12:00 AM CDT from Last 3 Months or Most Recently Relevant to Health Maintenance Results * MAMMOGRAM (10/12/2021) Anatomical Region Laterality Modality Other us Doc [facility] Scanned SCANNING Final Resu lt * Colonoscopy (11/30/2015 12:00 AM CDT) 11/30/2015 11/30/2015 Narrative [facility] TO EPIC CONVERSION - 11/30/2015 12:00 AM CDT Documented hx of procedure Procedure Note Alexandra Etienne MD - 01/05/2018 Documented hx of procedure us Generic Demetris Etienne MD GI PROCEDURE ORDERABLES Final Result [facility] TO EPIC CONVERSION from Last 3 Months or Most Recently Relevant to Health Maintenance Insurance [facility] Care Teams Produce Clerk Relationship Specialty Start Date End Date Pat Cazares NP [address] [place] [address] (work) PCP - General NURSE PRACTITIONER 07/21/21
--- OUTSIDE RECORDS SUMMARY | 2024-04-07 12:52 | XMS_ITS | Referral Summary ---
Author Organization [facility] Address [address] [facility] [place] [address] Care Team Providers Care Meat Packager Name Role Phone Andreas Souza MD Primary Care Provider [phone] Source Comments [facility],non-owned Affiliates and Associated Physician Practices is amultiple site organization consisting of ambulatory clinics and hospital sitesin [place], [place], [place] and [place]. This disclosure is being madepursuant to the Care Everywhere program and may not contain all information available regarding this patient. Last updated 17.[facility] Encounters Date Type Department Care Team Description 02/04/2024 Travel 02/04/2024 9:15 AM TALENT ACQUISITION PROGRAM MANAGER Office Visit [facility] - Orthopedics [address] [place] [phone] Lily Murphy MD Nontraumatic complete tear of right rotator cuff (Primary Dx) from Last 3 Months Allergies Active Allergy Reactions Criticality Noted Date Comments Adhesive Sensitivity Rash Medium 10/08/2013 Amoxicillin Diarrhea Low 10/08/2013 Azithromycin Diarrhea Low 01/03/2019 Warfarin Rash Medium 10/08/2013 Medications * Be aware that medications may not be up to date on this document. Alwaysverify current medications with the patient. Medication Sig Dispensed Refills Start Date End Date Status Biotin 1000 MCG Take 2 (two) tablets by mouth 2 times daily 12/24/2014 Active dicyclomine (BENTYL) 10 MG capsule Take 1 (one) capsule by mouth 4 times daily as needed after meals/at bedtime 09/06/2010 Active vitamin C (ASCORBIC ACID) 1000 MG tablet Take 1 (one) tablet by mouth 2 times daily 12/24/2014 Active vitamin D3-cholecalciferol (CHOLECACIFEROL) 1000 UNITS tablet Take 1 (one) tablet by mouth 2 times daily 04/14/2013 Active cycloSPORINE (RESTASIS) 0.05 % ophthalmic suspension 1 (one) drop by Ophthalmic route 2 times daily 04/14/2013 Active metoprolol succinate XL 24hr (TOPROL XL) 25 MG tablet Take 0.5 (one-half) tablet by mouth once daily 09/07/2019 Active Probiotic Product (ACIDOPHILUS/GOAT MILK) CAPS Take 1 capsule by mouth once daily Active lisinopril (Prinivil; Zestril) 10 MG tablet Take 1 (one) tablet by mouth once daily 01/19/2022 Active hydroxychloroquine (Plaquenil) 200 MG tabletIndications:S jogren's syndrome, with unspecified organ involvement (HCC) TAKE 1 & 1/2 (ONE & ONE-HALF) TABLETS BY MOUTH ONCE DAILY 135 tablet 3 09/30/2023 Active bismuth subsalicylate (Pepto-Bismol;Kaope ctate) 262 MG/15ML suspension Take 262 mg by mouth every 1 hour as needed Active acetaminophen (Tylenol) 500 MG tablet Take 2 (two) tablets by mouth 3 times daily Maximum allowable Acetaminophen amount = 4 Grams (4000 mg) / 24 hours. 10/16/2023 Active Additional Information Patient taking differently:1,000 mg OralPRN, Pain, as needed, Maximum allowable Acetaminophen amount = 4 Grams (4000 mg) / 24 hours., Reported on 12/17/2023 Active Problems Problem Noted Date Diagnosed Date Atrial fibrillation 01/17/2023 Sjogren's syndrome 01/17/2023 Hypertension 01/17/2023 Pseudoaneurysm 01/16/2023 Injury of right femoral vein, initial encounter 01/16/2023 Pseudoaneurysm following procedure 01/16/2023 Resolved Problems Problem Noted Date Diagnosed Date Resolved Date Fibromyalgia 01/17/2023 01/17/2023 Osteoarthritis 01/17/2023 01/17/2023 Immunizations Name Administration Dates Next Due INFLUENZA VACCINE, TRIV. (AF LURIA, FLUZONE TRIVALENT; 6MO+) (IIV3) 01/11/2016 Covid Moderna primary monova lent 12+ yr 0.5mL 06/20/2020,05/23/2020 INFLUENZA VACCINE 12/09/2018, 8,02/17/2017,2015,12/22/2013,02/23/2013,01/17/2012 INFLUENZA VACCINE, QUADR. (F LUZONE; FLULAVAL; FLUARIX; AFLURIA QUADRIVALENT; 6MO+), 0.5 ML (IIV4) 01/15/2020,12/09/2018 TDAP (7yrs+) 03/13/2017 Zoster Hzv Vacc Recombinant Inj Im 07/29/2018, iNFLUENZA VACCINE, RECOM-SUTTON, QUADR. (FLUBLOCK QUADRIVALENT; 18Y+) (RIV4) 01/30/2021 Social History Tobacco Use Types Packs/Day Years Used Date Smoking Tobacco: Never Smokeless Tobacco: Never Tobacco Cessation:Counseling Given: Not Answered Alcohol Use Standard Drinks/Week Comments No 0 (1 standard drink = 0.6 oz pur e alcohol) AUDIT-C Answer Date Recorded Q1: How often do you have a drink containing alc ohol? Never 01/17/2023 Average Number of Drinks Not on file 023 Frequency of Binge Drinking Not on file 01/02 PHQ-2 Answer Date Recorded Patient Health Questionnaire-2 Score 0 02/04/2024 Sex and Gender Information Value Date Recorded Sex Assigned at Not on file Gender Identity Not on file Sexual Orientation Not on file Last Filed Vital Signs Vital Sign Reading Time Taken Comments Blood Pressure 121/85 12/17/2023 12:56 PM CDT Pulse 77 12/17/2023 12:56 PM CDT Temperature 36.7 ??C (98 ??F) 12/17/2023 12:56 PM CDT Respiratory Rate 16 10/16/2023 6:34 PM CDT Oxygen Saturation 99% 12/17/2023 12:56 PM CDT Inhaled Oxygen Concentration - - Weight 72.1 kg (159 lb) 12/17/2023 12:56 PM CDT Height 167.6 cm (5' 6 ) 12/17/2023 12:56 PM CDT Body Mass Index 25.66 12/17/2023 12:56 PM CDT Functional Status Functional Status Response Date of Assess ment Is person deaf or have serious hearing difficult y? No 10/16/2023 Is person blind or have serious difficulty seein g? No 10/16/2023 Does person have serious dif ficulty walking/climbing stairs? No 10/16/2023 Does person have difficulty dressing/bathing? No 10/16/2023 Does person have difficulty doing errands alone? No 10/16/2023 Cognitive Status Response Date of Assessm ent Does person have difficulty concentrating/remembering/making decisions? No 10/16/2023 Plan of Treatment Upcoming Encounters Date Type Department Care Team (Late st Contact Info) Description 05/12/2024 9:15 AM CDT Office Visit [facility] - Orthopedics [address] [place] [phone] Lily Murphy MD [address] [place] [address] [address] DIV [place] [phone] 06/22/2024 1:20 PM CDT Office Visit [facility] - Rheumatology [address] [place] [phone] Heriberto Aburto MD [address] [place] [address] [address] [place] [phone] Medical Devices Implanted Type Area High Frequency Mill Operator Device Identifier Shelf Expiration Date Model / Serial / Lot Sys Impl 4.75mm Speedbridge Swivelock Implanted:Qty: 1 on 10/16/2023 by Lily Murphy MD at [facility] Right: Shoulder [employer] [id number] 06/02/2027 AR-2600SB S-10 / / [id number] Swivelock Kntls 4.75mm Bc Implanted:Qty: 1 on 10/16/2023 by Lily Murphy MD at [facility] Right: Shoulder [employer] [id number] 03/03/2027 AR-2324KB CC / / Sys Fx Alex 4.75mm Mf Scrpn Swivelock Implanted:Qty: 1 on 10/16/2023 by Lily Murphy MD at [facility] Right: Shoulder [employer] [id number] 06/01/2025 AR-2324BC / / [id number] Fbertak Button Implant System Implanted:Qty: 2 on 10/16/2023 by Lily Murphy MD at [facility] Right: Shoulder [id number] 04/03/2028 AR-3680 / / [id number] Procedures Procedure Name Priority Date/Time Associated Diagnosis Comments COMPREHENSIVE METABOLIC PANEL Routine 01/03/2024 11:24 AM CDT Sjogren's syndrome, with unspecified organ involvement (HCC) from Last 3 Months or Most Recently Relevant to Health Maintenance Results * COMPREHENSIVE METABOLIC PANEL (01/03/2024 11:24 AM CDT) Glucose 90 65 - 99 mg/dL [facility] Comment: ? Fasting reference interval BUN 14 7 - 25 mg/dL [facility] Creatinine 0.90 0.50 - 1.05 mg/dL [facility] eGFR by Cystatin C 72 > OR = 60 mL/min/1. 73m2 [facility] BUN/Creatinine Ratio SEE NOTE: 6 - 22 (calc) [facility] Comment: ?? Not Reported: BUN and Creatinine are within ?? reference range. ? Sodium 135 135 - 146 mmol/L [facility] Potassium 4.2 3.5 - 5.3 mmol/L [facility] Chloride 102 98 - 110 mmol/L [facility] CO2 24 20 - 32 mmol/L [facility] Calcium 9.7 8.6 - 10.4 mg/dL [facility] Protein Total 6.7 6.1 - 8.1 g/dL [facility] Albumin 4.3 3.6 - 5.1 g/dL [facility] Globulin Total 2.4 1.9 - 3.7 g/dL (calc) [facility] Albumin/Globulin Ratio 1.8 1.0 - 2.5 (calc) [facility] Bilirubin Total 0.5 0.2 - 1.2 mg/dL [facility] Alkaline Phosphatase 78 37 - 153 U/L [facility] AST 19 10 - 35 U/L [facility] ALT 19 6 - 29 U/L [facility] Comment: Test Performed at: [facility] ??[phone] RAI BETANCOURT MD Blood BLOOD SPECIMEN / Unknown 01/03/2024 11:24 AM CDT 01/03/2024 11:24 AM CDT Heriberto Aburto MD LAB - CHEMISTRY [place] [facility] [address] [place] [address] from Last 3 Months or Most Recently Relevant to Health Maintenance Advance Directives * Full Code (Latest Code Status on File) Date Activated Date Inactivated Comments 01/16/2023 10:43 PM 01/18/2023 2:58 PM Care Teams Meat Packager Relationship Specialty Start Date End Date Andreas Souza MD [address] [place] [address] PCP - General Family Medicine 12/04/22
--- OUTSIDE RECORDS SUMMARY | 2024-04-07 12:52 | XMS_ITS | Encounter Summary ---
Author Organization [facility] Address [address] Rivas: [place] [address] Care Team Providers Care Coding Specialist Name Role Phone Andreas Souza MD Primary Care Provider [phone] Encounter Details Date Type Department Care Team (Late st Contact Info) Description 10/14/1990 Outpatient Historical Pancho Maurice MD [address] [address] Social History Tobacco Use Types Packs/Day Years Used Date Smoking Tobacco: Never Assessed Comments Unknown Sex and Gender Information Value Date Recorded Sex Assigned at Not on file Legal Sex Female 5:07 AM DIRECTOR REACTOR PROJECTS Gender Identity Not on file Sexual Orientation Not on file documented as of this encounter Plan of Treatment Upcoming Encounters Date Type Department Care Team (Late st Contact Info) Description 02/08/2025 2:50 PM DIRECTOR REACTOR PROJECTS Appointment [facility] [address] [place] [address] Edyat Huerta, KITCHEN WORKER [address] [place] [address] 02/08/2025 3:45 PM DIRECTOR REACTOR PROJECTS Office Visit [facility] Breast Surgery [address] Ari[address] [address] [address] [facility] [address] [place] [address] Edyta Huerta, KIZZY [address] [place] [address] documented as of this encounter Visit Diagnoses Not on filedocumented in this encounter Care Teams Coding Specialist Relationship Specialty Start Date End Date Andreas Souza MD [address] [facility] [address] [place] [phone] PCP - General Family Practice 02/05/24 documented as of this encounter
--- OUTSIDE RECORDS SUMMARY | 2024-04-07 12:52 | XMS_ITS | Patient Health Summary ---
Author Organization [facility] Address [address] [place] [address] Care Team Providers Care Meat Lugger Name Role Phone Andreas Souza MD Primary Care Provider [phone] Note from [facility],non-owned Affiliates and Associated Physician Practices is amultiple site organization consisting of ambulatory clinics and hospital sitesin [place], [place], [place] and [place]. This disclosure is being madepursuant to the Care Everywhere program and may not contain all information available regarding this patient. Last updated 17.[facility] Allergies * Adhesive Sensitivity(Rash) -Medium Criticality * Amoxicillin(Diarrhea) -Low Criticality * Azithromycin(Diarrhea) -Low Criticality * Warfarin(Rash) -Medium Criticality * Sulfamethoxazole W-Trimethoprim(Diarrhea) -High Criticality,Inactive Medications * Be aware that medications may not be up to date on this document. Alwaysverify current medications with the patient. * Biotin 1000 MCG(Started 12/24/2014) Take 2 (two) tablets by mouth 2 times daily * dicyclomine (BENTYL) 10 MG capsule(Started 09/06/2010) Take 1 (one) capsule by mouth 4 times daily as needed after meals/at bedtime * vitamin C (ASCORBIC ACID) 1000 MG tablet(Started 12/24/2014) Take 1 (one) tablet by mouth 2 times daily * vitamin D3-cholecalciferol (CHOLECACIFEROL) 1000 UNITS tablet(Started 04/14/2013) Take 1 (one) tablet by mouth 2 times daily * cycloSPORINE (RESTASIS) 0.05 % ophthalmic suspension(Started 04/14/2013) 1 (one) drop by Ophthalmic route 2 times daily * metoprolol succinate XL 24hr (TOPROL XL) 25 MG tablet(Started 09/07/2019) Take 0.5 (one-half) tablet by mouth once daily * Probiotic Product (ACIDOPHILUS/GOAT MILK) CAPS Take 1 capsule by mouth once daily * lisinopril (Prinivil; Zestril) 10 MG tablet(Started 01/19/2022) Take 1 (one) tablet by mouth once daily * hydroxychloroquine (Plaquenil) 200 MG tablet(Started 09/30/2023) TAKE 1 & 1/2 (ONE & ONE-HALF) TABLETS BY MOUTH ONCE DAILY 3 refills by 09/29/2024 * bismuth subsalicylate (Pepto-Bismol;Kaopectate) 262 MG/15ML suspension Take 262 mg by mouth every 1 hour as needed * acetaminophen (Tylenol) 500 MG tablet(Started 10/16/2023) Take 2 (two) tablets by mouth 3 times daily Maximum allowable Acetaminophen amount = 4 Grams (4000 mg) / 24 hours. Active Problems Problem Noted Date Diagnosed Date Atrial fibrillation 01/17/2023 Sjogren's syndrome 01/17/2023 Hypertension 01/17/2023 Pseudoaneurysm 01/16/2023 Injury of right femoral vein, initial encounter 01/16/2023 Pseudoaneurysm following procedure 01/16/2023 Resolved Problems Problem Noted Date Diagnosed Date Resolved Date Fibromyalgia 01/17/2023 01/17/2023 Osteoarthritis 01/17/2023 01/17/2023 Immunizations * INFLUENZA VACCINE, TRIV. (AFLURIA, FLUZONE TRIVALENT; 6MO+) (IIV3)(Given 01/11/2016) * Covid Moderna primary monovalent 12+ yr 0.5mL(Given 06/20/2020, 05/23/2020) * INFLUENZA VACCINE(Given 12/09/2018, 01/02/2018, 02/17/2017, 01/03/2016, 12/22/2013, 02/23/2013, 01/17/2012) * INFLUENZA VACCINE, QUADR. (FLUZONE; FLULAVAL; FLUARIX; AFLURIA QUADRIVALENT; 6MO+), 0.5 ML (IIV4)(Given 01/15/2020, 12/09/2018) * TDAP (7yrs+)(Given 03/13/2017) * Zoster Hzv Vacc Recombinant Inj Im(Given 07/29/2018, 07/23/2017) * iNFLUENZA VACCINE, RECOM-SUTTON, QUADR. (FLUBLOCK QUADRIVALENT; 18Y+) (RIV4)(Given 01/30/2021) Social History Tobacco Use Types Packs/Day Years [...] Mass Index 25.66 12/17/2023 12:56 PM CDT Medical Devices Implanted Type Area Projection Technician Device Identifier Shelf Expiration Date Model / Serial / Lot Sys Impl 4.75mm Speedbridge Carlitosvelock Implanted:Qty: 1 on 10/16/2023 by Lily Murphy MD at [facility] Right: Shoulder [employer] [id number] 06/02/2027 AR-2600SB S-10 / / [id number] Swivelock Kntls 4.75mm Bc Implanted:Qty: 1 on 10/16/2023 by Lily Murphy MD at [facility] Right: Shoulder [employer] [id number] 03/03/2027 AR-2324KB CC / / Sys Fx Alex 4.75mm Mf Scrpn Swivelock Implanted:Qty: 1 on 10/16/2023 by Lily Murphy MD at [facility] Right: Shoulder [employer] [id number] 06/01/2025 AR-2324BC / / [id number] Fbertak Button Implant System Implanted:Qty: 2 on 10/16/2023 by Lily Murphy MD at [facility] Right: Shoulder [id number] 04/03/2028 AR-3680 / / [id number] Procedures * SCLEROSIS 12 ANTIBODY PNL(Performed 01/03/2024) Performed for Sjogren's syndrome, with unspecified organ involvement (HCC) * COMPREHENSIVE METABOLIC PANEL(Performed 01/03/2024) Performed for Sjogren's syndrome, with unspecified organ involvement (HCC) * ALDOLASE(Performed 12/03/2023) * C-REACTIVE PROTEIN(Performed 12/03/2023) * URINALYSIS W/MICROSCOPIC REFLEX TO CULTURE(Performed 12/03/2023) * CBC W AUTO DIFFERENTIAL(Performed 12/03/2023) * ERYTHROCYTE SEDIMENTATION RATE(Performed 12/03/2023) * CK BLOOD(Performed 12/03/2023) * COMPREHENSIVE METABOLIC PANEL(Performed 12/03/2023) * CULTURE URINE REFLEXED III(Performed 12/03/2023) * VAS BILATERAL VENOUS DUPLEX LE(Performed 10/31/2023) Performed for Leg swelling * CARDIAC RHYTHM STRIP ORDER(Performed 10/18/2023) * IMAGING/RADIOLOGY/XRAY RESULTS ORDER(Performed 10/18/2023) * ENDOTRACHEAL TUBE NOTE(Performed 10/16/2023) * PERIPHERAL BLOCK(Performed 10/16/2023) * SD SCOPE SHLDR SURG;W/ROTOR CUFF(Performed 10/16/2023) Performed for Nontraumatic complete tear of right rotator cuff, Bicipital tendonitis of right shoulder * XR KNEE LEFT 4VW OR MORE(Performed 10/03/2023) Performed for Pain in both knees, unspecified chronicity * XR KNEE RIGHT 4VW OR MORE(Performed 10/03/2023) Performed for Pain in both knees, unspecified chronicity * XR SHOULDER LEFT 2VW OR MORE(Performed 06/11/2023) Performed for Sjogren's syndrome, with unspecified organ involvement (HCC), Pain in joint of left shoulder * XR SHOULDER RIGHT 2VW OR MORE(Performed 06/11/2023) Performed for Sjogren's syndrome, with unspecified organ involvement (HCC), Pain in joint of left shoulder * XR CERVICAL SPINE 4 OR 5VW(Performed 06/11/2023) Performed for Sjogren's syndrome, with unspecified organ involvement (HCC), Pain in joint of left shoulder * ALDOLASE(Performed 05/09/2023) * IMMUNOGLOBULINS IGG/IGM/IGA PANEL(Performed 05/09/2023) * C-REACTIVE PROTEIN(Performed 05/09/2023) * COMPLEMENT C4(Performed 05/09/2023) * COMPLEMENT C3(Performed 05/09/2023) * URINALYSIS W/MICROSCOPIC REFLEX TO CULTURE(Performed 05/09/2023) * CBC W AUTO DIFFERENTIAL(Performed 05/09/2023) * ERYTHROCYTE SEDIMENTATION RATE(Performed 05/09/2023) * SCLEROSIS 12 ANTIBODY PNL(Performed 05/09/2023) * CK BLOOD(Performed 05/09/2023) * COMPREHENSIVE METABOLIC PANEL(Performed 05/09/2023) * MOISE PANEL COMPREHENSIVE(Performed 05/09/2023) * CULTURE URINE REFLEXED III(Performed 05/09/2023) * VAS RIGHT ARTERIAL DUPLEX LE(Performed 01/18/2023) Performed for Pseudoaneurysm following procedure (HCC) * CBC W/O DIFFERENTIAL(Performed 01/18/2023) * BASIC METABOLIC PANEL (CALCIUM TOTAL)(Performed 01/18/2023) * CBC W/O DIFFERENTIAL(Performed 01/17/2023) * VAS RIGHT ARTERIAL DUPLEX LE(Performed 01/17/2023) Performed for Pseudoaneurysm (HCC), Injury of right femoral vein, initial encounter * BASIC METABOLIC PANEL (CALCIUM TOTAL)(Performed 01/17/2023) * CBC W AUTO DIFFERENTIAL(Performed 01/17/2023) * BLOOD TYPE VERIFICATION(Performed 01/17/2023) * TYPE + SCREEN PANEL(Performed 01/16/2023) * PHOSPHORUS BLOOD(Performed 01/16/2023) * MAGNESIUM BLOOD(Performed 01/16/2023) * PTT SLH(Performed 01/16/2023) * PT-INR SLH(Performed 01/16/2023) * BASIC METABOLIC PANEL (CALCIUM TOTAL)(Performed 01/16/2023) * CBC W AUTO DIFFERENTIAL(Performed 01/16/2023) * ALDOLASE(Performed 10/09/2022) * IMMUNOGLOBULINS IGG/IGM/IGA PANEL(Performed 10/09/2022) * C-REACTIVE PROTEIN(Performed 10/09/2022) * URINALYSIS W/MICROSCOPIC REFLEX TO CULTURE(Performed 10/09/2022) * CBC W AUTO DIFFERENTIAL(Performed 10/09/2022) * ERYTHROCYTE SEDIMENTATION RATE(Performed 10/09/2022) * CK BLOOD(Performed 10/09/2022) * CULTURE URINE REFLEXED III(Performed 10/09/2022) * SCLEROSIS 12 ANTIBODY PNL(Performed 02/09/2022) Performed for Undifferentiated connective tissue disease (HCC) * IMMUNOGLOBULINS IGG/IGM/IGA PANEL(Performed 02/09/2022) Performed for Undifferentiated connective tissue disease (HCC) * COMPLEMENT C4(Performed 02/09/2022) Performed for Undifferentiated connective tissue disease (HCC) * COMPLEMENT C3(Performed 02/09/2022) Performed for Undifferentiated connective tissue disease (HCC) * MOISE PANEL COMPREHENSIVE(Performed 02/09/2022) Performed for Undifferentiated connective tissue disease (HCC) * URINALYSIS W/MICROSCOPIC REFLEX TO CULTURE(Performed 02/09/2022) Performed for Undifferentiated connective tissue disease (HCC) * ERYTHROCYTE SEDIMENTATION RATE(Performed 02/09/2022) Performed for Undifferentiated connective tissue disease (HCC) * C-REACTIVE PROTEIN(Performed 02/09/2022) Performed for Undifferentiated connective tissue disease (HCC) * COMPREHENSIVE METABOLIC PANEL(Performed 02/09/2022) Performed for Undifferentiated connective tissue disease (HCC) * CK BLOOD(Performed 02/09/2022) Performed for Undifferentiated connective tissue disease (HCC) * CBC W AUTO DIFFERENTIAL(Performed 02/09/2022) Performed for Undifferentiated connective tissue disease (HCC) * ALDOLASE(Performed 02/09/2022) Performed for Undifferentiated connective tissue disease (HCC) * CULTURE URINE REFLEXED III(Performed 02/09/2022) * XR SHOULDER LEFT 2VW OR MORE(Performed 01/30/2022) Performed for Pain in joint of left shoulder * XR SHOULDER RIGHT 2VW OR MORE(Performed 01/30/2022) Performed for Pain in joint of left shoulder * XR LUMBAR SPINE 4VW OR MORE(Performed 01/30/2022) Performed for Osteoarthritis, unspecified osteoarthritis type, unspecified site * XR CERVICAL SPINE 4 OR 5VW(Performed 01/30/2022) Performed for Pain in joint of left shoulder * PFT(Performed 12/07/2021) * SCLEROSIS 12 ANTIBODY PNL(Performed 09/15/2021) Performed for Sjogren's syndrome, with unspecified organ involvement (HCC) * MOISE BLOOD TITER(Performed 08/26/2021) * URINALYSIS W/MICROSCOPIC REFLEX TO CULTURE(Performed 08/26/2021) Performed for Sjogren's syndrome, with unspecified organ involvement (HCC) * ERYTHROCYTE SEDIMENTATION RATE(Performed 08/26/2021) Performed for Sjogren's syndrome, with unspecified organ involvement (HCC) * C-REACTIVE PROTEIN(Performed 08/26/2021) Performed for Sjogren's syndrome, with unspecified organ involvement (HCC) * COMPREHENSIVE METABOLIC PANEL(Performed 08/26/2021) Performed for Sjogren's syndrome, with unspecified organ involvement (HCC) * CK BLOOD(Performed 08/26/2021) Performed for Sjogren's syndrome, with unspecified organ involvement (HCC) * ALDOLASE(Performed 08/26/2021) Performed for Sjogren's syndrome, with unspecified organ involvement (HCC) * CBC W AUTO DIFFERENTIAL(Performed 08/26/2021) Performed for Sjogren's syndrome, with unspecified organ involvement (HCC) * MOISE PANEL COMPREHENSIVE(Performed 08/26/2021) Performed for Sjogren's syndrome, with unspecified organ involvement (HCC) * SCLEROSIS 12 ANTIBODY PNL(Performed 08/26/2021) Performed for Sjogren's syndrome, with unspecified organ involvement (HCC) * CULTURE URINE REFLEXED I(Performed 08/26/2021) * LAB RESULTS ORDER(Performed 03/02/2021) * LAB RESULTS ORDER(Performed 03/01/2021) * IMMUNOGLOBULINS IGG/IGM/IGA PANEL(Performed 02/08/2021) Performed for Sjogren's syndrome, with unspecified organ involvement (HCC) * VITAMIN D 25-HYDROXY(Performed 02/08/2021) Performed for Sjogren's syndrome, with unspecified organ involvement (HCC) * URINALYSIS W/MICROSCOPIC REFLEX TO CULTURE(Performed 02/08/2021) Performed for Sjogren's syndrome, with unspecified organ involvement (HCC) * TSH REFLEX FREE T4(Performed 02/08/2021) Performed for Sjogren's syndrome, with unspecified organ involvement (HCC) * ERYTHROCYTE SEDIMENTATION RATE(Performed 02/08/2021) Performed for Sjogren's syndrome, with unspecified organ involvement (HCC) * C-REACTIVE PROTEIN(Performed 02/08/2021) Performed for Sjogren's syndrome, with unspecified organ involvement (HCC) * COMPREHENSIVE METABOLIC PANEL(Performed 02/08/2021) Performed for Sjogren's syndrome, with unspecified organ involvement (HCC) * CK BLOOD(Performed 02/08/2021) Performed for Sjogren's syndrome, with unspecified organ involvement (HCC) * CBC W AUTO DIFFERENTIAL(Performed 02/08/2021) Performed for Sjogren's syndrome, with unspecified organ involvement (HCC) * ALDOLASE(Performed 02/08/2021) Performed for Sjogren's syndrome, with unspecified organ involvement (HCC) * SCLEROSIS 12 ANTIBODY PNL(Performed 02/08/2021) Performed for Sjogren's syndrome, with unspecified organ involvement (HCC) * SS-A/SS-B (SJOGREN'S) ANTIBODY PANEL(Performed 02/08/2021) Performed for Sjogren's syndrome, with unspecified organ involvement (HCC) * CULTURE URINE REFLEXED III(Performed 02/08/2021) * MOISE BLOOD TITER(Performed 04/09/2020) * VITAMIN D 25-HYDROXY(Performed 04/09/2020) Performed for Sjogren's syndrome, with unspecified organ involvement (HCC) * URINALYSIS W/MICROSCOPIC REFLEX TO CULTURE(Performed 04/09/2020) Performed for Sjogren's syndrome, with unspecified organ involvement (HCC) * C-REACTIVE PROTEIN(Performed 04/09/2020) Performed for Sjogren's syndrome, with unspecified organ involvement (HCC) * ERYTHROCYTE SEDIMENTATION RATE(Performed 04/09/2020) Performed for Sjogren's syndrome, with unspecified organ involvement (HCC) * CK BLOOD(Performed 04/09/2020) Performed for Sjogren's syndrome, with unspecified organ involvement (HCC) * COMPREHENSIVE METABOLIC PANEL(Performed 04/09/2020) Performed for Sjogren's syndrome, with unspecified organ involvement (HCC) * CBC W/O DIFFERENTIAL(Performed 04/09/2020) Performed for Sjogren's syndrome, with unspecified organ involvement (HCC) * ALDOLASE(Performed 04/09/2020) Performed for Sjogren's syndrome, with unspecified organ involvement (HCC) * MOISE PANEL COMPREHENSIVE(Performed 04/09/2020) Performed for Sjogren's syndrome, with unspecified organ involvement (HCC) * CULTURE URINE(Performed 04/09/2020) * CULTURE URINE REFLEXED(Performed 04/09/2020) * NASIR+IMMUNOGLOBULINS A/G/M QUANT(Performed 10/12/2019) * URINALYSIS W/MICROSCOPIC REFLEX TO CULTURE(Performed 10/12/2019) Performed for Sjogren's syndrome, with unspecified organ involvement (HCC) * ERYTHROCYTE SEDIMENTATION RATE(Performed 10/12/2019) Performed for Sjogren's syndrome, with unspecified organ involvement (HCC) * C-REACTIVE PROTEIN(Performed 10/12/2019) Performed for Sjogren's syndrome, with unspecified organ involvement (HCC) * CK BLOOD(Performed 10/12/2019) Performed for Sjogren's syndrome, with unspecified organ involvement (HCC) * COMPREHENSIVE METABOLIC PANEL(Performed 10/12/2019) Performed for Sjogren's syndrome, with unspecified organ involvement (HCC) * CBC W AUTO DIFFERENTIAL(Performed 10/12/2019) Performed for Sjogren's syndrome, with unspecified organ involvement (HCC) * ALDOLASE(Performed 10/12/2019) Performed for Sjogren's syndrome, with unspecified organ involvement (HCC) * CULTURE URINE REFLEXED I(Performed 10/12/2019) * URINALYSIS MICROSCOPIC ONLY REFLEXED(Performed 12/06/2018) Performed for Sjogren's syndrome, with unspecified organ involvement (HCC), Therapeutic drug monitoring * URINALYSIS W/MICROSCOPIC REFLEX TO CULTURE(Performed 12/06/2018) Performed for Sjogren's syndrome, with unspecified organ involvement (HCC), Therapeutic drug monitoring * ERYTHROCYTE SEDIMENTATION RATE(Performed 12/06/2018) Performed for Sjogren's syndrome, with unspecified organ involvement (HCC), Therapeutic drug monitoring * COMPREHENSIVE METABOLIC PANEL(Performed 12/06/2018) Performed for Sjogren's syndrome, with unspecified organ involvement (HCC), Therapeutic drug monitoring * CBC W AUTO DIFFERENTIAL(Performed 12/06/2018) Performed for Sjogren's syndrome, with unspecified organ involvement (HCC), Therapeutic drug monitoring * CULTURE URINE COMPREHENSIVE(Performed 12/06/2018) Performed for Sjogren's syndrome, with unspecified organ involvement (HCC), Therapeutic drug monitoring * EYE EXAM(Performed 05/05/2018) * EYE EXAM(Performed 04/28/2018) * URINALYSIS MICROSCOPIC ONLY REFLEXED(Performed 03/12/2018) Performed for Sjogren's syndrome, with unspecified organ involvement (HCC), Therapeutic drug monitoring, Long-term use of Plaquenil * IMMUNOGLOBULINS IGG/IGM/IGA PANEL(Performed 03/12/2018) Performed for Sjogren's syndrome, with unspecified organ involvement (HCC), Therapeutic drug monitoring, Long-term use of Plaquenil * URINALYSIS W/MICROSCOPIC REFLEX TO CULTURE(Performed 03/12/2018) Performed for Sjogren's syndrome, with unspecified organ involvement (HCC), Therapeutic drug monitoring, Long-term use of Plaquenil * ERYTHROCYTE SEDIMENTATION RATE(Performed 03/12/2018) Performed for Sjogren's syndrome, with unspecified organ involvement (HCC), Therapeutic drug monitoring, Long-term use of Plaquenil * C-REACTIVE PROTEIN(Performed 03/12/2018) Performed for Sjogren's syndrome, with unspecified organ involvement (HCC), Therapeutic drug monitoring, Long-term use of Plaquenil * COMPREHENSIVE METABOLIC PANEL(Performed 03/12/2018) Performed for Sjogren's syndrome, with unspecified organ involvement (HCC), Therapeutic drug monitoring, Long-term use of Plaquenil * CBC W AUTO DIFFERENTIAL(Performed 03/12/2018) Performed for Sjogren's syndrome, with unspecified organ involvement (HCC), Therapeutic drug monitoring, Long-term use of Plaquenil * CULTURE URINE COMPREHENSIVE(Performed 03/12/2018) Performed for Sjogren's syndrome, with unspecified organ involvement (HCC), Therapeutic drug monitoring, Long-term use of Plaquenil * CELIAC DISEASE COMPREHENSIVE(Performed 08/01/2017) Performed for Sjogren's syndrome with keratoconjunctivitis sicca (HCC), Chronic diarrhea, High riskmedications (not anticoagulants) long-term use * URINALYSIS MICROSCOPIC ONLY REFLEXED(Performed 08/01/2017) Performed for Sjogren's syndrome with keratoconjunctivitis sicca (HCC), Chronic diarrhea, High riskmedications (not anticoagulants) long-term use * SACCHAROMYCES ANTIBODY (ASCA) IGG/IGA PANEL(Performed 08/01/2017) Performed for Sjogren's syndrome with keratoconjunctivitis sicca (HCC), Chronic diarrhea, High riskmedications (not anticoagulants) long-term use * URINALYSIS W/MICROSCOPIC REFLEX TO CULTURE(Performed 08/01/2017) Performed for Sjogren's syndrome with keratoconjunctivitis sicca (HCC), Chronic diarrhea, High riskmedications (not anticoagulants) long-term use * ERYTHROCYTE SEDIMENTATION RATE(Performed 08/01/2017) Performed for Sjogren's syndrome with keratoconjunctivitis sicca (HCC), Chronic diarrhea, High riskmedications (not anticoagulants) long-term use * C-REACTIVE PROTEIN(Performed 08/01/2017) Performed for Sjogren's syndrome with keratoconjunctivitis sicca (HCC), Chronic diarrhea, High riskmedications (not anticoagulants) long-term use * COMPREHENSIVE METABOLIC PANEL(Performed 08/01/2017) Performed for Sjogren's syndrome with keratoconjunctivitis sicca (HCC), Chronic diarrhea, High riskmedications (not anticoagulants) long-term use * CBC W AUTO DIFFERENTIAL(Performed 08/01/2017) Performed for Sjogren's syndrome with keratoconjunctivitis sicca (HCC), Chronic diarrhea, High riskmedications (not anticoagulants) long-term use * ERYTHROCYTE SEDIMENTATION RATE(Performed 01/26/2017) * URINALYSIS MICROSCOPIC ONLY REFLEXED(Performed 01/26/2017) * C-REACTIVE PROTEIN(Performed 01/26/2017) * COMPREHENSIVE METABOLIC PANEL(Performed 01/26/2017) * CBC W AUTO DIFFERENTIAL(Performed 01/26/2017) * URINALYSIS W/MICROSCOPIC REFLEX TO CULTURE(Performed 01/26/2017) * IGM BLOOD(Performed 01/18/2017) * IGA BLOOD(Performed 01/18/2017) * IGG BLOOD(Performed 01/18/2017) * COMPREHENSIVE METABOLIC PANEL(Performed 08/14/2016) * C-REACTIVE PROTEIN(Performed 08/14/2016) * ERYTHROCYTE SEDIMENTATION RATE(Performed 08/14/2016) * URINALYSIS MICROSCOPIC ONLY REFLEXED(Performed 08/14/2016) * URINALYSIS REFLEX MICROSCOPIC REFLEX CULTURE(Performed 08/14/2016) * COMPREHENSIVE METABOLIC PANEL(Performed 08/14/2016) * CBC W AUTO DIFFERENTIAL(Performed 08/14/2016) * COMPREHENSIVE METABOLIC PANEL(Performed 01/31/2016) * C-REACTIVE PROTEIN(Performed 01/31/2016) * ERYTHROCYTE SEDIMENTATION RATE(Performed 01/31/2016) * URINALYSIS MICROSCOPIC ONLY REFLEXED(Performed 01/31/2016) * URINALYSIS W/MICROSCOPIC NO CULTURE(Performed 01/31/2016) * COMPREHENSIVE METABOLIC PANEL(Performed 01/31/2016) * CBC W AUTO DIFFERENTIAL(Performed 01/31/2016) * CBC W AUTO DIFFERENTIAL(Performed 02/02/2015) * COMPREHENSIVE METABOLIC PANEL(Performed 02/02/2015) * ERYTHROCYTE SEDIMENTATION RATE(Performed 02/02/2015) * C-REACTIVE PROTEIN(Performed 02/02/2015) * URINALYSIS W/MICROSCOPIC NO CULTURE(Performed 02/02/2015) * LDH BLOOD(Performed 02/02/2015) * IMMUNOGLOBULINS IGG/IGM/IGA PANEL(Performed 02/02/2015) * ALDOLASE(Performed 02/02/2015) * CK BLOOD(Performed 02/02/2015) * URINALYSIS W/MICROSCOPIC REFLEX TO CULTURE(Performed 06/11/2014) * ERYTHROCYTE SEDIMENTATION RATE(Performed 06/11/2014) * C-REACTIVE PROTEIN(Performed 06/11/2014) * COMPREHENSIVE METABOLIC PANEL(Performed 06/11/2014) * CBC W AUTO DIFFERENTIAL(Performed 06/11/2014) * CULTURE URINE REFLEXED(Performed 06/11/2014) * DNA ANTIBODY DS CRITHIDIA IFA(Performed 10/14/2013) * LUPUS ANTICOAGULANT PANEL W RFLX(Performed 10/14/2013) * CARDIOLIPIN ANTIBODY IGA(Performed 10/14/2013) * CARDIOLIPIN ANTIBODY IGG(Performed 10/14/2013) * CARDIOLIPIN ANTIBODY IGM(Performed 10/14/2013) * BETA-2 GLYCOPROTEIN 1 ANTIBODY IGG/IGM/IGA PANEL(Performed 10/14/2013) * CYCLIC CITRULLINATED PEPTIDE(CCP) AB IGG(Performed 10/14/2013) * MOISE BLOOD SCREEN W/REFLEX TITER(Performed 10/14/2013) * SCLERODERMA 70 (SCL) ANTIBODY(Performed 10/14/2013) * BEAM DYER OPERATOR ANTIBODY(Performed 10/14/2013) * FATIMA (SM) ANTIBODY SHAYNE(Performed 10/14/2013) * CHROMATIN ANTIBODY(Performed 10/14/2013) * IMMUNOGLOBULINS IGG/IGM/IGA PANEL(Performed 10/14/2013) * SS-A/SS-B (SJOGREN'S) ANTIBODY PANEL(Performed 10/14/2013) * RHEUMATOID FACTOR BLOOD QUANTITATIVE(Performed 10/14/2013) * C-REACTIVE PROTEIN(Performed 10/14/2013) * ALDOLASE(Performed 10/14/2013) * URINALYSIS W/MICROSCOPIC REFLEX TO CULTURE(Performed 10/14/2013) * ERYTHROCYTE SEDIMENTATION RATE(Performed 10/14/2013) * TSH HI LOW REFLEX FREE T4(Performed 10/14/2013) * CK BLOOD(Performed 10/14/2013) * LDH BLOOD(Performed 10/14/2013) * COMPREHENSIVE METABOLIC PANEL(Performed 10/14/2013) * CBC W AUTO DIFFERENTIAL(Performed 10/14/2013) * CULTURE URINE(Performed 10/14/2013) * CULTURE URINE REFLEXED(Performed 10/14/2013) * XR SHOULDER RIGHT 2VW OR MORE(Performed 10/08/2013) * XR SHOULDER LEFT 2VW OR MORE(Performed 10/08/2013) Results * (ABNORMAL) SCLEROSIS 12 ANTIBODY PNL (01/03/2024 11:24 AM CDT) Only the most recent of6 resultswithin the time period is included. SCL-70 <11 <11 [facility] Centromere protein A Antibody <11 <11 [facility] Centromere protein B Antibody <11 <11 [facility] RP11 <11 <11 [facility] RP11 <11 <11 [facility] U1 small nuclear ribonucleoprotein A Antibody <11 <11 [facility] U1 small nuclear ribonucleoprotein C Antibody <11 <11 [facility] U1 small nuclear ribonucleoprotein 70kD Antibody <11 <11 [facility] Fibrillarin <11 <11 [facility] TH/TO <11 <11 [facility] PM/SCL 100 20(H) <11 [facility] PM/SCL 75 <11 <11 [facility] Comment: The [employer] (A[employer]) considers anti-Scl-70 (also known as anti-topoisomerase I), anti-centromere and/or anti-RNA polymerase III antibodies part of the classification criteria for Systemic Sclerosis(SSc) given that the antibodies are present in 30%-60% of patients with SSc. Centromere protein B (CENP B) antibody positivity is found in 64-95% of patients with a limited form of cutaneous systemic sclerosis i.e. CREST syndrome. The addition of centromere protein A (CENP A) antibody to CENP B antibody improves specificity for diagnosis of SSc. Patients presenting with diffuse cutaneous systemic sclerosis (dcSSc) and features of CREST may have both centromere (A & B) antibodies and Scl-70 antibodies. RNA polymerase III antibodies target RNAP III epitopes 11 (RP11) and 155 (RP155). Anti-RP11 antibody occurs in about 10% of scleroderma patients and anti-RP155 antibodies in about 8%. Stwq-E5-uoGBI antibodies are associated with SSc and inflammatory myopathy overlap syndromes. Three major components of U1-snRNP are tested: U1-snRNP BEAM DYER OPERATOR A, U1-snRNP BEAM DYER OPERATOR C, U1-snRNP [id number]. The presence of U1-snRNP antibodies occur in 14% and 26% of Caucasians and Americans, respectively, in [place]. Anti-fibrillarin (anti-U3RNP) antibodies are specific for SSc, but are mutually exclusive from Scl-70, CENP, and RNAP III antibodies. Anti-U3RNP antibodies are detected in 4-10% of SSc patients, and when present are associated with dcSSc and frequently visceral renal and cardiac involvement. Fibrillarin antibodies are found more frequently in -[place] patients and when seen in this population, the antibodies are associated with severe pulmonary disease, pulmonary hypertension, severe small bowel involvement, and a poorer prognosis. Anti-Th/To antibodies are present in 1-13% of SSc patients, and are rarely found in other autoimmune diseases. Anti-Th/To antibodies are primarily associated with localized cutaneous systemic sclerosis (lcSSc). Anti-Th/To antibodies are also associated with pericarditis, interstitial lung disease and a high frequency of intrinsic pulmonary hypertension, and hence, a poorer prognosis. Autoantibodies to PM/Scl, the human exosome complex, are found in 4-11% of patients with SSc. PM/Scl antibodies have also been observed in polymyositis/SSc overlap syndromes and other autoimmune diseases. The majority of anti-PM/Scl reactivity is directed to one of two proteins: PM/Vuz321 and/or PM/Scl75. More information can be found at [email or web address] [email or web address] This test was developed and its analytical performance characteristics have been determined by [employer]. It has not been cleared or approved by FDA. This assay has been validated pursuant to the CLIA regulations and is used for clinical purposes. Test Performed at: [facility] [address] [place], [place] ??[phone] DONALD VILLEGAS MD,PHD,RAUL Blood BLOOD SPECIMEN / Unknown 01/03/2024 11:24 AM CDT 01/03/2024 11:24 AM CDT Heriberto Aburto MD LAB - SEROLOGY ORDER PRAMOD [facility] [address] [place] [address] * COMPREHENSIVE METABOLIC PANEL (01/03/2024 11:24 AM CDT) Only the most recent of19 resultswithin the time period is included. Glucose 90 65 - 99 mg/dL [facility] Comment: ? Fasting reference interval BUN 14 7 - 25 mg/dL [facility] Creatinine 0.90 0.50 - 1.05 mg/dL [facility] eGFR by Cystatin C 72 > OR = 60 mL/min/1. 73m2 [facility] BUN/Creatinine Ratio SEE NOTE: (calc) [facility] Comment: ?? Not Reported: BUN [...] 29 U/L [facility] Comment: Test Performed at: [facility] [address] ??[phone] RAI BETANCOURT MD Blood BLOOD SPECIMEN / Unknown 01/03/2024 11:24 AM CDT 01/03/2024 11:24 AM CDT Heriberto Aburto MD LAB - CHEMISTRY [place] Performing Organization Address [facility] [address] [facility] Co de Phone Number [address] [address] * CULTURE URINE REFLEXED III (12/03/2023 10:06 AM CDT) Only the most recent of5 resultswithin the time period is included. Reflexive Urine Culture See Below [facility] Comment: NO CULTURE INDICATED Test Performed at: [facility] ??[phone] RAI BETANCOURT MD 12/03/2023 10:0 6 AM CDT 12/03/2023 10:07 AM CDT Heriberto Aburto MD LAB - MICROBIOLOGY O RDERABLES Performing Organization Address [facility] [address]/[facility] Co de Phone Number [address] [address] * URINALYSIS W/MICROSCOPIC REFLEX TO CULTURE (12/03/2023 10:06 AM CDT) Only the most recent of14 resultswithin the time period is included. Color UA YELLOW YELLOW [facility] Appearance CLEAR CLEAR [facility] Specific [place] UA 1.009 1.001 - 1.035 [facility] pH UA 6.0 5.0 - 8.0 [facility] Glucose UA NEGATIVE NEGATIVE [facility] Bilirubin UA NEGATIVE NEGATIVE [facility] Ketone UA NEGATIVE NEGATIVE [facility] Blood UA NEGATIVE NEGATIVE [facility] Protein UA NEGATIVE NEGATIVE [facility] Nitrite NEGATIVE NEGATIVE [facility] Leukocyte Esterase NEGATIVE NEGATIVE [facility] WBC UA NONE SEEN < OR = 5 /HPF [facility] RBC UA NONE SEEN < OR = 2 /HPF [facility] Epithelial Cell UA NONE SEEN < OR = 5 /HPF [facility] Bacteria UA NONE SEEN NONE SEEN /HPF [facility] Hyaline Casts NONE SEEN NONE SEEN /LPF [facility] Note See Below [facility] Comment: This urine was analyzed for the presence of WBC, RBC, bacteria, casts, and other formed elements. Only those elements seen were reported. Test Performed at: [facility] ??[phone] RAI BETANCOURT MD 12/03/2023 10:0 6 AM CDT 12/03/2023 10:07 AM CDT Heriberto Aburto MD LAB - URINALYSIS ORD ERABLES Performing Organization Address [facility] [address]/[facility] Co de Phone Number [address] [address] * C-REACTIVE PROTEIN (12/03/2023 10:06 AM CDT) Only the most recent of16 resultswithin the time period is included. [facility] C-Reactive Protein <3.0 <8.0 mg/L [facility] Comment: Test Performed at: [facility] [address] ??[phone] RAI BETANCOURT MD 12/03/2023 10:0 6 AM CDT 12/03/2023 10:07 AM CDT Heriberto Aburto MD LAB - CHEMISTRY ORDE RABREG Performing Organization Address [facility] [address]/[facility] Co de Phone Number [address] [address] * ALDOLASE (12/03/2023 10:06 AM CDT) Only the most recent of10 resultswithin the time period is included. Pathologist [facility] Aldolase 2.9 < OR = 8.1 U/L [facility] Comment: REPORT COMMENT: FASTING:YES Test Performed at: [facility] [address] [place], [place] ??[phone] RAI BETANCOURT MD 12/03/2023 10:0 6 AM CDT 12/03/2023 10:07 AM CDT Heriberto Aburto MD LAB - CHEMISTRY ORDE RABREG Performing Organization Address [facility] [address]/[facility] [place] [address] * ERYTHROCYTE SEDIMENTATION RATE (12/03/2023 10:06 AM CDT) Only the most recent of17 resultswithin the time period is included. [facility] Erythrocyte Sedimentation Rate Westergren 9 < OR = 30 mm/h [facility] Comment: Test Performed at: [facility] [address] ??[phone] RAI BETANCOURT MD 12/03/2023 10:0 6 AM CDT 12/03/2023 10:07 AM CDT Heriberto Aburto MD LAB - HEMATOLOGY ORD ERABLES Performing Organization Address [facility] [address]/[facility] [place] [address] * (ABNORMAL) CBC WITH DIFFERENTIAL (12/03/2023 10:06 AM CDT) Only the most recent of18 resultswithin the time period is included. Pathologist [facility] White Blood Cell Count 4.5 3.8 - 10.8 Thousand/ uL [facility] RBC 3.79(L) 3.80 - 5.10 Million/u L [facility] Hemoglobin 12.2 11.7 - 15.5 g/dL [facility] Hematocrit 37.5 35.0 - 45.0 % [facility] MCV 98.9 80.0 - 100.0 fL [facility] MCH 32.2 27.0 - 33.0 pg [facility] MCHC 32.5 32.0 - 36.0 g/dL [facility] Comment: For adults, a slight decrease in the calculated MCHC value (in the range of 30 to 32 g/dL) is most likely not clinically significant; however, it should be interpreted with caution in correlation with other red cell parameters and the patient's clinical condition. RDW 11.7 11.0 - 15.0 % [facility] Platelet Count 263 140 - 400 Thousand/ uL [facility] MPV 9.9 7.5 - 12.5 fL [facility] Neutrophil Absolute 2421 1500 - 7800 cells/uL [facility] Absolute Bands [facility] Metamyelocytes Absolute [facility] Myelocytes Absolute [facility] Absolute Prolymphocytes [facility] Lymphocytes Absolute 1467 850 - 3900 cells/uL [facility] Absolute Monocytes 383 200 - 950 cells/uL [facility] Eosinophils Absolute 180 15 - 500 cells/uL [facility] Basophils Absolute 50 0 - 200 cells/uL [facility] Absolute Blasts [facility] nRBC Absolute [facility] Granulocytes % 53.8 % [facility] Band Neutrophil [facility] Metamyelocytes [facility] Myelocytes [facility] Promyelocytes [facility] Lymphocytes % 32.6 % [facility] Lymphocyte Reactive [facility] Monocytes % 8.5 % [facility] Eosinophils % 4.0 % [facility] Basophils % 1.1 % [facility] Comment: Test Performed at: [facility] [address] [place] ??[phone] RAI BETANCOURT MD Blasts [facility] nRBC [facility] Comments [facility] Comment: Test Performed at: [facility] [address] [place] [address] ??[phone] RAI BETANCOURT MD 12/03/2023 10:0 6 AM CDT 12/03/2023 10:07 AM CDT Heriberto Aburto MD LAB - HEMATOLOGY ORD [facility] Organization Address City/State/ZIP Co de Phone Number [facility] [address] [place] [address] * CK BLOOD (12/03/2023 10:06 AM CDT) Only the most recent of10 resultswithin the time period is included. CK 42 29 - 143 U/L [facility] Comment: Test Performed at: [facility] [address] [place], [place] ??[phone] RAI BETANCOURT MD 12/03/2023 10:0 6 AM CDT 12/03/2023 10:07 AM CDT Heriberto Aburto MD LAB - CHEMISTRY ORDE [place] [facility] [address] [place] [address] * VAS Bilateral Venous Duplex Le (10/31/2023 11:34 AM CDT) Anatomical Region Laterality Modality Lower Extremity Intravascular Ul trasound 10/31/2023 11:0 9 AM CDT Narrative Procedure Note Sigifredo Sánchez MD - 10/31/2023 Lily Murphy MD VASCULAR LAB ORDERAB LES * CARDIAC RHYTHM STRIP ORDER (10/18/2023 6:34 PM CDT) Narrative 10/18/2023 6:34 PM CDT Ordered by an unspecified provider. Scanned Document CARDIAC SERVICES ORD ERABLES * IMAGING RADIOLOGY XRAY RESULTS ORDER (10/18/2023 6:03 PM CDT) Anatomical Region Laterality Modality Other Narrative 10/18/2023 6:03 PM CDT Ordered by an unspecified provider. Scanned Document IMAGING * ETT LINE PERFORMABLE (10/16/2023 12:34 PM CDT) Narrative Yoselin Pop APRN-CRNA - 10/16/2023 12:34 PM CDT Donn, YULI Rob ? 10/16/2023 12:35 PM Endotracheal Tube Placement: ? Patient Location: OR. Intubation Event Date/Time: ??10/16/2023 12:21 PM Procedure: intubation ([id number]) Procedure Section: ?? Sedation: under general anesthesia. Indications for Airway Management: ??anesthesia Induction: standard IV Patient Position: ??sniffing Mask Ventilation: easy. Blade Type: Ru Blade Size: 3 Laryngoscopy View: grade 2 (partial cords) Intubation Adjuncts: stylet Tube: endotracheal tube Placement: oral Tube type: cuff - inflated Tube Size (MM): 7 Depth of Insertion (CM): 21 Measured From: teeth Cuff volume (mL): ??7 Number of Attempts: 1. Placement Verified By: direct visualization, chest auscultation and CO2 monitor Tube secured with: ??adhesive tape. Dentition unchanged? ??Yes Difficult Airway? ??No. Procedure Start Time: 10/16/2023 12:21 PM. Staff Section ? Anesthesia Provider: Gokul Herrera MD ? Provider #1: Donn Yoselin BerumenQUIN-SARAH, Performed the procedure. Gokul Herrera MD GENERAL ANESTHESIA ORDERABLES * Peripheral Nerve Block (10/16/2023 12:11 PM CDT) Narrative Gokul Herrera MD - 10/16/2023 12:11 PM CDT Gokul Herrera MD ? 10/16/2023 12:12 PM Peripheral ??Nerve Block ?? Procedure: Peripheral Nerve Block Patient Location: ??Pre-op Preprocedure Section: ?? Indications: at surgeon's request and postop pain management. Pre-anesthetic Checklist: Patient identified, IV Checked, Site examined and clear, Risks and benefits discussed, Surgical consent verified, Monitors and equipment, Time-out performed, Informed consent obtained, Pre-op evaluation done, Questions answered/anesthesia questions answered, Allergies reviewed and Removal hand/wrist jewelry Monitors: BP, Pulse Ox and EKG. Patient Condition: ??sedated, meaningful contact maintained throughout procedure Patient Position: supine Patient Sedated? ??Yes ? Sedation Type: ??mild ? Sedation Agents: ??midazolam (VERSED) injection - Intravenous 2 mg - 10/16/2023 12:05:00 PM Procedure Section ?? Laterality: right Block Performed: ??Interscalene Prep: ??Chloraprep Strerile Field: gloves, mask and hat/cap Skin localized with: lidocaine (XYLOCAINE) 1 % injection - Infiltration 1 mL - 10/16/2023 12:05:00 PM Needle Type: ??Echogenic insultaed Needle Gauge: ??21 Needle Length: ??80 mm Needle Depth: ??3 cm Catheter?No Ultrasound Guided? ?? Yes ? Technique: ??in plane ? Visualization: ??Preliminary scan performed, Important anatomical structures identified, Target identified, Needle tip visualized throughout the procedure, No intraneural or intravascular puncture occurred, Hydrodissection utilized, Local visualized surrounding nerve on ultrasound and Ultrasound image in chart Injection was made incrementally with constant monitoring and aspirations every 5 mL's Block Agents or Additives used? Yes Block agents used: bupivacaine PF (MARCAINE PF) 0.5 % injection - Infiltration 10 mL - 10/16/2023 12:08:00 PM bupivacaine liposome (EXPAREL) 1.3 % injection - Infiltration 10 mL - 10/16/2023 12:08:00 PM Procedure Tolerance: tolerated well Assessment: completed Procedure Start Time: 10/16/2023 12:05 PM. Procedure End Time: 10/16/2023 12:08 PM. Procedure Total Time: 3 ??minutes. Staff Section ? Anesthesia Provider: Gokul Herrera MD, Performed the procedure Gokul Herrera MD GENERAL ANESTHESIA ORDERABLES * XR Knee Left 4Vw or More (10/03/2023 2:31 PM CDT) Anatomical Region Laterality Modality Lower Extremity Radiographic Rosenda ging 10/04/2023 11:4 1 AM CDT Impressions 10/04/2023 11:41 AM CDT IMPRESSION: Mild osteoarthritis. > Interpreting Provider: Kirill Aguilar MD on 10/04/2023 11:41 AM Narrative 10/04/2023 11:41 AM CDT PROCEDURE: ??XR KNEE LEFT 4VW OR MORE DATE/TIME OF EXAM: ??10/03/2023 2:31 PM CLINICAL INFORMATION: None relevant/not provided if blank. Indication: M25.561: Pain in both knees, unspecified chronicity M25.562: Pain in both knees, unspecified chronicity Additional History: COMPARISON: None. FINDINGS: No fracture or dislocation is seen. There is mild patellofemoral compartment joint space narrowing laterally. Small to moderate osteophytes are visible, greatest in the patellofemoral compartment. There is faint chondrocalcinosis. No erosions are seen. No effusion. Procedure Note Kirill Aguilar MD - 10/04/2023 PROCEDURE: XR KNEE LEFT 4VW OR MORE DATE/TIME OF EXAM: 10/03/2023 2:31 PM CLINICAL INFORMATION: None relevant/not provided if blank. Indication: M25.561: Pain in both knees, unspecified chronicity M25.562: Pain in both knees, unspecified chronicity Additional History: COMPARISON: None. FINDINGS: No fracture or dislocation is seen. There is mild patellofemoral compartment joint space narrowing laterally. Small to moderateosteophytes are visible, greatest in the patellofemoral compartment. There is faint chondrocalcinosis. No erosions are seen. No effusion. IMPRESSION: Mild osteoarthritis. 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 > Interpreting Provider: Kirill Aguilar MD on 10/04/2023 12:19 PM Narrative 10/04/2023 12:19 PM CDT PROCEDURE: ??XR KNEE RIGHT 4VW OR MORE DATE/TIME OF EXAM: ??10/03/2023 2:31 PM CLINICAL INFORMATION: None relevant/not provided if blank. Indication: M25.561: Pain in both knees, unspecified chronicity M25.562: Pain in both knees, unspecified chronicity Additional History: COMPARISON: None. FINDINGS: A staple is present in the proximal tibia. No fracture or dislocation is present. There is severe patellofemoral compartment joint space narrowing medially with subchondral sclerosis and mild articular surface irregularity. There is mild narrowing of the medial compartment. There is tricompartmental osteophyte formation. Chondrocalcinosis is visible. Procedure Note Kirill Aguilar MD - 10/04/2023 PROCEDURE: XR KNEE RIGHT 4VW OR MORE DATE/TIME OF EXAM: 10/03/2023 2:31 PM CLINICAL INFORMATION: None relevant/not provided if blank. Indication: M25.561: Pain in both knees, unspecified chronicity M25.562: Pain in both knees, unspecified chronicity Additional History: COMPARISON: None. FINDINGS: A staple is present in the proximal tibia. No fracture or dislocation is present. There is severe patellofemoral compartment joint spacenarrowing medially with subchondral sclerosis and mild articular surface irregularity. There is mild narrowing of the medial compartment. Thereis tricompartmental osteophyte formation. Chondrocalcinosis is visible. 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 > Interpreting Provider: Kirill Aguilar MD on 10/04/2023 12:19 PM Aarti Cheatham PA-C DIAGNOSTIC IMAGING ORDERABLES * XR SHOULDER RIGHT 2VW OR MORE (06/11/2023 1:34 PM CDT) Only the most recent of3 resultswithin the time period is included. Anatomical Region Laterality Modality Upper Extremity Radiographic Rosenda ging 06/11/2023 1:35 PM CDT Impressions 06/11/2023 1:40 PM CDT IMPRESSION: 1.No acute fracture or dislocation identified. 2.Mild bilateral acromioclavicular osteoarthritis, left greater than right. Report dictated by José Hickey MD (logistics vice president). I, Kirill Aguilar MD have personally reviewed and interpreted this examination/study. > Interpreting Provider: Kirill Aguilar MD on 06/11/2023 1:40 PM Narrative 06/11/2023 1:40 PM CDT PROCEDURE: ??XR SHOULDER RIGHT 2VW OR MORE, XR SHOULDER LEFT 2VW OR MORE, DATE/TIME OF EXAM: ??06/11/2023 1:34 PM, LOCATION ??[facility] INDICATION: M35.00: Sjogren's syndrome, with unspecified organ involvement ([facility]) M25.512: Pain in joint of left shoulder ORDERING PROVIDER REASON FOR EXAM: LOM compare to 2021. (accession [id number]), LOM and pain. Compae to 2021. (accession [id number]) COMPARISON: Right and left Shoulder x-rays 01/30/2022. FINDINGS: Right shoulder: The osseous structures are intact without acute fracture. The glenohumeral and acromioclavicular joints are in anatomic alignment. Mild acromioclavicular joint space narrowing. Bone density and texture are normal. ?? Left shoulder: The osseous structures are intact without acute fracture. The glenohumeral and acromioclavicular joints are in anatomic alignment. Mild degenerative changes of the acromioclavicular joint with joint space narrowing and osteophytes. Bone density and texture are normal. Procedure Note Kirill Aguilar MD - 06/11/2023 PROCEDURE: XR SHOULDER RIGHT 2VW OR MORE, XR SHOULDER LEFT 2VW OR MORE, DATE/TIME OF EXAM: 06/11/2023 1:34 PM, LOCATION [facility] INDICATION: M35.00: Sjogren's syndrome, with unspecified organinvolvement (HCC) M25.512: Pain in joint of left shoulder ORDERING PROVIDER REASON FOR EXAM: LOM compare to 2021. (accession [id number]), LOM and pain. Compae to 2021. (accession [id number]) COMPARISON: Right and left Shoulder x-rays 01/30/2022. FINDINGS: Right shoulder: The osseous structures are intact without acute fracture. Theglenohumeral and acromioclavicular joints are in anatomic alignment. Mild acromioclavicular joint space narrowing. Bone density and texture are normal. Left shoulder: The osseous structures are intact without acute fracture. Theglenohumeral and acromioclavicular joints are in anatomic alignment. Milddegenerative changes of the acromioclavicular joint with joint space narrowing and osteophytes. Bone density and texture are normal. IMPRESSION: 1.No acute fracture or dislocation identified. 2.Mild bilateral acromioclavicular osteoarthritis, left greater thanright. Report dictated by José Hickey MD (logistics vice president). I, Kirill Aguilar MD have personally reviewed and interpreted this examination/study. > Interpreting Provider: Kirill Aguilar MD on 06/11/2023 1:40 PM Heriberto Aburto MD DIAGNOSTIC IMAGING O RDERABLES * XR SHOULDER LEFT 2VW OR MORE (06/11/2023 1:34 PM CDT) Only the most recent of3 resultswithin the time period is included. Anatomical Region Laterality Modality Upper Extremity Radiographic Rosenda ging 06/11/2023 1:35 PM CDT Impressions 06/11/2023 1:40 PM CDT IMPRESSION: 1.No acute fracture or dislocation identified. 2.Mild bilateral acromioclavicular osteoarthritis, left greater than right. Report dictated by José Hickey MD (logistics vice president). I, Kirill Aguilar MD have personally reviewed and interpreted this examination/study. > Interpreting Provider: Kirill Aguilar MD on 06/11/2023 1:40 PM Narrative 06/11/2023 1:40 PM CDT PROCEDURE: ??XR SHOULDER RIGHT 2VW OR MORE, XR SHOULDER LEFT 2VW OR MORE, DATE/TIME OF EXAM: ??06/11/2023 1:34 PM, LOCATION ??[facility] INDICATION: M35.00: Sjogren's syndrome, with unspecified organ involvement ([facility]) M25.512: Pain in joint of left shoulder ORDERING PROVIDER REASON FOR EXAM: LOM compare to 2021. (accession [id number]), LOM and pain. Compae to 2021. (accession [id number]) COMPARISON: Right and left Shoulder x-rays 01/30/2022. FINDINGS: Right shoulder: The osseous structures are intact without acute fracture. The glenohumeral and acromioclavicular joints are in anatomic alignment. Mild acromioclavicular joint space narrowing. Bone density and texture are normal. ?? Left shoulder: The osseous structures are intact without acute fracture. The glenohumeral and acromioclavicular joints are in anatomic alignment. Mild degenerative changes of the acromioclavicular joint with joint space narrowing and osteophytes. Bone density and texture are normal. Procedure Note Kirill Aguilar MD - 06/11/2023 PROCEDURE: XR SHOULDER RIGHT 2VW OR MORE, XR SHOULDER LEFT 2VW OR MORE, DATE/TIME OF EXAM: 06/11/2023 1:34 PM, LOCATION [facility] INDICATION: M35.00: Sjogren's syndrome, with unspecified organinvolvement (HCC) M25.512: Pain in joint of left shoulder ORDERING PROVIDER REASON FOR EXAM: LOM compare to 2021. (accession [id number]), LOM and pain. Compae to 2021. (accession [id number]) COMPARISON: Right and left Shoulder x-rays 01/30/2022. FINDINGS: Right shoulder: The osseous structures are intact without acute fracture. Theglenohumeral and acromioclavicular joints are in anatomic alignment. Mild acromioclavicular joint space narrowing. Bone density and texture are normal. Left shoulder: The osseous structures are intact without acute fracture. Theglenohumeral and acromioclavicular joints are in anatomic alignment. Milddegenerative changes of the acromioclavicular joint with joint space narrowing and osteophytes. Bone density and texture are normal. IMPRESSION: 1.No acute fracture or dislocation identified. 2.Mild bilateral acromioclavicular osteoarthritis, left greater thanright. Report dictated by José Hickey MD (logistics vice president). Kirill Arredondo MD have personally reviewed and interpreted this examination/study. > Interpreting Provider: Kirill Aguilar MD on 06/11/2023 1:40 PM Heriberto Aburto MD DIAGNOSTIC IMAGING O RDERABLES * XR CERVICAL SPINE 4 OR 5VW (06/11/2023 1:34 PM CDT) Only the most recent of2 resultswithin the time period is included. Anatomical Region Laterality Modality Spine Radiographic Rosenda ging 06/11/2023 3:42 PM CDT Impressions 06/11/2023 3:50 PM CDT IMPRESSION: Unchanged degenerative disc disease of the cervical spine as described above. Report dictated by Dominick Hurtado DO (logistics vice president). Leonard Arredondo MD have personally reviewed and interpreted this examination/study. > Interpreting Provider: Leonard Bedoya MD on 06/11/2023 3:50 PM Narrative 06/11/2023 3:50 PM CDT PROCEDURE: ??XR CERVICAL SPINE 4 OR 5VW, DATE/TIME OF EXAM: ??06/11/2023 1:34 PM, LOCATION ??[facility] INDICATION: M35.00: Sjogren's syndrome, with unspecified organ involvement (HCC) M25.512: Pain in joint of left shoulder ADDITIONAL CLINICAL INFORMATION: Ordering Provider Reason For Exam: ??LOM and pain with radiation down arms Compare to 2021. COMPARISON: Cervical spine x-ray 01/30/2022 FINDINGS: Minimal anterolisthesis at C3-4 and C4-5 which improves with extension. Minimal retrolisthesis at C5-6 which improves with flexion. No acute compression deformity is identified. Unchanged moderate decrease in disc space at C5-C6. Neuroforaminal stenosis is noted at C5-C6, unchanged. Mild multilevel osteophytosis.. The dens is intact. The predental interval and prevertebral soft tissues are normal. Bone density and texture are normal. Procedure Note Leonard Bedoya MD - 06/11/2023 PROCEDURE: XR CERVICAL SPINE 4 OR 5VW, DATE/TIME OF EXAM: 41:34 PM, LOCATION [facility] INDICATION: M35.00: Sjogren's syndrome, with unspecified organ involvement (HCC) M25.512: Pain in joint of left shoulder ADDITIONAL CLINICAL INFORMATION: Ordering Provider Reason For Exam: LOM and pain with radiation downarms Compare to 2021. COMPARISON: Cervical spine x-ray 01/30/2022 FINDINGS: Minimal anterolisthesis at C3-4 and C4-5 which improves with extension. Minimal retrolisthesis at C5-6 which improves with flexion. No acute compression deformity is identified. Unchanged moderate decrease in disc space at C5-C6. Neuroforaminal stenosis is noted at C5-C6, unchanged.Mild multilevel osteophytosis.. The dens is intact. The predental intervaland prevertebral soft tissues are normal. Bone density and texture arenormal. IMPRESSION: Unchanged degenerative disc disease of the cervical spine as described above. Report dictated by Dominick Hurtado DO (logistics vice president). I, Leonard Bedoya MD have personally reviewed and interpreted this examination/study. > Interpreting Provider: Leonard Bedoya MD on 06/11/2023 3:50 PM Heriberto Aburto MD DIAGNOSTIC IMAGING O RDERABLES * (ABNORMAL) MOISE PANEL COMPREHENSIVE (05/09/2023 11:20 AM DIRECT MAIL MANAGER) Only the most recent of4 resultswithin the time period is included. MOISE Screen NEGATIVE NEGATIVE [facility] Comment: MOISE IFA is a first line screen for detecting the presence of up to approximately 150 autoantibodies in various autoimmune diseases. A negative MOISE IFA result suggests an MOISE-associated autoimmune disease is not present at this time, but is not definitive. If there is high clinical suspicion for Sjogren's syndrome, testing for anti-SS-A/Ro antibody should be considered. Anti-Mary-1 antibody should be considered for clinically suspected inflammatory myopathies. AC-0: Negative International Consensus on MOISE Patterns (https://doi.org/10.1515/bgfe-3079-4362) For additional information, please refer to http://education.[employer]/faq/ZTV309 (This link is being provided for informational/ educational purposes only.) ?? Test Performed at: [facility] [address] [place] [address] ??[phone] RAI BETANCOURT MD dsDNA Antibody 1 IU/mL [facility] Comment: ? IU/mL ? Interpretation ? < or = 4 ?Negative ? 5-9 ? Indeterminate ? > or = 10 ?? Positive SCL-70 Antibody <1.0 NEG <1.0 NEG AI [facility] SM Antibody <1.0 NEG <1.0 NEG AI [facility] SM/BEAM DYER OPERATOR Antibody <1.0 NEG <1.0 NEG AI [facility] Sjogren's Antibodies (SSA) >8.0 POS(A) <1.0 NEG AI [facility] Sjogren's Antibodies (SSB) <1.0 NEG <1.0 NEG AI [facility] Comment: Test Performed at: [facility] ??[phone] RAI BETANCOURT MD 05/09/2023 11:2 0 AM DIRECT MAIL MANAGER 05/09/2023 11:21 AM DIRECT MAIL MANAGER Heriberto Aburto MD LAB - SEROLOGY ORDER PRAMOD Performing Organization Address [facility] Co de Phone Number [facility] [phone] [place] [address] * COMPLEMENT C4 (05/09/2023 11:20 AM DIRECT MAIL MANAGER) Only the most recent of2 resultswithin the time period is included. Complement C4 30 15 - 57 mg/dL [facility] Comment: Test Performed at: [facility] [address] ??[phone] RAI BETANCOURT MD 05/09/2023 11:2 0 AM DIRECT MAIL MANAGER 05/09/2023 11:21 AM DIRECT MAIL MANAGER Heriberto Aburto MD LAB - SEROLOGY ORDER PRAMOD Performing Organization Address [facility] Co de Phone Number [facility] [phone] [place] [address] * IMMUNOGLOBULINS IGG/IGM/IGA PANEL (05/09/2023 11:20 AM DIRECT MAIL MANAGER) Only the most recent of7 resultswithin the time period is included. IgA 255 70 - 320 mg/dL [facility] IgG 901 600 - 1540 mg/dL [facility] IgM 88 50 - 300 mg/dL [facility] Comment: REPORT COMMENT: FASTING:YES Test Performed at: [facility] [address] ??[phone] RAI BETANCOURT MD 05/09/2023 11:2 0 AM DIRECT MAIL MANAGER 05/09/2023 11:21 AM DIRECT MAIL MANAGER Heriberto Aburto MD LAB - CHEMISTRY [place] Performing Organization Address [facility] Co de Phone Number [facility] [address] [place] [address] * COMPLEMENT C3 (05/09/2023 11:20 AM DIRECT MAIL MANAGER) Only the most recent of2 resultswithin the time period is included. Complement C3 136 83 - 193 mg/dL [facility] Comment: Test Performed at: [facility] [address] ??[phone] RAI BETANCOURT MD 05/09/2023 11:2 0 AM DIRECT MAIL MANAGER 05/09/2023 11:21 AM DIRECT MAIL MANAGER Heriberto Aburto MD LAB - CHEMISTRY [place] Performing Organization Address [facility] Co de Phone Number [facility] [address] [place] [address] * VAS RIGHT ARTERIAL DUPLEX LE (01/18/2023 8:13 AM DIRECT MAIL MANAGER) Only the most recent of2 resultswithin the time period is included. Anatomical Region Laterality Modality Lower Extremity Intravascular Ul trasound 01/18/2023 7:47 AM DIRECT MAIL MANAGER Narrative Procedure Note Karthik Dean MD - 01/21/2023 Ozzy Interiano MD VASCULAR LAB ORDERAB LES * (ABNORMAL) CBC W/O DIFFERENTIAL (01/18/2023 5:25 AM DIRECT MAIL MANAGER) Only the most recent of3 resultswithin the time period is included. WBC 4.3 3.5 - 10.5 10? 3 /uL 01/18/2023 6:00 AM DIRECT MAIL MANAGER [facility] RBC 2.96(L) 3.80 - 5.20 10? 6 /uL 01/18/2023 6:00 AM DIRECT MAIL MANAGER [facility] Hemoglobin 9.7(L) 12.0 - 15.6 g/dL 01/18/2023 6:00 AM [facility] Hematocrit 27.9(L) 35.0 - 45.0 % 01/18/2023 6:00 AM [facility] MCV 94.3 80.7 - 98.3 fL 01/18/2023 6:00 AM [facility] MCH 32.8 26.7 - 34.0 pg 01/18/2023 6:00 AM [facility] MCHC 34.8 30.8 - 35.9 g/dL 01/18/2023 6:00 AM [facility] RDW-SD 42.4 36.0 - 50.0 fL 01/18/2023 6:00 AM [facility] RDW-CV 12.3 11.2 - 14.8 % 01/18/2023 6:00 AM [facility] Platelet Count 198 150 - 400 10? 3 /uL 01/18/2023 6:00 AM [facility] MPV 9.9 9.4 - 12.9 fL 01/18/2023 6:00 AM [facility] nRBC Absolute 0.00 0 10? 3 /uL 01/18/2023 6:00 AM [facility] nRBC Auto 0.0 0 /100 WBC 01/18/2023 6:00 AM [facility] Blood BLOOD SPECIMEN / Unknown Venipuncture / Unknown 01/18/2023 5:25 AM DIRECT MAIL MANAGER 01/18/2023 5:32 AM [facility] Ozzy Interiano MD LAB - HEMATOLOGY ORD ERABLES Performing Organization Address City/State/[facility] Co de Phone Number [facility] [address] [place] [address], [facility] [phone] * (ABNORMAL) BASIC METABOLIC PANEL (CALCIUM TOTAL) (01/18/2023 5:25 AM [facility]) Only the most recent of3 resultswithin the time period is included. BUN 13 7 - 26 mg/dL 01/18/2023 6:07 AM [facility] Creatinine 0.90 0.56 - 0.96 mg/dL 01/18/2023 6:07 AM [facility] Sodium 136 136 - 145 mmol/L 01/18/2023 6:07 AM [facility] Potassium 4.0 3.5 - 4.5 mmol/L 01/18/2023 6:07 AM [facility] Chloride 106 98 - 107 mmol/L 01/18/2023 6:07 AM [facility] CO2 22 22 - 29 mmol/L 01/18/2023 6:07 AM [facility] Glucose 100 70 - 115 mg/dL 01/18/2023 6:07 AM [facility] Calcium 8.9 8.4 - 10.2 mg/dL 01/18/2023 6:07 AM [facility] Anion Gap 8 6 - 16 01/18/2023 6:07 AM [facility] BUN/Creatinine Ratio 14 7 - 23 01/18/2023 6:07 AM [facility] Osmolality Calculated 282 275 - 295 mOsm/kg 01/18/2023 6:07 AM [facility] eGFR by CKD-EPI 72(L) >=90 mL/min/1.7 3 m2 01/18/2023 6:07 AM [facility] Blood BLOOD SPECIMEN / Unknown Venipuncture / Unknown 01/18/2023 5:25 AM DIRECT MAIL MANAGER 01/18/2023 5:32 AM DIRECT MAIL MANAGER Sandip Banks MD LAB - CHEMISTR Y ORDERABLES [address] [address], [facility] [phone] * BLOOD TYPE VERIFICATION (01/17/2023 5:00 AM DIRECT MAIL MANAGER) ABO Rh A POS 01/17/2023 5:4 2 AM [facility] Blood Bank BLOOD SPECIMEN / Unknown Venipuncture / Unknown 01/17/2023 5:00 AM DIRECT MAIL MANAGER 01/17/2023 5:09 AM DIRECT MAIL MANAGER Elisabeth Gray MD LAB - BLOOD BANK ORD ERABLES [facility] [address] [place] [address], [place] [phone] * PTT [facility] (01/16/2023 9:32 PM DIRECT MAIL MANAGER) APTT 31.5 23.0 - 38.4 Seconds 01/16/2023 10:02 PM [facility] Comment:Suggested therapeuti c range for full dose I.V. unfractionated heparin therapy for venous thromboembolism is 71 to 109 seconds. Blood BLOOD SPECIMEN / Unknown Venipuncture / Unknown 01/16/2023 9:32 PM DIRECT MAIL MANAGER 01/16/2023 9:38 PM [facility] Gokul Moreno MD LAB - COAGULATION ORDERABLES [address] [address], [facility] [phone] * (ABNORMAL) PT-INR [facility] (01/16/2023 9:32 PM DIRECT MAIL MANAGER) Pathologist [facility] PT 16.6(H) 12.1 - 14.8 Seconds 01/16/2023 10:02 PM [facility] INR 1.4 See Comment 01/16/2023 10:02 PM [facility] Comment:The suggested therap eutic range for standard coumadin (warfarin) therapy is an INR of 2.0-3.0. For high-risk patients (Mechanical Mitral Valve Prosthesis, etc.), the suggested prophylactic therapeutic range is an INR of 2.5-3.5. Blood BLOOD SPECIMEN / Unknown Venipuncture / Unknown 01/16/2023 9:32 PM DIRECT MAIL MANAGER 01/16/2023 9:38 PM [facility] Gokul Moreno MD LAB - COAGULATION ORDERABLES [facility] [address] [place] [address], [place] [phone] * TYPE + SCREEN PANEL (01/16/2023 9:32 PM DIRECT MAIL MANAGER) Antibody Screen NEG 10:28 PM [facility] ABO Rh A POS 01/16/2023 10:28 PM [facility] Blood Bank BLOOD SPECIMEN / Unknown Venipuncture / Unknown 01/16/2023 9:32 PM DIRECT MAIL MANAGER 01/16/2023 9:43 PM DIRECT MAIL MANAGER Gokul Moreno MD LAB - BLOOD BANK ORDERABLES Performing Organization Address City/[facility] [address]/ZIP Co de Phone Number [facility] [place] [address], [facility] [phone] * PHOSPHORUS BLOOD (01/16/2023 9:32 PM DIRECT MAIL MANAGER) Phosphorus 3.1 2.9 - 5.1 mg/dL 01/16/2023 10:09 PM DIRECT MAIL MANAGER [facility] Blood BLOOD SPECIMEN / Unknown Venipuncture / Unknown 01/16/2023 9:32 PM DIRECT MAIL MANAGER 01/16/2023 9:38 PM DIRECT MAIL MANAGER Gokul Moreno MD LAB - CHEMISTRY O RDERABLES Performing Organization Address City/[facility] [address]/ZIP Co de Phone Number [address] [address], [place] [phone] * MAGNESIUM BLOOD (01/16/2023 9:32 PM DIRECT MAIL MANAGER) Magnesium 1.7 1.6 - 2.6 mg/dL 01/16/2023 10:09 PM DIRECT MAIL MANAGER [facility] Blood BLOOD SPECIMEN / Unknown Venipuncture / Unknown 01/16/2023 9:32 PM DIRECT MAIL MANAGER 01/16/2023 9:38 PM DIRECT MAIL MANAGER Gokul Moreno MD LAB - CHEMISTRY O RDERABLES Performing Organization Address City/[facility] [address]/ZIP Co de Phone Number [address] [address], [place] [phone] * XR LUMBAR SPINE 4VW OR MORE (01/30/2022 4:50 PM DIRECT MAIL MANAGER) Anatomical Region Laterality Modality Spine Radiographic Rosenda ging 01/31/2022 8:58 AM DIRECT MAIL MANAGER Impressions 01/31/2022 12:02 PM DIRECT MAIL MANAGER IMPRESSION: *No acute fracture or malalignment of cervical spine is identified. *Degenerative joint disease of cervical spine, more prominent at C5-C6 level, as described above. 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 There is suspected left pars defect at L5-S1 level. Additional imaging with oblique views is recommended. Report dictated by José Hickey MD (logistics vice president). > Dictated by José Hickey (Occupational Therapy Director) 01/31/2022 9:16 AM I, George Rangel MD have personally reviewed and interpreted this examination/study. > Interpreting Provider: George Rangel MD on 01/31/2022 12:02 PM Narrative 01/31/2022 12:02 PM DIRECT MAIL MANAGER PROCEDURE: ??XR CERVICAL SPINE 4 OR 5VW, XR LUMBAR SPINE 4VW OR MORE, DATE/TIME OF EXAM: ??01/30/2022 4:50 PM, LOCATION ??[facility] INDICATION: M25.512: Pain in joint of left shoulder ADDITIONAL CLINICAL INFORMATION: Ordering Provider Reason For Exam: COMPARISON: None. FINDINGS: Cervical Spine: The vertebral bodies are normally aligned. No acute fracture or compression deformity is identified. There is moderate decreased disc space at C5-C6 level, with foraminal narrowing due to posterior spurs. The other intervertebral disc spaces are maintained. The dens is intact. The predental interval and prevertebral soft tissues are normal. Bone density and texture are normal. Lumbar Spine: There is rotatory levoscoliosis of lumbar spine. The vertebral alignment is otherwise unremarkable with neutral, flexion and extension positioning. There is suspected parts defect at left L5-S1 level. No fracture or dislocation is otherwise identified. There is moderate decreased disc space at L4-L5 level. The other disc spaces are preserved. There is facet joint narrowing, sclerosis at L4-L5 and L5-S1 levels. The sacroiliac joints are normal. No soft tissue abnormality is seen. Procedure Note George Rangel MD - 01/31/2022 PROCEDURE: XR CERVICAL SPINE 4 OR 5VW, XR LUMBAR SPINE 4VW OR MORE, DATE/TIME OF EXAM: 01/30/2022 4:50 PM, LOCATION [facility] INDICATION: M25.512: Pain in joint of left shoulder ADDITIONAL CLINICAL INFORMATION: Ordering Provider Reason For Exam: COMPARISON: None. FINDINGS: Cervical Spine: The vertebral bodies are normally aligned. No acute fracture orcompression deformity is identified. There is moderate decreased disc space at C5-C6 level, with foraminal narrowing due to posterior spurs. The other intervertebral disc spaces are maintained. The dens is intact. The predental interval and prevertebral soft tissues are normal. Bonedensity and texture are normal. Lumbar Spine: There is rotatory levoscoliosis of lumbar spine. The vertebral alignmentis otherwise unremarkable with neutral, flexion and extension positioning. There is suspected parts defect at left L5-S1 level. No fracture or dislocation is otherwise identified. There is moderate decreased discspace at L4-L5 level. The other disc spaces are preserved. There is facetjoint narrowing, sclerosis at L4-L5 and L5-S1 levels. The sacroiliac jointsare normal. No soft tissue abnormality is seen. IMPRESSION: *No acute fracture or malalignment of cervical spine is identified. *Degenerative joint disease of cervical spine, more prominent at C5-C6 level, as described above. 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 There is suspected left pars defect at L5-S1 level. Additional imagingwith oblique views is recommended. Report dictated by José Hickey MD (logistics vice president). > Dictated by José Hickey (Occupational Therapy Director) 01/31/2022 9:16 AM I, George Rangel MD have personally reviewed and interpreted this examination/study. > Interpreting Provider: George Rangel MD on 01/31/2022 12:02 PM Heriberto Aburto MD DIAGNOSTIC IMAGING O RDERABLES * PFT (12/07/2021) 12/07/2021 Narrative 12/07/2021 Ordered by an unspecified provider. Scanned Document SCANNING ONLY * CULTURE URINE REFLEXED I (08/26/2021 11:43 AM CDT) Only the most recent of2 resultswithin the time period is included. Reflexive Urine Culture See Below [facility] Comment: NO CULTURE INDICATED Test Performed at: [facility] [address] [place], [place] ??[phone] LEE VILLALTA DO,MPH 08/26/2021 11:4 3 AM CDT 08/26/2021 11:44 AM CDT Heriberto Aburto MD LAB - MICROBIOLOGY O RDERABLES Performing Organization Address [facility] de Phone Number [facility] [address] [place] [phone] * (ABNORMAL) MOISE BLOOD TITER (08/26/2021 11:43 AM CDT) Only the most recent of2 resultswithin the time period is included. MOISE 1:80(H) titer [facility] Comment: A low level MOISE titer may be present in pre-clinical autoimmune diseases and normal individuals. ?Reference Range ?<1:40 ?Negative ?1:40-1:80 ?Low Antibody Level ?>1:80 ?Elevated Antibody Level MOISE Pattern Nuclear, Discrete Nuclear Dots(A) [facility] Comment: Nuclear dots (6-20 in number per cell) pattern is seen in primary biliary cholangitis (PBC), polymyositis/dermatomyositis, and other systemic autoimmune rheumatic diseases. AC-6,7: Discrete Nuclear Dots International Consensus on MOISE Patterns (https://doi.org/10.1515/otly-8582-3482) Test Performed at: [facility] [address] [place], [place] ??[phone] LEE VILLALTA DO,MPH 08/26/2021 11:4 3 AM CDT 08/26/2021 11:44 AM CDT Heriberto Aburto MD LAB - CHEMISTRY [place] Performing Organization Address [facility] de Phone Number [facility] [address] [place] [address] * LAB RESULTS ORDER (03/02/2021) Only the most recent of2 resultswithin the time period is included. 03/02/2021 Narrative 03/02/2021 Ordered by an unspecified provider. Scanned Document LAB - THERAPEUTIC DR UG MONITORING ORDERABLES * TSH REFLEX FREE T4 (02/08/2021 10:59 AM DIRECT MAIL MANAGER) Pathologist [facility] TSH with Reflex FT4 2.75 0.40 - 4.50 mIU/L [facility] Comment: Test Performed at: [facility] ??[phone] LEE VILLALTA DO,MPH Blood BLOOD SPECIMEN / Unknown 02/08/2021 10:59 AM DIRECT MAIL MANAGER 02/08/2021 11:01 AM DIRECT MAIL MANAGER Heriberto Aburto MD LAB - CHEMISTRY [place] Performing Organization Address [facility] de Phone Number [address] [address] * (ABNORMAL) SS-A/SS-B (SJOGREN'S) ANTIBODY PANEL (02/08/2021 10:59 AM DIRECT MAIL MANAGER) Only the most recent of2 resultswithin the time period is included. Pathologist [facility] Sjogren's Antibodies (SSA) >8.0 POS(A) <1.0 NEG AI [facility] Sjogren's Antibodies (SSB) <1.0 NEG <1.0 NEG AI [facility] Comment: Test Performed at: [facility] ??[phone] LEE VILLALTA DO,MPH Blood BLOOD SPECIMEN / Unknown 02/08/2021 10:59 AM DIRECT MAIL MANAGER 02/08/2021 11:01 AM DIRECT MAIL MANAGER Heriberto Aburto MD LAB - CHEMISTRY [place] Performing Organization Address [facility] de Phone Number [facility] [phone] [place] [address] * VITAMIN D 25-HYDROXY (02/08/2021 10:59 AM DIRECT MAIL MANAGER) Only the most recent of2 resultswithin the time period is included. Vitamin D, 25 Hydroxy 36 30 - 100 ng/mL [facility] Comment: Vitamin D Status ? 25-OH Vitamin D: Deficiency: ?<20 ng/mL Insufficiency: ? 20 - 29 ng/mL Optimal: ? > or = 30 ng/mL For 25-OH Vitamin D testing on patients on D2-supplementation and patients for whom quantitation of D2 and D3 fractions is required, the QuestAssureD(TM) 25-OH VIT D, (D2,D3), LC/MS/MS is recommended: order code [id number] (patients >2yrs). See Note 1 Note 1 For additional information, please refer to http://education.Vcommerce/faq/OLJ756 (This link is being provided for informational/ educational purposes only.) Test Performed at: [facility] [address] [place], [place] ??[phone] LEE VILLALTA DO,MPH Blood BLOOD SPECIMEN / Unknown 02/08/2021 10:59 AM DIRECT MAIL MANAGER 02/08/2021 11:01 AM DIRECT MAIL MANAGER Heriberto Aburto MD LAB - CHEMISTRY [place] [facility] [address] [place] [address] * CULTURE URINE REFLEXED (04/09/2020 12:09 PM DIRECT MAIL MANAGER) Only the most recent of3 resultswithin the time period is included. Reflexive Urine Culture See Below [facility] Comment: CULTURE INDICATED - RESULTS TO FOLLOW Test Performed at: [facility] [address] [place] ??[address] LEE VILLALTA DO,MPH 04/09/2020 12:0 9 PM DIRECT MAIL MANAGER 04/09/2020 12:09 PM DIRECT MAIL MANAGER Heriberto Aburto MD LAB - MICROBIOLOGY Erika DE [place] ROSABLES [facility] [address] [place] [address] * (ABNORMAL) CULTURE URINE (04/09/2020 12:09 PM DIRECT MAIL MANAGER) Only the most recent of2 resultswithin the time period is included. Culture (A) [facility] Comment: ??CULTURE, URINE, ROUTINE ?Micro Number: ?[id number] ??Test Status: ? Final ??Specimen Source: ?? URINE ??Specimen Quality: ??Adequate ??Result: ?Greater than 100,000 CFU/mL of Proteus mirabilis ? This organism may show imipenem resistance by ? mechanisms other than a carbapenemase. ??COMMENT: ? Additional non-predominating organism(s) isolated. ? These organisms, commonly found on external and ? internal genitalia, are considered colonizers. No ? further testing performed. ?P.mirabilis ?INT ?? DONALDO ?? AMOX/CLAVULANATE ? S ? <=2 ?? AMPICILLIN ? S ? <=2 ?? AMP/SULBACTAM ?S ? <=2 ?? CEFAZOLIN ?NR ?<=4 2 ?? CEFEPIME ? S ? <=1 ?? CEFTRIAXONE ?S ? <=1 ?? CIPROFLOXACIN ?S ? <=0.25 ?? ERTAPENEM ?S ? <=0.5 ?? GENTAMICIN ? S ? <=1 ?? IMIPENEM ? I ? 2 ?? LEVOFLOXACIN ? S ? <=0.12 ?? NITROFURANTOIN ? R ? 128 ?? PIP/TAZOBACTAM ? S ? <=4 ?? TOBRAMYCIN ? S ? <=1 ?? TRIMETHOPRIM/SULFA ? S ? <=20 S=Susceptible ??I=Intermediate ??R=Resistant ??* = Not Tested NR = Not Reported ??NN = See Therapy Comments THERAPY COMMENTS ?Note 1: ?For infections other than uncomplicated UTI ?caused by E. coli, K. pneumoniae or P. mirabilis: ?Cefazolin is resistant if DONALDO > or = 8 mcg/mL. ?(Distinguishing susceptible versus intermediate ?for isolates with DONALDO < or = 4 mcg/mL requires ?additional testing.) ?Note 2: ?For uncomplicated UTI caused by E. coli, ?K. pneumoniae or P. mirabilis: Cefazolin is ?susceptible if DONALDO <32 mcg/mL and predicts ?susceptible to the oral agents cefaclor, cefdinir, ?cefpodoxime, cefprozil, cefuroxime, cephalexin ?and loracarbef. Test Performed at: [facility] [address] [place] ??[phone] LEE VILLATLA DO,MPH 04/09/2020 12:0 9 PM DIRECT MAIL MANAGER 04/09/2020 12:09 PM DIRECT MAIL MANAGER Heriberto Aburto MD LAB - MICROBIOLOGY O RDERABLES Performing Organization Address [facility] de Phone Number [address] [address] * NASIR+IMMUNOGLOBULINS A/G/M QUANT (10/12/2019 10:39 AM CDT) Pathologist [facility] Interpretation [facility] Comment: Normal pattern. No monoclonal proteins detected. IgA 223 47 - 310 mg/dL [facility] IgG 885 600 - 1640 mg/dL [facility] IgM 77 50 - 300 mg/dL [facility] Comment: Test Performed at: [facility] ??[phone] LEE VILLALTA DO,MPH 10/12/2019 10:3 9 AM CDT 10/12/2019 10:39 AM CDT Heriberto Aburto MD LAB - SEROLOGY ORDER PRAMOD Performing Organization Address [facility] de Phone Number [place] [phone] * (ABNORMAL) URINALYSIS MICROSCOPIC ONLY REFLEXED (12/06/2018 11:44 AM CDT) Only the most recent of6 resultswithin the time period is included. WBC UA 11-30(A) 0 - 5 /hpf [facility] INSURANCE BILL RBC UA 0-2 0 - 2 /hpf [facility] INSURANCE BILL Epithelial Cells (non renal) 0-10 0 - 10 /hpf [facility] INSURANCE BILL Epithelial Cells (renal) NOT NEEDED [facility]URANCE BILL Comment:Ancillary determined the test is not needed. Casts ua NOT NEEDED [facility] INSURANCE BILL Comment:Ancillary determined the test is not needed. Casts UA NOT NEEDED [facility] INSURANCE BILL Comment:Ancillary determined the test is not needed. Crystals UA NOT NEEDED [facility] INSURANCE BILL Comment:Ancillary determined the test is not needed. Crystals UA NOT NEEDED [facility] INSURANCE BILL Comment:Ancillary determined the test is not needed. Mucus UA Present Not Estab. [facility] INSURANCE BILL Bacteria UA Few None seen/Few [facility] INSURANCE BILL Yeast UA NOT NEEDED [facility] INSURANCE BILL Comment:Ancillary determined the test is not needed. Trichomonas UA NOT NEEDED [facility] INSURANCE BILL Comment:Ancillary determined the test is not needed. Comment Urine NOT NEEDED [facility] INSURANCE BILL Comment: FASTING Ancillary determined the test is not needed. 12/06/2018 11:4 4 AM CDT 12/06/2018 Narrative Resulting Agency Comment Lab Testing performed at: [facility] [place] [address] ??[facility] [phone] Serge Topete MD LAB - URINALYSIS ORD ERABLES Performing Organization Address [facility] Co de Phone Number [facility] INSURANCE BILL [address] [place] [address] * CULTURE URINE COMPREHENSIVE (12/06/2018 11:44 AM CDT) Only the most recent of2 resultswithin the time period is included. [facility] Urine Culture Comprehensive Final report [facility] INSURANCE BILL Result 1 [facility] INSURANCE BILL Comment: Mixed urogenital daria 1,000 Colonies/mL FASTING 12/06/2018 11:4 4 AM CDT 12/06/2018 Narrative Resulting Agency Comment Lab Testing performed at: [facility] [place] [address] ??[facility] [phone] Serge Topete MD LAB - MICROBIOLOGY O RDERABLES Performing Organization Address City/[facility]/ZIP Co de Phone Number [facility] INSURANCE BILL [address] [place] [address] * EYE EXAM (05/05/2018 10:26 AM DIRECT MAIL MANAGER) Anatomical Region Laterality Modality Other Narrative 05/05/2018 10:26 AM DIRECT MAIL MANAGER Ordered by an unspecified provider. Scanned Document SCANNING ONLY * EYE EXAM (04/28/2018 1:30 PM DIRECT MAIL MANAGER) Anatomical Region Laterality Modality Other Narrative 04/28/2018 1:30 PM DIRECT MAIL MANAGER Ordered by an unspecified provider. Scanned Document SCANNING ONLY * CELIAC DISEASE COMPREHENSIVE (08/01/2017 11:40 AM CDT) Antigliadin Antibody IgA 4 0 - 19 units [facility] INSURANCE BILL Comment: ?Negative ? 0 - 19 ?Weak Positive ? 20 - 30 ?Moderate to Strong Positive ?? >30 Gliadin Deamidated Antibody IgG 4 0 - 19 units [facility] INSURANCE BILL Comment: ?Negative ? 0 - 19 ?Weak Positive ? 20 - 30 ?Moderate to Strong Positive ?? >30 TTG Antibody IgA <2 0 - 3 U/mL [facility] INSURANCE BILL Comment: ? Negative ?0 - ??3 ? Weak Positive ?? 4 - 10 ? Positive ? >10 ?. ?Tissue Transglutaminase (tTG) has been identified ?as the endomysial antigen. ??Studies have demonstr- ?ated that endomysial IgA antibodies have over 99% ?specificity for gluten sensitive enteropathy. TTG Antibody IgG <2 0 - 5 U/mL [facility] INSURANCE BILL Comment: ? Negative ?0 - 5 ? Weak Positive ?? 6 - 9 ? Positive ? >9 Endomysial Antibody IgA Negative Negative [facility] INSURANCE BILL IgA Quantitative 267 87 - 352 mg/dL [facility] INSURANCE BILL Comment:FASTING Blood BLOOD SPECIMEN / Unknown 08/01/2017 11:40 AM CDT 08/01/2017 Narrative Resulting Agency Comment [facility] [place] [address] [facility] ??[place] [phone] Serge Topete MD LAB - CHEMISTRY [place] [facility] INSURANCE BILL [address] [place] [address] * SACCHAROMYCES ANTIBODY (ASCA) IGG/IGA PANEL (08/01/2017 11:39 AM CDT) Saccharomyces cerevisiae Antibody IgG <20.0 0.0 - 24.9 Units [facility] INSURANCE BILL Comment: ? Negative ? <20.0 ? Equivocal ??20.1 - 24.9 ? Positive ? >or= 25.0 Saccharomyces cerevisiae Antibody IgA <20.0 0.0 - 24.9 Units [facility] INSURANCE BILL Comment: ?Negative ?<20.0 ?Equivocal 20.1 - 24.9 ?Positive ?>or= 25.0 ? IgA and IgG antibody testing for S. cerevisiae is ? useful adjunct testing for differentiating Crohn's ? disease and ulcerative colitis. Close to 80% of ? Crohn's disease patients are positive for either ? IgA or IgG. In ulcerative colitis, less than 15% are ? positive for IgG and less than 2% are positive for ? IgA. Fewer than 5% are positive for either IgG or ? IgA antibody, and no healthy controls had antibody ? for both. FASTING Blood BLOOD SPECIMEN / Unknown 08/01/2017 11:39 AM CDT 08/01/2017 Narrative Resulting Agency Comment [facility] [address] ??[facility] [phone] Serge Topete MD LAB - SEROLOGY ORDER PRAMOD Performing Organization Address City/[facility] Co de Phone Number [facility] INSURANCE BILL [address] [place] [address] * IGM BLOOD (01/18/2017 3:56 PM DIRECT MAIL MANAGER) IgM Quantitative 88 26 - 217 mg/dL [facility] 01/18/2017 3:56 PM DIRECT MAIL MANAGER 01/18/2017 Narrative [facility] (ALEJANDRA) - 01/19/2017 9:13 AM DIRECT MAIL MANAGER Performed at: ??01 - [facility] [address] [place], [place] ??[id number] Furniture Mechanic: Vincent Michaud PhD, Phone: ??[phone] Heriberto Aburto MD LAB - CHEMISTRY [place] Performing Organization Address City/[facility]/ZIP Co de Phone Number [facility] (ALEJANDRA) * IGG BLOOD (01/18/2017 3:56 PM DIRECT MAIL MANAGER) [facility] IgG Quantitative 916 700 - 1600 mg/dL [facility] (BEAKER) 01/18/2017 3:56 PM DIRECT MAIL MANAGER 01/18/2017 Narrative [facility] (BEAKER) - 01/19/2017 9:13 AM DIRECT MAIL MANAGER Performed at: ??01 - [facility] ??[id number] Furniture Mechanic: Vincent Michaud PhD, Phone: ??[phone] Heriberto Aburto MD LAB - CHEMISTRY [place] Performing Organization Address City/[facility]/ZIP Co de Phone Number [facility] (BEAKER) * IGA BLOOD (01/18/2017 3:56 PM DIRECT MAIL MANAGER) [facility] IgA Quantitative 257 87 - 352 mg/dL [facility] (BEAKER) 01/18/2017 3:56 PM DIRECT MAIL MANAGER 01/18/2017 Narrative [facility] (BEAKER) - 01/19/2017 9:13 AM DIRECT MAIL MANAGER Performed at: ??01 - [address] ??[id number] Furniture Mechanic: Vincent Michaud PhD, Phone: ??[phone] Heriberto Aburto MD LAB - CHEMISTRY [place] Performing Organization Address City/[facility]/ZIP Co de Phone Number [facility] (BEAKER) * (ABNORMAL) URINALYSIS REFLEX MICROSCOPIC REFLEX CULTURE (08/14/2016 11:29 AM CDT) [facility] Specific [place] <=1.005(A) 1.005 - 1.030 [facility] (BEAKER) pH Urine 6.5 5.0 - 7.5 [facility] (BEAKER) Color UA Yellow Yellow [facility] (BEAKER) Appearance Cloudy(A) Clear [facility] (BEAKER) Leukocyte Esterase Negative Negative [facility] (BEAKER) Protein UA Negative Negative/Tra ce [facility] (BEAKER) Glucose UA Negative Negative [facility] (BEAKER) Ketone UA Negative Negative [facility] (BEAKER) Blood UA Negative Negative [facility] (BEAKER) Bilirubin Negative Negative [facility] (BEAKER) Urobilinogen Semi-Qn 0.2 0.2 - 1.0 mg/dL [facility] (BEAKER) Nitrite UA Negative Negative [facility] (BEAKER) Microscopic Examination [facility] (BEAKER) Comment:Microscopic follows if indicated. Microscopic Examination See below: [facility] (BEAKER) Comment:Microscopic was jorden cated and was performed. Urinalysis Reflex [facility] (BEAKER) Comment:This specimen will n ot reflex to a Urine Culture. 08/14/2016 11:2 9 AM CDT 08/14/2016 Narrative [facility] (BEAKER) - 08/15/2016 7:15 AM CDT Performed at: ??01 - [address] ??[id number] Furniture Mechanic: Vincent Michaud PhD, Phone: ??[phone] Heriberto Aburto MD LAB - URINALYSIS ORD ERABLES [facility] (BEAKER) * URINALYSIS W/MICROSCOPIC NO CULTURE (01/31/2016 10:51 AM DIRECT MAIL MANAGER) Only the most recent of2 resultswithin the time period is included. Specific [place] 1.006 1.005 - 1.030 [facility] (BEAKER) pH Urine 6.5 5.0 - 7.5 [facility] (BEAKER) Color UA Yellow Yellow [facility] (BEAKER) Appearance Clear Clear [facility] (BEAKER) Leukocyte Esterase Negative Negative [facility] (BEAKER) Protein UA Negative Negative/Tra ce [facility] (BEAKER) Glucose UA Negative Negative [facility] (BEAKER) Ketone UA Negative Negative [facility] (BEAKER) Blood UA Negative Negative [facility] (BEAKER) Bilirubin Negative Negative [facility] (BEAKER) Urobilinogen Semi-Qn 0.2 0.2 - 1.0 mg/dL [facility] (BEAKER) Nitrite UA Negative Negative [facility] Microscopic Examination [facility] ([facility]) Comment:Microscopic follows if indicated. Microscopic Examination See below: [facility] (BEAKER) Comment:Microscopic was jorden cated and was performed. 01/31/2016 10:5 1 AM DIRECT MAIL MANAGER 01/31/2016 Narrative [facility] ([facility]) - 02/01/2016 7:12 AM DIRECT MAIL MANAGER Performed at: ??01 - Lab[address] ??[id number] Furniture Mechanic: Vincent Michaud PhD, Phone: ??[phone] Specimen Comment: A courtesy copy of this report has been sent to Specimen Comment: Adult Medicine [facility] . Heriberto Aburto MD LAB - URINALYSIS ORD ERABLES Performing Organization Address City/[facility]/ZIP Co de Phone Number [facility] ([facility]) * LDH BLOOD (02/02/2015 10:37 AM DIRECT MAIL MANAGER) Only the most recent of2 resultswithin the time period is included. Pathologist [facility] LDH Total 191 120 - 250 U/L [facility] ([facility]) Comment: Test Performed at: [facility] [address] ??[phone] LEE VILLALTA DO,MPH Blood specimen (specimen) BLOOD SPECIMEN / Unknown 02/02/2015 10:37 AM DIRECT MAIL MANAGER 02/02/2015 10:37 AM DIRECT MAIL MANAGER Heriberto Aburto MD LAB - CHEMISTRY [place] [facility] ([facility]) * DNA ANTIBODY DS CRITHIDIA IFA (10/14/2013 11:29 AM CDT) Pathologist [facility] dsDNA Antibody Crithidia IFA NEGATIVE NEGATIVE [facility] ([facility]) Comment: This test was developed and its performance characteristics have been determined by [employer] [facility]. It has not been cleared or approved by the U.S. Food and Drug Administration. The FDA has determined that such clearance or approval is not necessary. Performance characteristics refer to the analytical performance of the test. dsDNA Antibody Crithidia Titer TNP-Reflex testing not required. [facility] ([facility]) Comment: Test Performed at: [facility] [address] [place], [place] ??[phone] MARIELY WOOD MD PHD 10/14/2013 11:2 9 AM CDT 10/14/2013 11:32 AM CDT Heriberto Aburto MD LAB - SEROLOGY ORDER PRAMOD [facility]) * CHROMATIN ANTIBODY (10/14/2013 11:29 AM CDT) Chromatin Nucleosomal <1.0 NEG <1.0 NEG AI [facility] ([facility]) Comment: Test Performed at: [facility] [address] ??[phone] LEE VILLALTA DO,MPH Blood specimen (specimen) BLOOD SPECIMEN / Unknown 10/14/2013 11:29 AM CDT 10/14/2013 11:32 AM CDT Heriberto Aburto MD LAB - SEROLOGY ORDER PRAMOD Performing Organization Address [facility]/ZIP Co de Phone Number [facility]) * TSH HI LOW REFLEX FREE T4 (10/14/2013 11:29 AM CDT) TSH 2.01 mIU/L [facility] ([facility]) Comment: ?Reference Range ?> or = 20 Years ??0.40-4.50 ? Ranges ?First trimester ?0.26-2.66 ?Second trimester ?? 0.55-2.73 ?Third trimester ?0.43-2.91 REPORT COMMENT: SPECIMEN TYPE->URINE Test Performed at: [facility] [place] [address] [place] ??[phone] LEE VILLALTA DO,MPH 10/14/2013 11:2 9 AM CDT 10/14/2013 11:32 AM CDT Heriberto Aburto MD LAB - CHEMISTRY [place] [facility] ([facility]) * CARDIOLIPIN ANTIBODY IGA (10/14/2013 11:29 AM CDT) Cardiolipin Antibody IgA <11 <=11 APL [facility] ([facility]) Comment: Cardiolipin Ab (IgA) ? Reference range: ?? Value Units Interpretation ?? <=11 ?? APL ? Negative ??12-20 ?? APL ? Indeterminate ??21-80 ?? APL ? Low to Medium Positive ?>80 ?? APL ? High Positive Test Performed at: [facility]/[address] ?? JOANN YADAV MD Blood specimen (specimen) BLOOD SPECIMEN / Unknown 10/14/2013 11:29 AM CDT 10/14/2013 11:32 AM CDT Heriberto Aburto MD LAB - SEROLOGY ORDER PRAMOD Performing Organization Address [facility]/State/ZIP Co de Phone Number [facility] ([facility]) * CARDIOLIPIN ANTIBODY IGM (10/14/2013 11:29 AM CDT) Cardiolipin Antibody IgM <12 <=12 MPL [facility] ([facility]) Comment: Cardiolipin Ab (IgM) ? Reference range: ?? Value Units Interpretation ?? <=12 ?? MPL ? Negative ??13-20 ?? MPL ? Indeterminate ??21-80 ?? MPL ? Low to Medium Positive ?>80 ?? MPL ? High Positive Test Performed at: [employer] [facility]/[email or web address] [address] [place] [address] ?? JOANN YADAV MD Blood specimen (specimen) BLOOD SPECIMEN / Unknown 10/14/2013 11:29 AM CDT 10/14/2013 11:32 AM CDT Heriberto Aburto MD LAB - SEROLOGY ORDER PRAMOD Performing Organization Address [facility] de Phone Number [facility]) * CARDIOLIPIN ANTIBODY IGG (10/14/2013 11:29 AM CDT) Cardiolipin Antibody IgG <14 <=14 GPL [facility] ([facility]) Comment: Cardiolipin Ab (IgG) ? Reference range: ?? Value Units Interpretation ?? <=14 ?? GPL ? Negative ??15-20 ?? GPL ? Indeterminate ??21-80 ?? GPL ? Low to Medium Positive ?>80 ?? GPL ? High Positive Test Performed at: [employer] [facility]/[email or web address] [address] [place] [address] ?? JOANN YADAV MD Blood specimen (specimen) BLOOD SPECIMEN / Unknown 10/14/2013 11:29 AM CDT 10/14/2013 11:32 AM CDT Heriberto Aburto MD LAB - SEROLOGY ORDER PRAMOD Performing Organization Address [facility] de Phone Number [facility]) * LUPUS ANTICOAGULANT PANEL W RFLX (10/14/2013 11:29 AM CDT) Lupus Anticoagulant see note [facility] ([facility]) Comment: A Lupus Anticoagulant is not detected. Reference Range: ??Not Detected ? http://education.[employer]/faq/LupusAnticoag ? This interpretation is based on the following test results. PTT Lupus Anticoagulant 38 <=40 sec [facility] ([facility]) Interpretation Not Indicated [facility] ([facility]) dRVVT Screen 30 <=45 sec [facility] ([facility]) Comment: Test Performed at: [facility]/[email or web address] [address] [place] [address] ?? JOANN YADAV MD Plasma specimen (specimen) 10/14/2013 11:29 AM CDT 10/14/2013 11:32 AM CDT Heriberto Aburto MD LAB - HEMATOLOGY ORD ERABLES [facility] ([facility]) * BETA-2 GLYCOPROTEIN 1 ANTIBODY IGG/IGM/IGA PANEL (10/14/2013 11:29 AM CDT) Beta-2 Glycoprotein 1 Antibody 1 IgG <9 <=20 SGU [facility] ([facility]) Comment: Test Performed at: [facility]/[employer] GasOHIOHEALTH [facility] CAN[facility] CENTERAB [employer] [address] [place] [address] ?? JOANN YADAV MD Beta-2 Glycoprotein 1 Antibody IgM <9 <=20 SMU [facility]) Beta-2 Glycoprotein 1 Antibody IgA <9 <=20 HUSSEIN [facility] ([facility]) Comment: The Antiphospholipid Antibody Syndrome (APS) is a clinical-pathologic correlation that includes a clinical event (e.g. thrombosis, loss, thrombocytopenia) and persistent positive Antiphospholipid Antibodies (IgM or IgG KEELEY >40 MPL/GPL, IgM or IgG anti-B2GPI antibodies, or a Lupus Anticoagulant). The IgA isotype has been implicated in smaller studies, but have not yet been incorporated into the APS criteria. International consensus guidelines suggest waiting at least 12 weeks before retesting to confirm antibody persistence. Reference J Thromb Haemost 2006: 4; 295 For more information on this test, go to http://education.[employer]/faq/ZIH761 Serum 10/14/2013 11:2 9 AM CDT 10/14/2013 11:32 AM CDT Heriberto Aburto MD LAB - SEROLOGY ORDER PRAMOD [facility]) * FATIMA (SM) ANTIBODY SHAYNE (10/14/2013 11:29 AM CDT) SHAYNE Fatima (SM) Antibody <1.0 NEG <1.0 NEG AI [facility] ([facility]) Comment: REPORT COMMENT: SPECIMEN TYPE->URINE Test Performed at: [facility] [place] [address] [place], [place] ??[phone] LEE VILLALTA DO,MPH Blood specimen (specimen) BLOOD SPECIMEN / Unknown 10/14/2013 11:29 AM CDT 10/14/2013 11:32 AM CDT Heriberto Aburto MD LAB - CHEMISTRY [place] Performing Organization Address [facility]/ZIP Co de Phone Number [facility]) * BEAM DYER OPERATOR ANTIBODY (10/14/2013 11:29 AM CDT) SHAYNE BEAM DYER OPERATOR Antibody <1.0 NEG <1.0 NEG AI [facility] ([facility]) Comment: Test Performed at: [facility] [place] [address] [place] ??[phone] LEE VILLALTA DO,MPH Blood specimen (specimen) BLOOD SPECIMEN / Unknown 10/14/2013 11:29 AM CDT 10/14/2013 11:32 AM CDT Heriberto Aburto MD LAB - CHEMISTRY [place] [facility]) * RHEUMATOID FACTOR BLOOD QUANTITATIVE (10/14/2013 11:29 AM CDT) Rheumatoid Factor 7 <14 IU/mL [facility] ([facility]) Comment: Test Performed at: [employer] [facility] [place] [address] [place] ??[phone] LEE VILLALTA DO,MPH Blood specimen (specimen) BLOOD SPECIMEN / Unknown 10/14/2013 11:29 AM CDT 10/14/2013 11:32 AM CDT Heriberto Aburto MD LAB - CHEMISTRY [place] Performing Organization Address [facility] de Phone Number [facility]) * MOISE BLOOD SCREEN W/REFLEX TITER (10/14/2013 11:29 AM CDT) Pathologist [facility] MOISE Screen NEGATIVE NEGATIVE [facility] ([facility]) Comment: Test Performed at: [employer] [place] ??[phone] LEE VILLALTA DO,MPH Blood specimen (specimen) BLOOD SPECIMEN / Unknown 10/14/2013 11:29 AM CDT 10/14/2013 11:32 AM CDT Heriberto Aburto MD LAB - CHEMISTRY [place] Performing Organization Address [facility] de Phone Number [facility] ([facility]) * SCLERODERMA 70 (SCL) ANTIBODY (10/14/2013 11:29 AM CDT) Pathologist [facility] SHAYNE SCL-70 Antibody <1.0 NEG <1.0 NEG AI [facility] ([facility]) Comment: Test Performed at: [employer] [address] [place] ??[phone] LEE VILLALTA DO,MPH Blood specimen (specimen) BLOOD SPECIMEN / Unknown 10/14/2013 11:29 AM CDT 10/14/2013 11:32 AM CDT Heriberto Aburto MD LAB - CHEMISTRY [place] Performing Organization Address [facility] de Phone Number [facility]) * CYCLIC CITRUL PEPTIDE AB IGG (CCP) (10/14/2013 11:29 AM CDT) Pathologist [facility] Cyclic Citrullinated Peptide Antibody <16 UNITS [facility] ([facility]) Comment: Reference Range Negative: ?<20 Weak Positive: ? 20-39 Moderate Positive: ?? 40-59 Strong Positive: ? >59 REPORT COMMENT: SPECIMEN TYPE->URINE Test Performed at: [employer] [place] ??[phone] LEE VILLALTA DO,MPH Blood specimen (specimen) BLOOD SPECIMEN / Unknown 10/14/2013 11:29 AM CDT 10/14/2013 11:32 AM CDT Heriberto Aburto MD LAB - CHEMISTRY [place] [facility] Organization Address City/State/ZIP Co de Phone Number [facility] ([facility]) Care Teams Meat Lugger Relationship Specialty Start Date End Date Andreas Souza MD [address] [place] [address] PCP - General Family Medicine 12/04/22
--- OUTSIDE RECORDS SUMMARY | 2024-04-07 12:52 | XMS_ITS | Encounter Summary ---
Author Organization [facility] Address Critical access hospital6 [facility]. [place], [place] [address] [place] [address] Care Team Providers Care Pit Supervisor Name Role Phone Leigh Ann Saucedo NP Primary Care Provider Aide Carson EHS TEACHER Primary Care Provider Kishor Hassan MD Primary Care Provider [phone] Pat Cazares EHS TEACHER Primary Care Provider [phone] Encounter Details Date Type Department Care Team (Late st Contact Info) Description 04/15/2013 Abstract [facility] CONVERSION [address] [place] [address] Alexandra Etienne MD Social History Tobacco Use Types Packs/Day Years Used Date Smoking Tobacco: Never Comments Unknown Sex and Gender Information Value Date Recorded Sex Assigned at Not on file Legal Sex Female 11:41 PM CDT Gender Identity Not on file Sexual Orientation Not on file documented as of this encounter Plan of Treatment Not on file documented as of this encounter Visit Diagnoses Not on filedocumented in this encounter Care Teams Pit Supervisor Relationship Specialty Start Date End Date Leigh Ann Saucedo NP PCP - General Nurse Practitioner Family 01/08/18 11/05/19 Aide Kelly NP PCP - General NURSE PRACTITIONER 11/06/19 06/05/20 Kishor Hunt MD PCP - General INTERNAL MEDICINE 06/06/20 07/11/21 Pat Cazares NP [address] [place] [address] PCP - General NURSE PRACTITIONER 07/21/21 documented as of this encounter
--- OUTSIDE RECORDS SUMMARY | 2024-04-07 12:52 | XMS_ITS | Continuity of Care Document ---
Author Organization [facility] Address [address] [place] [id number] Care Team Providers Care Separations Scientist Name Role Phone Lee Felipe MD Unavailable Pcp, Verify Primary Care Provider Unavailabl e Encounters Date Type Department Care Team Description 08/15/2023 11:30 AM CDT Office Visit [facility] in Cardiology and Electrophysiology [facility] in [place] [address] [place] [id number] Lee Felipe MD Atypical atrial flutter (CMD) (Primary Dx) 01/14/2023 8:45 AM COLD ROLL CATCHER Anesthesia Event [facility] ELECTROPHYSIOLOGY [address] [place] [phone] Adalgisa Wright MD 01/14/2023 8:30 AM COLD ROLL CATCHER - 01/14/2023 10:30 AM COLD ROLL CATCHER Surgery [facility] ELECTROPHYSIOLOGY [address] [place] [phone] Lee Felipe MD Ablation Atrial Tachycardia 01/14/2023 6:29 AM COLD ROLL CATCHER - 01/14/2023 5:15 PM COLD ROLL CATCHER Hospital Encounter [facility] ELECTROPHYSIOLOGY [address] [place] [phone] Lee Felipe MD Discharge Disposition: Home or Self Care 01/11/2023 Travel 01/03/2023 External Lab Outside Facility Provider, Outside 01/03/2023 External Lab Outside Facility Provider, Outside 01/03/2023 External Lab Outside Facility Provider, Outside 11/21/2022 Travel 11/12/2022 External Lab Outside Facility Provider, Outside 11/12/2022 External Lab Outside Facility Provider, Outside 11/12/2022 External Lab Outside Facility Provider, Outside 08/23/2022 External Record [facility] [address] [place] [address] Provider, Outside 03/04/2022 External Record [facility] [address] [place] [phone] Provider, Outside 12/11/2019 Diagnostic Trans [facility] CON[facility] Lee Felipe MD 12/11/2019 3:12 PM CDT Hospital [facility] CON[facility] Lee Felipe MD Discharge Disposition: Home or Self Care 12/10/2019 7:30 AM CDT Lab Services [facility] [address] [place] [phone] Encounter for preprocedural laboratory examination 12/09/2019 Orders Only [facility] [address] [facility] [address] [place] [phone] Lee Felipe MD Encounter for preprocedural laboratory examination (Primary Dx) Allergies Active Allergy Reactions Criticality Noted Date [...] Problems No known active problems Social History Smoking Status as of 04/07/2024 Tobacco Use Types Packs/Day Years Used Date Smoking Tobacco: Never Assessed PHQ-2 Answer Date Recorded Initial depression screening [...] ST Respiratory Rate 21 01/14/2023 4:00 PM COLD ROLL CATCHER Oxygen Saturation 97% 08/15/2023 11:20 AM CDT [...] Office Visit [facility] in [facility]iology and Electrophysiology [facility] in [address] [phone] Lee Felipe MD [address] [place] [id number] Medical Devices Implanted Type Area Tow Truck Driver Device Identifier Shelf Expiration Date Model / Serial / Lot System Clsr Vascade Mvp 6-12fr Vns - [id number] Implanted:Qty : 2 on 01/14/2023 by Lee Felipe MD at [facility] Other Implant Right: Femoral Vein [employer] [id number] 09/12/2024 [id number]- [id number] / / [id number] 14C System Clsr Vascade Mvp 6-12fr Vns - [id number] Implanted:Qty : 2 on 01/14/2023 by Lee Felipe MD at [facility] Other Implant Left: Femoral Vein [employer] [id number] 09/12/2024 [id number] [id number] / / [id number] 14C Procedures Procedure Name Priority Date/Time Associated Diagnosis Comments ELECTROCARDIOGRAM 12-LEAD Routine 01/14/2023 1:31 PM COLD ROLL CATCHER ELECTROPHYSIOLOGY CASE Routine 11:58 AM COLD ROLL CATCHER POCT ACTIVATED CLOTTING TIME Routine 01/14/2023 11:32 AM COLD ROLL CATCHER POCT ACTIVATED CLOTTING TIME Routine 01/14/2023 11:02 AM COLD ROLL CATCHER POCT ACTIVATED CLOTTING TIME Routine 01/14/2023 10:41 AM COLD ROLL CATCHER POCT ACTIVATED CLOTTING TIME Routine 01/14/2023 10:19 AM COLD ROLL CATCHER POCT ACTIVATED CLOTTING TIME Routine 01/14/2023 9:56 AM COLD ROLL CATCHER POCT ACTIVATED CLOTTING TIME Routine 01/14/2023 9:38 AM COLD ROLL CATCHER ELECTROCARDIOGRAM 12-LEAD Routine 01/14/2023 8:40 AM COLD ROLL CATCHER CBC NO DIFFERENTIAL Routine 01/03/2023 1 :17 PM CDT PROTHROMBIN TIME (INR/PT) Routine 01/03/2023 1:17 PM CDT COMPREHENSIVE METABOLIC PANEL Routine 01/03/2023 1:17 PM CDT CBC NO DIFFERENTIAL Routine 11/12/2022 2 :16 PM CDT PTINR & PTT COMBINATION Routine 11/13/19 2:16 PM CDT COMPREHENSIVE METABOLIC PANEL Routine 11/12/2022 2:16 PM CDT ELECTROCARDIOGRAM 12-LEAD Routine 11/12/2022 XRAY CHEST 2 VIEWS Routine 11/12/2022 CD [facility] PROCEDURE Routine 12/12/2019 8:59 AM CDT ELECTROCARDIOGRAM 12-LEAD 12/12/2019 8:28 AM CDT CD [facility] PROCEDURE Routine 12/11/2019 11:34 AM CDT 2019 NOVEL CORONAVIRUS (SARS-COV-2) Routine 12/10/2019 7:28 AM CDT Encounter for preprocedural laboratory examination Results * Electrocardiogram 12-Lead (01/14/2023 1:31 PM COLD ROLL CATCHER) Only the most recent of4 resultswithin the time period is included. Ventricular Rate EKG/Min (BPM) 81 MUSE Atrial Rate (BPM) 81 MUSE IN-Interval (MSEC) 172 MUSE QRS-Interval (MSEC) 82 MUSE QT-Interval (MSEC) 398 MUSE QTc 462 MUSE P Pepperell (Degrees) 69 MUSE R Pepperell (Degrees) 0 MUSE T Pepperell (Degrees) 55 MUSE REPORT TEXT Normal sinus rhythm Nonspecific T wave abnormality Abnormal ECG When compared with ECG of 14-JAN-2023 08:40, No significant change was found Confirmed by MERCED SHEPPARD MD ([id number]) on 01/14/2023 5:42:52 PM MUSE 01/14/2023 1:31 PM COLD ROLL CATCHER Lee Felipe MD ECG ORDERABLES MUSE * ABLATION ATRIAL TACHYCARDIA (01/14/2023 11:58 AM COLD ROLL CATCHER) Narrative MERGE - 01/15/2023 8:33 AM COLD ROLL CATCHER 1. Acutely successful radiofrequency catheter ablation of supraventricular arrhythmia ( Kari AT) 2. Acutely successful radiofrequency catheter ablation of supraventricular arrhythmia mechanism (SVC Flutter) Technique - Cardiology The patient was brought to the cardiovascular procedural area non-sedated, in the fasting state. MAC sedation was performed by the anesthesiolgist with continuous blood pressure, EKG, and pulse oximetric monitoring. It is estimated the patient lost 25mL of blood during the procedure. Catheter ablation of SVT Name: Krystle Retana Age: [age] year old Date: 01/14/2023 Surgeon: Lee Felipe MD [facility] Procedures Performed: 1. Comprehensive electrophysiology study with induction of arrhythmia. 2. Left atrial pacing and recording. 3. Three-dimensional electrophysiologic mapping. 4. Infusion of Isuprel and programmed stimulation. 5. Radiofrequency catheter ablation of SVT( Kari AT) 6. Radiofrequency catheter ablation of SVT Mechanism( SVC AT) Preoperative Diagnosis: SVT Postoperative Diagnosis: Kari AT Procedural Indications: This is an 62 year old female who has burst of AT despite AAD Procedure Details: After informed consent, the patient was brought to the EP Lab. Once adequately sedated under conscious sedation, the right and left femoral regions were infiltrated with 1% Lidocaine. A percutaneous needle was used to access the right and left femoral veins. Guidewire was inserted and sheaths were placed. Four sheaths were placed, two in the right and two in the left femoral veins, and through these sheaths the following catheters were introduced: A decapolar coronary sinus catheter was positioned in the coronary sinus with leftatrial pacing recording, an ICE catheter was advanced to visualize right and left atrial anatomy, an Octaray 2-2-2 MEM catheter was advanced to the RA, and an ablation 3.5 mm STSF radiofrequency catheter was advanced over a 8.5F long vizigo bidirectional sheath for mapping and ablation. Patient was easily inducible by burst pacing to go into paroxysms of atrial tachycardia. AT cycle length 460 ms. EAM demonstrated significant scar in the right atrium, with areas of low voltage interspersed in normal tissue especially in the region of the posterior wall extending to the SVC. Mapping with MEM catheter localized the area of earliest atrial activation at the region of the posterior kari terminalis.The area was homogenized using up to 50 W of power targeting absence of pace capture at the region. The patient had bursts of another non sustained AT which appeared to be similar to upper loop re entry to the region of the posterior base of the SVC with evidence of fractionated signals at the area. A linear lesion connecting the posterior SVC to the kari ablation lesion set was done using 50 W of power and targeting an AI of 550. Pace mapping of the phrenic nerve was done before attempting ablation to prevent injury.The patient was placed on isuprel at 2mcg/min and rapid burst pacing was used to confirm suppression of AT focus. Aggressive burst pacing < 200 ms led to sustained atrial fibrillation which required DCCV 360 J to NSR. The patient was monitored for 30 minutes without evidence of any abnormal atrial activity. There was no further tachycardia present or inducible. At that point the procedure was terminated. Catheters and sheaths were removed and the patient was returned to monitored bed in stable condition. Complications: None. Conclusion: 1. Acutely successful radiofrequency catheter ablation of supraventricular arrhythmia ( Kari AT) 2. Acutely successful radiofrequency catheter ablation of supraventricular arrhythmia mechanism (SVC Flutter) Plan: 1. At this point, the patient will be returned to a monitored bed in stable Condition. 2. DC home when bedrest is up and she is fully awake. 3. Follow up with me in the office in two weeks for routine postoperative care. Patient HPI - Cardiology 62yoF with connective tissue disease(raynaud, Sjogren on plaquenil) presents for redo ablation of atrial tachycardia. S/p AF ablation in 2012, and 2019 with recurrent palpitations symptomatic, failed trial of flecainide. On BB and DOAC ?? # AT s/p ablataion 2012 - PVI 12/2019 PVI redo - RIPV reconnection, PAC Kari ablation AF trigger, IAC trigger ablation Plan: Given symptoms despite AAD, plan for redo Ablation of PAC triggers Afib ablation consent: The procedure, benefits, alternatives, and risks including but not limited to: allergic reaction, pain and discomfort, infection, inability to effectively treat the rhythm disturbance (arrhythmia), new arrhythmias, need for future procedures, need for pacemaker implantation, worsening kidney function, nerve injury, injury to the breathing muscle (diaphragm) or the nerve that supplies it (phrenic nerve), blood clotting with potential blockage of major blood vessels including in the lungs (pulmonary embolism) and brain (stroke), injury to and narrowing of the blood vessels in the left upper heart chamber (pulmonary veins), injury to the nerve supplying the stomach and voice box, injury to the food pipe (esophagus), bleeding requiring transfusion, injury to major blood vessels and the heart, emergent need for surgery including open-heart, heart attack, and were discussed in detail with the patient. Given the complex nature of the disease as well as the ablation procedure, success is not guaranteed. The patient demonstrates awareness and understanding of these issues, was agreeable to proceed and provided written informed consent. I discussed the patient's code status and the patient is a full code. Lee Felipe MD CV ELECTROPHYSIOLOGY PERFORMABLES MERGE * Activated Clotting Time (01/14/2023 11:32 AM COLD ROLL CATCHER) Only the most recent of6 resultswithin the time period is included. [facility] Activated Clotting Time 248 Baseline/Target ranges are set by clinicians for each patient/procedu re Lee Felipe MD POINT OF CARE TEST O RDERABLES * (ABNORMAL) Prothrombin Time (INR/PT) (01/03/2023 1:17 PM CDT) [facility] PROTIME-PT 17.4(H) 11.1 - 14.7 Seconds [facility] INR 1.3 [facility] Comment: INR Indication 0.9-1.1 Patients not on anticoagulant therapy. 2.0-3.0 Routine therapy 2.5-3.5 Recurrent myocardial infarction or mechanical prosthetic valves. 01/03/2023 1:17 PM CDT [facility] - 01/03/2023 1:17 PM CDT External results verified in Extract by [id number] on 01/20/2023 at 05:14 AM. Outside Provider BKR LAB BLOOD ORDERA BLES [place] [id number] [facility] [address] [place] [address] * (ABNORMAL) CBC No Differential (01/03/2023 1:17 PM CDT) Only the most recent of2 resultswithin the time period is included. [facility] WBC 4.8 4.5 - 10.0 K/mm3 [facility] RBC 3.83(L) 4.2 - 5.4 M/mm3 [facility] HGB 12.3 12.0 - 15.0 g/dL [facility] HCT 37.3 37.0 - 47.0 % [facility] MCV 97.4 80 - 100 fl [facility] MCH 32.1 26 - 34 pg [facility] MCHC 33.0 32 - 36 g/dl [facility] RDW-CV 12.3 11.5 - 14.5 % [facility] PLT 275 150 - 375 K/mm3 [facility] MPV 9.6 7.4 - 10.4 [facility] 01/03/2023 1:17 PM CDT [facility] - 01/03/2023 1:17 PM CDT External results verified in Extract by [email or web address] on 01/20/2023 at 05:14 AM. Outside Provider BKR LAB BLOOD ORDERA BLES [place] [id number] [place] [phone] * (ABNORMAL) Comprehensive Metabolic Panel (01/03/2023 1:17 PM CDT) Only the most recent of2 resultswithin the time period is included. Sodium 131(L) 137 - 145 mmol/L [facility] Potassium 4.6 3.4 - 5.0 mmol/L [facility] Chloride 98 98 - 107 mmol/L [facility] Carbon Dioxide 24 22 - 30 mmol/L [facility] Anion Gap 9 8 - 16 mmol/L [facility] BUN 14 7 - 17 mg/dL [facility] Comment:Delta: 9 on 11/28/19 [phone] Creatinine 1.10(H) 0.7 - 1.0 mg/dL [facility] GFR,ESTIMATE 50(L) > or = 60 ml/min/1.7 3 [facility] Comment: The MDRD formula used to calculate the eGFR result has not been valldated inpatients >70years of age. Glucose 90 65 - 110 mg/dL [facility] CALCIUM 9.8 8.4 - 10.2 mg/dL [facility] TOTAL BILIRUBIN 1.0 0.2 - 1.3 mg/dL [facility] AST/SGOT 29 14 - 36 U/L [facility] ALT/SGPT 23 6 - 35 U/L [facility] TOTAL PROTEIN 8.0 6.3 - 8.2 g/dL [facility] Albumin 4.8 3.5 - 5.1 g/dL [facility] ALK PHOSPHATASE 78 38 - 126 U/L [facility] Fasting Status Fasting status not provided [facility] 01/03/2023 1:17 PM CDT [facility] - 01/03/2023 1:17 PM CDT External results verified in Extract by [id number] on 01/20/2023 at 05:14 AM. Outside Provider BKR LAB BLOOD ORDERA BLES Performing Organization Address City/[facility]/ZIP Co de Phone Number [address] [address] * PTINR & PTT COMBINATION (11/12/2022 2:16 PM CDT) PROTIME-PT 14.1 11.1 - 14.7 Seconds [facility] INR 1.1 ML [facility] Comment: INR ?Indication 0.9 - 1.1 ? Patients not on anticoagulant therapy. 2.0 - 3.0 ? Routine therapy. 2.5 - 3.5 ? Recurrent myocardial infarction or mechanical prosthetic valves. PTT 31.5 22.3 - 35.8 SECONDS [facility] 11/12/2022 2:16 PM CDT Narrative [facility] - 11/12/2022 2:16 PM CDT External results verified in Extract by [id number] on 01/20/2023 at 05:11 AM. Outside Provider LABORATORY - EXTERNA L [facility] [address] [facility] [address] [place], [place] [id number] * XRAY CHEST 2 VIEWS (11/12/2022) Anatomical Region Laterality Modality Other Outside Provider X-RAY * CD [facility] Procedure (12/12/2019 8:59 AM CDT) 12/12/2019 8:59 AM CDT Narrative [facility] - [facility] - 12/12/2019 9:39 AM CDT *[facility]* [address] [address] Transthoracic Echocardiogram (TTE) Patient: Krystle Retana ?Study Date/Time: ? Dec 12 2019 7:28AM ?FIN#: ?[id number] : ? 1960 ? Ht/Wt: ? 167.6cm 71.2kg Age: ? 59 ? BSA/BMI: ? 1.8m^2 25.3kg/m^2 Gender: ??F ?Baseline BP: ? 126 / 66 Ordering Physician: ?? Lee Felipe MD Referring Physician: ??Lee Felipe MD Attending Physician: ??Lee Felipe MD Diagnostic Physician: Jimi Samson MD Strings Teacher: ?Shanique Peña RDCS INDICATIONS: ?? Atrial fibrillation. ??POST ABLATION. STUDY CONCLUSIONS SUMMARY: 1. Left ventricle: The cavity size is normal. Wall thickness is normal. ?? The ejection fraction was measured by single plane method of disks. The ?? ejection fraction is 54%. 2. No prior study available for comparison. STUDY DATA: ?? Procedure: ??Transthoracic echocardiography was performed. Image quality was good. ??M-mode, complete 2D, complete spectral Doppler, and color Doppler. ??Study status: ??STAT. ??Study completion: ??There were no complications. FINDINGS LEFT VENTRICLE: ??The cavity size is normal. Wall thickness is normal. Systolic function is normal. Wall motion is normal; there are no regional wall motion abnormalities. ?The ejection fraction was measured by single plane method of disks. The ejection fraction is 54%. The tissue Doppler parameters are abnormal. Left ventricular diastolic function parameters are normal for the patient's age. AORTIC VALVE: ??The annulus is normal-sized. The valve is trileaflet. The leaflets are normal thickness. ??Doppler: ?? No regurgitation. AORTA: ??Aortic root: The aortic root is normal in size. MITRAL VALVE: ??The annulus is normal-sized. The leaflets are normal thickness. ??Doppler: ?? Mild regurgitation. ?The valve area by pressure half-time is 4.2cm^2. The valve area index by pressure half-time is 2.35cm^2/m^2. ?The peak diastolic gradient is 4mm Hg. ATRIAL SEPTUM: ??Color doppler shows a trivial post procedure shunt. LEFT ATRIUM: ??The atrium is normal in size. RIGHT VENTRICLE: ??The cavity size is normal. Wall thickness is normal. Systolic function is normal. PULMONIC VALVE: ?? The annulus is normal-sized. The leaflets are normal thickness. ??Doppler: ?? Trivial regurgitation. TRICUSPID VALVE: ??The annulus is normal-sized. ??Doppler: ?? Trivial regurgitation. RIGHT ATRIUM: ??The atrium is normal in size. PERICARDIUM: ??There is no pericardial effusion. Measurements Left ventricle ? Value ?Ref ?Ventricular septum ?Value Ref BRIANA, LAX chord ? 4.4 ?? cm ? 3.8 - 5.2 ??IVS, ED ? 0.8 ?? cm 0.6 - 0.9 ESD, LAX chord ? 2.9 ?? cm ? 2.2 - 3.5 BRIANA/bsa, LAX chord ? 2.4 ?? cm/m^2 2.3 - 3.1 ??Right ventricle ? Value ??Ref ESD/bsa, LAX chord ? 1.6 ?? cm/m^2 1.3 - 2.1 ??BRIANA, LAX ?2.8 ?? cm ??--------- PW, ED, LAX ?0.7 ?? cm ? 0.6 - 0.9 BRIANA major ax, A4C ?6.8 ?? cm ? --------- ??Left atrium ? Value Ref ESD major ax, A4C ?6.0 ?? cm ? --------- ??AP dim, ES ?3.2 ?? cm 2.7 - 3.8 FS major axis, A4C ? 12 ?% ?--------- ??AP dim index ?1.8 ?? cm/m^2 ??1.5 - 2.3 BRIANA/bsa major ax, A4C ?3.8 ?? cm/m^2 --------- ??Area ES, A4C ?14 ?cm^2 ?<=20 ESD/bsa major ax, A4C ?3.3 ?? cm/m^2 --------- ??Area ES, A2C ?15 ?cm^2 ?--------- FARTUN, A4C ? 21.6 ??cm^2 ?? --------- ??Vol, S ?32 ?ml ??22 - 52 OSCAR, A4C ? 13.4 ??cm^2 ?? --------- ??Vol/bsa, S ?18 ?ml/mS 2 ?? 16 - 34 FAC, A4C ? 38 ?% ?--------- ??Vol, ES, 1-p A4C ?33 ?ml 22 - 52 PW, ED ? 0.7 ?? cm ? 0.6 - 0.9 ??Vol/bsa, ES, 1- p A4C ?18 ?ml/m^2 ??11 - 40 IVS/PW, ED ? 1.07 ? --------- ??Vol, ES, 1-p A2C ?37 ?ml 22 - 52 EDV ?85 ?ml ? 46 - 106 ?? Vol/bsa, ES, 1-p A2C ?21 ?ml/m^2 ??13 - 40 ESV ?25 ?ml ? 14 - 42 ?Vol, ES, 2- p ?35 ?ml --------- EF ? 54 ?% ?54 - 74 ?Vol/bsa, ES, 2-p ?19 ?ml/m^2 ??16 - 34 SV ? 55 ?ml ? --------- EDV/bsa ?47 ?ml/m^2 29 - 61 ?Mitral valve ?Value ??Ref ESV/bsa ?14 ?ml/m^2 8 - 24 ? Peak E ?1.06 ??m/sec ??--------- SV/bsa ? 30 ?ml/m^2 --------- ??Peak A ?0.57 ??m/sec ??--------- SV, 1-p A4C ?30 ?ml ? --------- ??Decel time ?176 ?? ms --------- SV/bsa, 1-p A4C ?17 ?ml/m^2 --------- ??PHT ? 52 ?ms ??--------- ESV, 2-p ? 26 ?ml ? 14 - 42 ?Peak grad, D ?4 ? mm Hg --------- ESV/bsa, 2-p ? 14 ?ml/m^2 8 - 24 ? Peak E/A ratio ?1.9 ??--------- E', lat rose mary, TDI ?(L) ??9.25 ??cm/sec >=10 ? MVA, PHT ?4.2 ?? cm^2 ??--------- E/e', lat rose mary, TDI ? 11 ? --------- ??MVA/bsa, PHT ?2.35 ??cm^2/m ^2 --------- E', med rose mary, TDI ? 9.03 ??cm/sec >=7 E/e', med rose mary, TDI ? 12 ? --------- ??Ascending aorta ? Value Ref E', avg, TDI ? 9.14 ??cm/sec --------- ??AAo AP diam, ED ? 2.9 ?? cm 1.9 - 3.5 E/e', avg, TDI ? 12 ? <=14 ? AAo AP diam/bsa, ED ? 1.6 ?? cm/m^2 ??1.0 - 2.2 Legend: (L) ??and ??(H) ??noe values outside specified reference range. Prepared and electronically signed by Jimi Samson MD 12/12/2019 09:39 ----- ??FINAL ??----- Performing Technologists: ??Shanique Peña Transcribed By : ??TP 12/12/2019 9:39 am Dictated By: ?JIMI ARGUETA MD Approved By : ? JIMI ARGUETA MD ??12/12/2019 9:39 am Procedure Note Jimi Samson MD - 12/12/2019 *[facility]* [address] [address] Transthoracic Echocardiogram (TTE) Patient: Krystle Retana Study Date/Time: Dec 12 2019 7:28AM : 1960 Ht/Wt: 167.6cm 71.2kg Age: 59 BSA/BMI: 1.8m^2 25.3kg/m^2 Gender: F Baseline BP: 126 / 66 Ordering Physician: Lee Felipe MD Referring Physician: Lee Felipe MD Attending Physician: Lee Felipe MD Diagnostic Physician: Jimi Samson MD Strings Teacher: Shanique Peña RDCS INDICA TIONS : Atrial fibrillation. POST ABLATION. STUDY CONCLUSIONS SUMMARY: 1. Left ventricle: The cavity size is normal. Wall thickness is normal. The ejection fraction was measured by single plane method of disks.The ejection fraction is 54%. 2. No prior study available for comparison. STUDY DATA: Procedure: Transthoracic echocardiography was performed. Image quality was good. M-mode, complete 2D, complete spectral Doppler, and color Doppler. Study status: STAT. Study completion: There wereno complications. FINDINGS LEFT VENTRICLE: The cavity size is normal. Wall thickness is normal. Systolic function is normal. Wall motion is normal; there are noregional wall motion abnormalities. The ejection fraction was measured bysingle plane method of disks. The ejection fraction is 54%. The tissue Doppler parameters are abnormal. Left ventricular diastolic function parameters are normal for the patient's age. AORTIC VALVE: The annulus is normal-sized. The valve is trileaflet. The leaflets are normal thickness. Doppler: No regurgitation. AORTA: Aortic root: The aortic root is normal in size. MITRAL VALVE: The annulus is normal-sized. The leaflets are normal thickness. Doppler: Mild regurgitation. The valve area by pressure half-time is 4.2cm^2. The valve area index by pressure half-time is 2.35cm^2/m^2. The peak diastolic gradient is 4mm Hg. ATRIAL SEPTUM: Color doppler shows a trivial post procedure shunt. LEFT ATRIUM: The atrium is normal in size. RIGHT VENTRICLE: The cavity size is normal. Wall thickness is normal. Systolic function is normal. PULMONIC VALVE: The annulus is normal-sized. The leaflets are normal thickness. Doppler: Trivial regurgitation. TRICUSPID VALVE: The annulus is normal-sized. Doppler: Trivial regurgitation. RIGHT ATRIUM: The atrium is normal in size. PERICARDIUM: There is no pericardial effusion. Measur ement s Left ventricle Value Ref Ventricular septumValue Ref BRIANA, LAX chord 4.4 cm 3.8 - 5.2 IVS, ED0.8 cm 0.6 - 0.9 ESD, LAX chord 2.9 cm 2.2 - 3.5 BRIANA/bsa, LAX chord 2.4 cm/m^2 2.3 - 3.1 Right ventricleValue Ref ESD/bsa, LAX chord 1.6 cm/m^2 1.3 - 2.1 BRIANA, LAX2.8 cm --------- PW, ED, LAX 0.7 cm 0.6 - 0.9 BRIANA major ax, A4C 6.8 cm --------- Left atriumValue Ref ESD major ax, A4C 6.0 cm --------- AP dim, ES3.2 cm 2.7 - 3.8 FS major axis, A4C 12 % --------- AP dim index1.8 cm/m^2 1.5 - 2.3 BRIANA/bsa major ax, A4C 3.8 cm/m^2 --------- Area ES, A4C14 cm^2 <=20 ESD/bsa major ax, A4C 3.3 cm/m^2 --------- Area ES, A2C15 cm^2 --------- FARTUN, A4C 21.6 cm^2 --------- Vol, S32 ml 22 - 52 OSCAR, A4C 13.4 cm^2 --------- Vol/bsa, S18 ml/mS 2 16 - 34 FAC, A4C 38 % --------- Vol, ES, 1-p A4C33 ml 22 - 52 PW, ED 0.7 cm 0.6 - 0.9 Vol/bsa, ES, 1-p A4C18 ml/m^2 11 - 40 IVS/PW, ED 1.07 --------- Vol, ES, 1-p A2C37 ml 22 - 52 EDV 85 ml 46 - 106 Vol/bsa, ES, 1-p A2C21 ml/m^2 13 - 40 ESV 25 ml 14 - 42 Vol, ES, 2-p35 ml --------- EF 54 % 54 - 74 Vol/bsa, ES, 2-p19 ml/m^2 16 - 34 SV 55 ml --------- EDV/bsa 47 ml/m^2 29 - 61 Mitral valveValue Ref ESV/bsa 14 ml/m^2 8 - 24 Peak E1.06 m/sec --------- SV/bsa 30 ml/m^2 --------- Peak A0.57 m/sec --------- SV, 1-p A4C 30 ml --------- Decel [id number] ms --------- SV/bsa, 1-p A4C 17 ml/m^2 --------- PHT52 ms --------- ESV, 2-p 26 ml 14 - 42 Peak grad, D4 mm Hg --------- ESV/bsa, 2-p 14 ml/m^2 8 - 24 Peak E/A ratio1.9 --------- E', lat rose mary, TDI (L) 9.25 cm/sec >=10 MVA, PHT4.2 cm^2 --------- E/e', lat rose mary, TDI 11 --------- MVA/bsa, PHT2.35 cm^2/m ^2 --------- E', med rose mary, TDI 9.03 cm/sec >=7 E/e', med rose mary, TDI 12 --------- Ascending aortaValue Ref E', avg, TDI 9.14 cm/sec --------- AAo AP diam, ED2.9 cm 1.9 - 3.5 E/e', avg, TDI 12 <=14 AAo AP diam/bsa, ED1.6 cm/m^2 1.0 - 2.2 Legend: (L) and (H) noe values outside specified reference range. Prepared and electronically signed by Jimi Samson MD 12/12/2019 09:39 ----- FINAL ----- Performing Technologists: Shanique Peña Transcribed By : TP 12/12/2019 9:39 am Dictated By: ELLIE, JIMI Bob MD Approved By : JIMI ARGUETA MD 12/12/2019 9:39 am Lee Felipe MD [facility] - [facility] * CD Advocate Procedure (12/11/2019 11:34 AM CDT) 12/11/2019 11:3 4 AM CDT Amna ROGERS - ADVOCATE - 01/06/2020 1:45 PM COLD ROLL CATCHER *[facility]* [address] [address] Transesophageal Echocardiogram (ANA) Patient: Krystle Retana ?Study Date/Time: ? Dec 11 2019 11:08AM ?FIN#: ?[id number] : ? 1960 ? Ht/Wt: Age: ? 59 ? BSA/BMI: Gender: ??F ?Baseline BP: Ordering Physician: ? Lee Felipe MD Referring Physician: ?Lee Felipe MD Attending Physician: ?Lee Felipe MD Performing Physician: ?? Lee Felipe MD Diagnostic Physician: ?? Lee Felipe MD Strings Teacher: ?Andreas Weiss RDCS INDICATIONS: ?? Atrial fibrillation. ??Ablation. STUDY CONCLUSIONS SUMMARY: ?? Left ventricle: The cavity size is normal. Wall thickness is normal. STUDY DATA: ?? Procedure: ??Initial setup. Surface ECG leads, blood pressure measurements, and pulse oximetric signals were monitored. ??Time out performed. Sedation. General anesthesia was administered by anesthesiology, Transesophageal echocardiography. An Adult 2D/3D transesophageal probe was inserted by the attending mirror fabrication supervisor. Time of probe insertion was 11:09. Images were obtained using a Susanna [id number] cardiac ultrasound machine. Image quality was good. The transesophageal probe was removed. Time of probe removal was 11:11. 2D and Color Doppler. Study status: ??Routine. FINDINGS LEFT VENTRICLE: ??The cavity size is normal. Wall thickness is normal. Systolic function is normal. AORTIC VALVE: ?? Structurally normal valve. The valve is trileaflet. ?? Cusp separation is normal. ??There is no evidence of a vegetation. ??Doppler: No regurgitation. AORTA: ??Aortic root: The aortic root is normal in size. MITRAL VALVE: ?? Structurally normal valve. ?? Leaflet separation is normal. There is no evidence of a vegetation. ??Doppler: ?? No regurgitation. ATRIAL SEPTUM: ??No defect or patent foramen ovale is identified. ??Echo contrast study following an increase in RA pressure induced by provocative maneuvers, shows no wskym-my-liec atrial level shunt. LEFT ATRIUM: ??Well visualized. The atrium is normal in size. ??There is no evidence of a thrombus in the atrial cavity or appendage. ??There is no evidence of a thrombus in the atrial cavity or appendage. No spontaneous echo contrast is observed. The appendage is well visualized and of normal size. Emptying velocity is normal. RIGHT VENTRICLE: ??The cavity size is normal. Wall thickness is normal. Systolic function is normal. VENTRICULAR SEPTUM: ?? Thickness is normal. ??Normal septal motion. Normal contour. ?There is no evidence of a ventricular septal defect. PULMONIC VALVE: ?Structurally normal valve. ?? Cusp separation is normal. There is no evidence of a vegetation. RIGHT ATRIUM: ??The atrium is normal in size. ??There is no evidence of a thrombus in the atrial cavity or appendage. Measurements Left ventricle ??Value EF Legend: (L) ??and ??(H) ??noe values outside specified reference range. Prepared and electronically signed by Lee Felipe MD 01/06/2020 13:44 ----- ??FINAL ??----- Performing Technologists: ??Andreas Weiss Transcribed By : ??TP 01/06/2020 1:44 pm Dictated By: ?LEE CHARLES MD Approved By : ? LEE CHARLES MD ??01/06/2020 1:44 pm Procedure Note Lee Felipe MD - 01/06/2020 *[facility]* [address] [address] Transesophageal Echocardiogram (ANA) Patient: Krystle Retana Study Date/Time: Dec 11 2019 11:08AM : 1960 Ht/Wt: Age: 59 BSA/BMI: Gender: F Baseline BP: Ordering Physician: Lee Felipe MD Referring Physician: Lee Felipe MD Attending Physician: Lee Felipe MD Performing Physician: Lee Felipe MD Diagnostic Physician: Lee Felipe MD Strings Teacher: Andreas Weiss [facility] INDICA TIONS : Atrial fibrillation. Ablation. STUDY CONCLUSIONS SUMMARY: Left ventricle: The cavity size is normal. Wall thickness is normal. STUDY DATA: Procedure: Initial setup. Surface ECG leads, bloodpressure measurements, and pulse oximetric signals were monitored. Time out performed. Sedation. General anesthesia was administered by anesthesiology, Transesophageal echocardiography. An Adult 2D/3D transesophageal probe was inserted by the attending mirror fabrication supervisor. Timeof probe insertion was 11:09. Images were obtained using a Susanna [id number] cardiac ultrasound machine. Image quality was good. The transesophageal probe was removed. Time of probe removal was 11:11. 2D and ColorDoppler. Study status: Routine. FINDINGS LEFT VENTRICLE: The cavity size is normal. Wall thickness is normal. Systolic function is normal. AORTIC VALVE: Structurally normal valve. The valve is trileaflet.Cusp separation is normal. There is no evidence of a vegetation. Doppler: No regurgitation. AORTA: Aortic root: The aortic root is normal in size. MITRAL VALVE: Structurally normal valve. Leaflet separation isnormal. There is no evidence of a vegetation. Doppler: No regurgitation. ATRIAL SEPTUM: No defect or patent foramen ovale is identified. Echo contrast study following an increase in RA pressure induced byprovocative maneuvers, shows no uynaz-jg-gyfx atrial level shunt. LEFT ATRIUM: Well visualized. The atrium is normal in size. There isno evidence of a thrombus in the atrial cavity or appendage. There is no evidence of a thrombus in the atrial cavity or appendage. No spontaneous echo contrast is observed. The appendage is well visualized and ofnormal size. Emptying velocity is normal. RIGHT VENTRICLE: The cavity size is normal. Wall thickness is normal. Systolic function is normal. VENTRICULAR SEPTUM: Thickness is normal. Normal septal motion. Normal contour. There is no evidence of a ventricular septal defect. PULMONIC VALVE: Structurally normal valve. Cusp separation isnormal. There is no evidence of a vegetation. RIGHT ATRIUM: The atrium is normal in size. There is no evidence of a thrombus in the atrial cavity or appendage. Measur ement s Left ventricle Value EF Legend: (L) and (H) noe values outside specified reference range. Prepared and electronically signed by Lee Felipe MD 01/06/2020 13:44 ----- FINAL ----- Performing Technologists: Andreas Weiss Transcribed By : GAL 01/06/2020 1:44 pm Dictated By: LEE CHARLES MD Approved By : LEE CHARLES MD 01/06/2020 1:44 pm Lee Felipe MD CV CARD SERVICES [facility] - [facility] * 2018 Novel Coronavirus (SARS-CoV-2) (12/10/2019 7:28 AM CDT) Pathologist [facility] SOURCE, 2019 NOVEL CORONAVIRUS (SARS-COV-2) Nasopharyngeal [facility] [place] Comment:NASOPHARYNGEAL SWAB SARS-CoV-2 by PCR NOT DETECTED NOT DETECTED [facility] [place] Comment: Pooled Sample. Negative for SARS-CoV-2 (2018-nCoV) nucleic acid in the specimen, consider other viruses. Negative results must be combined with clinical observations, patient history, and epidemiological information. This test is an [facility] LDT/EUA validated real-time PCR assays intended for the qualitative detection of SARS-CoV-2 (2018-nCoV) nucleic acid. ??Performance characteristics for the LDT/EUA test has been determined by [employer] and are incorporated as part of FDA Emergency Use Authorization (EUA). This test was performed by [employer] using the FDA cleared Emergency Use Authorization (EUA) assay. This laboratory is certified under the Clinical Laboratory Improvement Amendments (CLIA) as qualified to perform high complexity clinical laboratory testing. Isolation Guidelines [facility] [place] Comment: Do not use this test result as the sole decision-maker for discontinuing isolation, de-escalate to NonCOVID-19, droplet and contact isolation per the following guidelines: If a patient has met criteria below and tested negative for COVID-19, COVID isolation precautions may be de-escalated to Droplet and Contact precautions. The following criteria must be met before a patient can be removed from isolation At least 3 days (72 hours) since resolution of fever without the use of fever-reducing medications AND Significant improvement in respiratory symptoms (e.g., cough, shortness of breath) AND Negative COVID-19 Test ??This removes the obligation for N95 masks and eyewear protection. ??The rationale to continue Droplet and Contact precautions is to protect both patient and HCW from any other virus causing the patient's illness Check COVID-19 Toolkit for most up to date information: https://[email or web address]/giuaf-68-enwr/ Swab NASOPHARYNGEAL STRUCTURE / Unknown 12/10/2019 7:28 AM CDT 12/10/2019 4:30 PM CDT Lee Felipe MD [facility] DIAGN ORD ITM - [facility] [place] [address] [place] [address] Visit Diagnoses Diagnosis Start Date Encounter for preprocedural laboratory examination Pre-procedural laboratory examination 12/09/2019 Encounter for preprocedural laboratory examination Pre-procedural laboratory examination 12/10/2019 Atypical atrial flutter (CMD) Atrial flutter 01/14/2023 Atypical atrial flutter (CMD) Atrial flutter 08/15/2023 Care Teams Separations Scientist Relationship Specialty Start Date End Date Pcp, Verify PCP - General 07/17/23 Lee Felipe MD [address] [place] [id number] Internal Medicine - Clinical Cardiac Electrophysiology 07/17/23
--- OUTSIDE RECORDS SUMMARY | 2024-04-07 12:52 | XMS_ITS | Clinical Summary ---
Author Organization [facility] Address [address] [place] [address] Care Team Providers Care Baseboard Heating Installer Name Role Phone Andreas Souza MD Primary Care Provider [phone] Source Comments [facility],non-owned Affiliates and Associated Physician Practices is amultiple site organization consisting of ambulatory clinics and hospital sitesin [place], [place], [place] and [place]. This disclosure is being madepursuant to the Care Everywhere program and may not contain all information available regarding this patient. 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 (AF LURIA, FLUZONE TRIVALENT; 6MO+) (IIV3) 01/11/2016 Covid Moderna primary monova lent 12+ yr 0.5mL 06/20/2020,05/23/2020 INFLUENZA VACCINE 12/09/2018, 8,02/17/2017,2015,12/22/2013,02/23/2013,01/17/2012 INFLUENZA VACCINE, QUADR. (F LUZONE; FLULAVAL; FLUARIX; AFLURIA QUADRIVALENT; 6MO+), 0.5 ML (IIV4) 01/15/2020,12/09/2018 TDAP (7yrs+) 03/13/2017 Zoster Hzv Vacc Recombinant Inj Im 07/29/2018, iNFLUENZA VACCINE, RECOM-SUTTON, QUADR. (FLUBLOCK QUADRIVALENT; 18Y+) (RIV4) 01/30/2021 Family History Medical History Relation Name Comments Atrial Fibrillation Maternal Grandmother Autoimmune Disease Maternal Grandmother Relation Name Status Comments Maternal Grandmother Social History Tobacco Use Types Packs/Day Years [...] Mass Index 25.66 12/17/2023 12:56 PM CDT Plan of Treatment Upcoming Encounters Date Type Department Care Team (Late st Contact Info) Description 05/12/2024 9:15 AM CDT Office Visit [facility] - Orthopedics [address] [place] [address], [place] [phone] Lily Murphy MD [address] [place] [address] [address] DIV [place] [phone] 06/22/2024 1:20 PM CDT Office Visit [facility] - Rheumatology [address] [place] [address], [place] [phone] Heriberto Aburto MD [address] [place] [address] [address] [place] [address] Health Maintenance Due Date Last Done Comments COLOGUARD (AGES 45-75) - COLON CA SCREENING 1960 COLON MONITORING 1960 COLONOSCOPY - COLON CA SCREENING 1960 CT COLONOGRAPHY - COLON CA SCREENING 1960 Colorectal Cancer Screening 1960 FIT - COLON CA SCREENING 1960 FLEX SIG - COLON CA SCREENING 1960 LIPID TESTING 1960 PAP SMEAR 1960 HIV SCREENING 07/23/1975 HEPATITIS C SCREENING 07/18/1978 PNEUMOCOCCAL VACCINE 50+ (1 of 1 - PCV) 2010 COVID-19 VACCINE ( season) 2023 06/20/2020, 05/23/2020 INFLUENZA VACCINE (#1) 2023 , 01/30/2021, 01/15/2020, Additional history exists DEPRESSION SCREENING 03/04/2024 07/02/2023, 12/04/2022, 01/30/2022 MAMMOGRAM 10/16/2024 10/16/2022, 10/02, 10/12/2021, Additional history exists SCREENING FOR DIABETES 01/02/2027 , 12/03/2023, 05/09/2023, Additional history exists DTAP/TDAP/TD VACCINES (2 - Td or Tdap) 03/13/2027 03/13/2017 Respiratory Syncytial Virus (RSV) Vaccine Pt: or over 60 yrs (1 - 1-dose 75+ series) 07/23/2035 ZOSTER VACCINE Completed 07/29/2018, 07/23/2017 HEPATITIS B VACCINE Aged Out No longe r eligible based on patient's age to complete this topic HIB VACCINE Aged Out No longer eligi ble based on patient's age to complete this topic HPV VACCINE Aged Out No longer eligi ble based on patient's age to complete this topic MENINGOCOCCAL (Group B) VACCINE Aged Out No longer eligible based on patient's age to complete this topic MENINGOCOCCAL VACCINE Aged Out No nisha thom eligible based on patient's age to complete this topic Medical Devices Implanted Type Area Turntable Operator Device Identifier Shelf Expiration Date Model / Serial / Lot Sys Impl 4.75mm Speedbridge Swivelock Implanted:Qty: 1 on 10/16/2023 by Lily Murphy MD at [facility] Right: Shoulder [employer] [id number] 06/02/2027 AR-2600SB [facility] / / [id number] Swivelock Kntls 4.75mm Bc Implanted:Qty: 1 on 10/16/2023 by Lily Murphy MD at [facility] Right: Shoulder [employer] [id number] 03/03/2027 AR-2324KB CC / / Sys Fx Alex 4.75mm Mf Scrpn Swivelock Implanted:Qty: 1 on 10/16/2023 by Lily Murphy MD at [facility] Right: Shoulder [employer] [id number] 06/01/2025 AR-2324BC / / [id number] [employer] Button Implant System Implanted:Qty: 2 on 10/16/2023 by Lily Murphy MD at [facility] Right: Shoulder [id number] 04/03/2028 AR-3680 / / [id number] Procedures Procedure Name Priority Date/Time Associated Diagnosis [...] [facility] BUN/Creatinine Ratio SEE NOTE: 6 - (calc) [facility] Comment: ?? Not Reported: BUN [...] 29 U/L [facility] Comment: Test Performed at: [facility] [address] [place] [address] ??[phone] RAI BETANCOURT MD Blood BLOOD SPECIMEN / Unknown 01/03/2024 11:24 AM CDT 01/03/2024 11:24 AM CDT Heriberto Aburto MD LAB - CHEMISTRY ORDE RABLES [facility] [address] [place] [address] from Last 3 Months or Most Recently Relevant to Health Maintenance Advance Directives * Full Code (Latest Code Status on File) Date Activated Date Inactivated Comments 01/16/2023 10:43 PM 01/18/2023 2:58 PM Care Teams Baseboard Heating Installer Relationship Specialty Start Date End Date Andreas Souza MD [address] [place] [address] PCP - General Family Medicine 12/04/22
--- NOTE | 2024-04-07 18:03 | WPDPFTINT ---
PFT Procedure Performed PFT Procedure Performed Plethysmography (Lung Vol) Diffusing Cap (DLCO) Flow Vol Loop Spirometry w/o Bronchodil PFT Interpretation This is a pulmonary function test with spirometry, plethysmography and diffusing capacity. The test was performed and results interpreted in accordance with the 2019 and 2005 ATS/ERS Task Force guidelines respectively using the Global Lung Function Initiative-2012 reference equations. Patient demonstrated good effort and cooperation. Reproducibility criteria were met. The quality of the spirometry maneuver was Grade A. Findings: Spirometry: The contour the inspiratory and expiratory flow tracing are normal. The FVC is 3.64 L, 110% predicted. The FEV1 is 2.72 L, 105% predicted. The FEV1: FVC ratio 75%. Plethysmography: The total lung capacity is 6.52 L, 121% predicted. The functional residual capacity is 4.31 L, 141% predicted. The residual volume is 2.85 L, 132% predicted. The residual volume: Total lung capacity ratio is 44%. Diffusing capacity: The diffusing capacity unadjusted for hemoglobin and carboxyhemoglobin is 15.6, 70% predicted. The diffusing capacity adjusted for alveolar volume is 3.25, 70% predicted. In comparison to previous pulmonary function testing on 12/01/2021 the FVC is unchanged from 3.49 L to 3.64 L. The FEV1 is unchanged from 2.62 L to 2.72 L. The total lung capacity is increased from 5.65 L to 6.52 L. The functional residual capacity is increased from 3.24 L to 4.31 L. The residual volume is increased from 1.72 L to 2.85 L. The diffusing capacity unadjusted for hemoglobin and carboxyhemoglobin is unchanged from 16.1 to 15.6. The diffusing capacity adjusted for alveolar volume is unchanged from 3.34 to 3.25. Impression: The spirometry is normal without evidence of an obstructive abnormality. The total lung capacity is increased with a normal residual volume: Total lung capacity ratio consistent with large lungs. The diffusing capacity is normal. In comparison to previous pulmonary function testing on 12/01/2021 there was a greater than anticipated time dependent increase in the total lung capacity, functional residual capacity and residual volume with no significant change in the FVC, FEV1 or diffusing capacity. Clinical correlation is recommended.
== END 2024-04-07 12:45 | disposition home or self-care (01) ==
PROVIDERS: PCP Family Medicine; Visit Provider Internal Medicine Rheumatology
DX: M35.1 Other overlap syndromes (principal); I35.8 Other nonrheumatic aortic valve disorders; I34.0 Nonrheumatic mitral (valve) insufficiency
CPT/HCPCS: 93306; 94375; 94726; 94729

== ENCOUNTER 2024-06-17 00:24 | Day surgery (SDC) | payer OTHER, SELFPAY ==
[2024-06-10 14:46] VITALS: BMI 24.7
--- OUTSIDE RECORDS SUMMARY | 2024-06-17 00:26 | XMS_ITS | Encounter Summary ---
Author Organization [facility] Address [address] [place] [address] Care Team Providers Care Pro Shop Attendant Name Role Phone Andreas Souza MD Primary Care Provider [phone] Encounter Details Date Type Department Care Team [...] on file Legal Sex Female 5:07 AM OPERATIONS AND MAINTENANCE SUPERVISOR Gender Identity Not on file Sexual Orientation Not on file documented as of this encounter Plan of Treatment Upcoming Encounters Date Type Department Care Team (Late st Contact Info) Description 02/08/2025 2:50 PM OPERATIONS AND MAINTENANCE SUPERVISOR Appointment [facility] Sarath Arias [address] [place] [phone] Edyta Huerta, ROVING CARRIER [address] [place] [address] 02/08/2025 3:45 PM OPERATIONS AND MAINTENANCE SUPERVISOR Office Visit [facility] Breast Surgery Sarath Hugo [address] [place] [address] Edyta Huerta, ROVING CARRIER [address] [place] [address] documented as of this encounter Visit Diagnoses Diagnosis Anal and rectal polyp- Primary documented in this encounter Care Teams Pro Shop Attendant Relationship Specialty Start Date End Date Andreas Souza MD [address] [facility] [address] [place] [phone] PCP - General Family Practice 02/05/24 documented as of this encounter
--- OUTSIDE RECORDS SUMMARY | 2024-06-17 00:26 | XMS_ITS | Clinical Summary ---
Author Organization [facility] Address [address] [place] [address] Phone Care Team Providers Care Lead Material Handler Name Role Phone Andreas Souza MD Primary Care Provider [phone] Allergies Active Allergy Reactions Criticality Noted Date [...] Hardwick MD Referring Provider: Alina Urrutia MD [address] [place] [address] Other: Dr Victorina Nguyen Problem Noted Date [...] Encounters Date Type Department Care Team Description 04/21/2024 External Device Data STL ABSTRACTION Provider, Abstract 04/07/2024 External Device Data STL ABSTRACTION Provider, Abstract 03/31/2024 External Device Data STL ABSTRACTION Provider, Abstract 03/25/2024 External Device Data STL ABSTRACTION Provider, Abstract 03/24/2024 External Device Data STL ABSTRACTION Provider, Abstract from Last 3 Months Family History Medical [...] on file Legal Sex Female 5:07 AM ARTIFICIAL LIMB FITTER Gender Identity Not on file Sexual Orientation Not on file Occupation Industry Job Start Date Job End Date Not on file Not on file Not on file Not on file Not on file Not on file Not on file Not on file Last Filed Vital Signs Vital Sign Reading Time Taken Comments Blood Pressure 140/81 02/05/2024 3:37 PM ARTIFICIAL LIMB FITTER Pulse 71 02/05/2024 3:37 PM ARTIFICIAL LIMB FITTER Temperature 36.6 C (97.8 F) 10/12/2021 1:26 PM CDT Respiratory Rate - - Oxygen Saturation 99% 10/12/2021 1:26 PM CDT Inhaled Oxygen Concentration - - Weight 72.5 kg (159 lb 12.8 oz) 02/05/2024 3:37 PM ARTIFICIAL LIMB FITTER Height 167.6 cm (5' 6 ) 02/05/2024 3:37 PM ARTIFICIAL LIMB FITTER Body Mass Index 25.79 02/05/2024 3:37 PM ARTIFICIAL LIMB FITTER Plan of Treatment Upcoming Encounters Date Type Department Care Team (Late st Contact Info) Description 02/08/2025 2:50 PM ARTIFICIAL LIMB FITTER Appointment [facility] [address] [place] [address] Edyta Huerta, BUSINESS PERFORMANCE ADVISOR [address] [place] [address] 02/08/2025 3:45 PM ARTIFICIAL LIMB FITTER Office Visit [facility] Darvin Arias [address] [place] [address] Edyta Huerta, BUSINESS PERFORMANCE ADVISOR [address] [place] [address] Health Maintenance Due Date Last Done Comments Pre-Diabetes and Diabetes Screening 1960 HPV/Cotest (21-29) 1981 CERVICAL CANCER SCREENING 1990 HPV/Cotest (30-65) 1990 PAP SMEAR 1990 FIT-DNA Q 3 years 2005 FIT/FOBT [...] OR WO CAD Routine 02/05/2024 3:20 PM ARTIFICIAL LIMB FITTER Visit for screening mammogram from Last 3 Months or Most Recently Relevant to Health Maintenance Results * MAMMO SCRN BILAT 3D ELINA W OR WO CAD (02/05/2024 3:20 PM ARTIFICIAL LIMB FITTER) Anatomical Region Laterality Modality Breast Bilateral Mammography 02/05/2024 3:20 PM ARTIFICIAL LIMB FITTER Impressions 02/05/2024 4:33 PM ARTIFICIAL LIMB FITTER IMPRESSION: 1. No concerning findings. OVERALL FINAL ASSESSMENT: BI-RADS CATEGORY 1 - Negative. RECOMMENDATIONS: 1. Recommend annual mammography. DICTATION LOCATION: [facility] Narrative 02/05/2024 4:33 PM ARTIFICIAL LIMB FITTER BILATERAL SCREENING DIGITAL MAMMOGRAM WITH 3D TOMOSYNTHESIS [...] architectural distortion are identified in either breast. Procedure Note Andreas Barker MD - 02/05/2024 [...] Ayla l Result from Last 3 Months or Most Recently Relevant to Health Maintenance Insurance [employer] [facility] Weddingful [id number] Care Teams Lead Material Handler Relationship Specialty Start Date End Date Andreas Souza MD [address] [facility] [address] [place] [address] PCP - General Family Practice 02/05/24
--- OUTSIDE RECORDS SUMMARY | 2024-06-17 00:26 | XMS_ITS | Encounter Summary ---
Author Organization [facility] Address [facility] [place] [address] Care Team Providers Care Excelsior Machine Feeder Name Role Phone Leigh Ann Saucedo NP Primary Care Provider Aide Carson NP Primary Care Provider Kishor Hassan MD Primary Care Provider [phone] Pat Cazares MERCHANDISE CLERK Primary Care Provider [phone] Encounter Details Date Type Department Care Team (Late st Contact Info) Description 04/15/2013 Abstract [facility] CONVERSION [address] [place], [place] [id number] , Alexandra Willson MD Social History Tobacco Use Types Packs/Day [...] on filedocumented in this encounter Care Teams Excelsior Machine Feeder Relationship Specialty Start Date End Date Leigh Ann Saucedo NP PCP - General Nurse Practitioner Family 01/08/18 11/05/19 Aide Kelly NP PCP - General NURSE PRACTITIONER 11/06/19 06/05/20 Kishor Hunt MD PCP - General INTERNAL MEDICINE 06/06/20 07/11/21 Pat Cazares NP [address] [place] [address] PCP - General NURSE PRACTITIONER 07/21/21 documented as of this encounter
--- OUTSIDE RECORDS SUMMARY | 2024-06-17 00:26 | XMS_ITS | Encounter Summary ---
Author Organization [facility] Address [address] Rivas: [place] [address] Care Team Providers Care Wildlife Officer Name Role Phone Andreas Souza MD Primary Care Provider [phone] Encounter Details Date Type Department Care Team (Late st Contact Info) Description 10/14/1990 Outpatient Historical Pancho Maurice MD [address] [address] Social History Tobacco Use Types Packs/Day Years Used Date Smoking Tobacco: Never Assessed Comments Unknown Sex and Gender Information Value Date Recorded Sex Assigned at Not on file Legal Sex Female 5:07 AM REPORT PROGRAMMER Gender Identity Not on file Sexual Orientation Not on file documented as of this encounter Plan of Treatment Upcoming Encounters Date Type Department Care Team (Late st Contact Info) Description 02/08/2025 2:50 PM REPORT PROGRAMMER Appointment [facility] [address] [place] [address] Edyta Huerta, CARDIOVASCULAR SPECIALIST [address] [place] [address] 02/08/2025 3:45 PM REPORT PROGRAMMER Office Visit [facility] [address] [facility] [place] [address] Edyta Huerta, KIZZY [address] [place] [address] documented as of this encounter Visit Diagnoses Not on filedocumented in this encounter Care Teams Wildlife Officer Relationship Specialty Start Date End Date Andreas Souza MD [address] [facility] [address] [place] [address] PCP - General Family Practice 02/05/24 documented as of this encounter
--- OUTSIDE RECORDS SUMMARY | 2024-06-17 00:26 | XMS_ITS | Clinical Summary ---
Author Organization [facility] [employer] Address [address] [place] [address] Care Team Providers Care Deck Mate Name Role Phone Andreas Souza MD Primary Care Provider [phone] Source Comments [facility],non-owned Affiliates and Associated Physician Practices is amultiple site organization consisting of ambulatory clinics and hospital sitesin [place], [place], [place] and [place]. This disclosure is being madepursuant to the Care Everywhere program and may not contain all information available regarding this patient. Last updated 17.[facility] [employer] Allergies Active Allergy Reactions Criticality Noted Date Comments Adhesive Sensitivity Rash Medium 10/08/2013 Amoxicillin Diarrhea Low 10/08/2013 Azithromycin Diarrhea Low 01/03/2019 Warfarin Rash Medium 10/08/2013 Medications * Be aware that medications may not be up to date on this document. Alwaysverify current medications with the patient. Biotin 1000 MCG Take 2 (two) tablets by mouth 2 times daily 12/25/19 15 Active dicyclomine (BENTYL) 10 MG capsule Take 1 (one) capsule by mouth 4 times daily as needed after meals/at bedtime 09/07/19 11 Active vitamin C (ASCORBIC ACID) 1000 MG tablet Take 1 (one) tablet by mouth 2 times daily 12/25/19 15 Active vitamin D3-cholecalcifero l (CHOLECACIFEROL) 1000 UNITS tablet Take 1 (one) tablet by mouth 2 times daily 04/14/19 14 Active cycloSPORINE (RESTASIS) 0.05 % ophthalmic suspension 1 (one) drop by Ophthalmic route 2 times daily 04/14/19 14 Active metoprolol succinate XL 24hr (TOPROL XL) 25 MG tablet Take 0.5 (one-half) tablet by mouth once daily 09/07/19 20 Active Probiotic Product (ACIDOPHILUS/GOAT MILK) CAPS Take 1 capsule by mouth once daily Active lisinopril (Prinivil; Zestril) 10 MG tablet Take 1 (one) tablet by mouth once daily 01/20/20 22 Active hydroxychloroquin e (Plaquenil) 200 MG tabletIndications :Sjogren's syndrome, with unspecified organ involvement (HCC) TAKE 1 & 1/2 (ONE & ONE-HALF) TABLETS BY MOUTH ONCE DAILY 135 tablet 3 09/30/19 24 Active bismuth subsalicylate (Pepto-Bismol;Shiv pectate) 262 MG/15ML suspension Take 262 mg by mouth every 1 hour as needed Active acetaminophen (Tylenol) 500 MG tablet Take 2 (two) tablets by mouth 3 times daily Maximum allowable Acetaminophen amount = 4 Grams (4000 mg) / 24 hours. 10/16/19 24 Active Additional Information Patient taking differently:1,000 mg [...] Encounters Date Type Department Care Team Description 06/15/2024 Orders Only [facility] - Orthopedic Surgery [address] [address] Lily Murphy MD Lumbar pain 05/12/2024 10:03 AM CDT - 05/12/2024 11:59 PM CDT Hospital Encounter [facility] DIAGNOSTIC RAD OP [address] [place] [address] Lily Murphy MD Discharge Disposition: Home or Self Care 05/12/2024 9:15 AM T Office Visit [facility] - Orthopedics [address] [facility] [place] [address] Lily Murphy MD 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 [...] Date Recorded Patient Health Questionnaire-2 Score 0 05/12/2024 Comments No Sex and Gender Information Value Date Recorded Sex Assigned at Not on file Legal Sex Female 5:04 AM DRESS CAP MAKER Gender Identity Not on file Sexual Orientation Not on file Last Filed Vital Signs Vital Sign Reading Time Taken Comments Blood Pressure 121/85 12/17/2023 12:56 PM CDT Pulse 77 12/17/2023 12:56 PM CDT Temperature 36.7 C (98 F) 12/17/2023 12:56 PM CDT Respiratory Rate 16 [...] Care Team (Late st Contact Info) Description 06/22/2024 10:45 AM CDT [facility] [address] [place] [address], [place] [address] Lily Murphy MD [facility] [facility] [address] [place] [address] Aarti Cheatham PA-C [address] [place] [address] 06/22/2024 1:20 PM CDT Office Visit [facility] - Rheumatology [address] [place] [address], [facility] [place] [address] Lily Murphy MD [facility] [facility] [address] [place] [address] Heriberto Aburto MD [address] [facility] [address] [place] [address] Health Maintenance Due Date Last [...] of 1 - PCV) 2010 COVID-19 VACCINE (3 - season) 2023 06/20/2020, 05/23/2020 INFLUENZA VACCINE (Season Ended) 2024 01/19/2022, 01/30/2021, 01/15/2020, Additional history exists MAMMOGRAM 02/04/2026 02/05/2024, 06/2023, 10/16/2022, Additional history exists SCREENING FOR DIABETES 01/02/2027 , 12/03/2023, 05/09/2023, Additional history exists DTAP/TDAP/TD VACCINES (2 - Td or Tdap) 03/13/2027 03/13/2017 Respiratory Syncytial Virus (RSV) Vaccine Pt: or over 60 yrs (1 - 1-dose 75+ series) 07/23/2035 ZOSTER VACCINE Completed 07/29/2018, 07/23/2017 DEPRESSION SCREENING Completed 05/12/2024, 07/02/2023, 12/04/2022, Additional history exists HEPATITIS B VACCINE Aged Out No longe r eligible based on patient's age to complete this topic HIB VACCINE Aged Out No longer eligi ble based on patient's age to complete this topic HPV VACCINE Aged Out No longer eligi ble based on patient's age to complete this topic MENINGOCOCCAL (Group B) VACCINE SHARED DECISION-MAKING Aged Out No longer eligible based on patient's age to complete this topic MENINGOCOCCAL GROUPS A/C/Y/W VACCINE Aged Out No longer eligible based on patient's age to complete this topic Medical Devices Implanted Type Area Tobacco Stripper Hand Device Identifier Shelf Expiration Date Model / Serial / Lot Sys Impl 4.75mm Speedbridge Swivelock Implanted:Qty: 1 on 10/16/2023 by Lily Murphy MD at [facility] Right: Shoulder [employer] [id number] 06/02/2027 AR-2600SB S-10 / / [id number] Swivelock Kntls 4.75mm Bc Implanted:Qty: 1 on 10/16/2023 by Lily Murphy MD at [facility] Right: Shoulder [employer] [id number] 03/03/2027 AR-2324KB CC / / Sys Fx Alex 4.75mm Mf Scrpn Swivelock Implanted:Qty: 1 on 10/16/2023 by Lily Murphy MD at [facility] Right: Shoulder [employer] [id number] 06/01/2025 AR-2324BC CS / / [id number] Fbertak Button Implant System Implanted:Qty: 2 on 10/16/2023 by Lily Murphy MD at [facility] Right: Shoulder [id number] 04/03/2028 AR-3680 / / [id number] Procedures Procedure Name Priority Date/Time Associated Diagnosis Comments XR LUMBAR SP FLEX EXT 2 OR 3VW Routine 05/12/2024 10:08 AM CDT Lumbar pain COMPREHENSIVE METABOLIC PANEL Routine 01/03/2024 11:24 AM CDT Sjogren's syndrome, with unspecified organ involvement from Last 3 Months or Most Recently Relevant to Health Maintenance Results * XR Lumbar Sp FLex Ext 2 or 3Vw (05/12/2024 10:08 AM CDT) Anatomical Region Laterality Modality Spine Digital Radiogra phy 05/13/2024 5:21 PM CDT Impressions 05/13/2024 5:22 PM CDT IMPRESSION: Moderate lumbar spondylosis. > Interpreting Provider: Kirill Aguilar MD on 05/13/2024 5:22 PM Narrative 05/13/2024 5:22 PM CDT PROCEDURE: XR LUMBAR SP FLEX EXT 2 OR 3VW DATE/TIME OF EXAM: 05/12/2024 10:09 AM CLINICAL INFORMATION: None relevant/not provided if blank. Indication: M54.50: Lumbar pain Additional History: COMPARISON: 01/30/2022 TECHNIQUE: FINDINGS: The lumbar lordosis is normal. There is grade 1 anterolisthesis at L4-5 which does not change significantly with flexion or extension. There is moderate multilevel degenerative disc and joint disease. Procedure Note Kirill Aguilar MD - 05/13/2024 PROCEDURE: XR LUMBAR SP FLEX EXT 2 OR 3VW DATE/TIME OF EXAM: 05/12/2024 10:09 AM CLINICAL INFORMATION: None relevant/not provided if blank. Indication: M54.50: Lumbar pain Additional History: COMPARISON: 01/30/2022 TECHNIQUE: FINDINGS: The lumbar lordosis is normal. There is grade 1 anterolisthesis at L4-5 which does not change significantly with flexion or extension. There is moderate multilevel degenerative disc and joint disease. IMPRESSION: Moderate lumbar spondylosis. > Interpreting Provider: Kirill Aguilar MD on 05/13/2024 5:22 PM Lily Murphy MD DIAGNOSTIC IMAGING ORDERABLES Fi nal Result * COMPREHENSIVE METABOLIC PANEL (01/03/2024 11:24 AM CDT) Glucose 90 65 - 99 mg/dL [facility] Comment: Fasting reference interval BUN 14 7 - 25 mg/dL [facility] Creatinine 0.90 0.50 - 1.05 mg/dL [facility] eGFR by Cystatin C 72 > OR = 60 mL/min/1. 73m2 [facility] BUN/Creatinine Ratio SEE NOTE: 6 - 22 (calc) [facility] Comment: Not Reported: BUN and Creatinine are within reference range. Sodium 135 135 - 146 mmol/L [facility] [...] 29 U/L [facility] Comment: Test Performed at: [facility] [place] [address] [address] RAI BETANCOURT MD Blood BLOOD SPECIMEN / Unknown 01/03/2024 11:24 AM CDT 01/03/2024 11:24 AM CDT Heriberto Aburto MD LAB - CHEMISTRY ORDERABLES Final Result Performing Organization Address City/State/[facility] Phone Number [facility] [address] [place] [address] from Last 3 Months or Most Recently Relevant to Health Maintenance Insurance [facility] Advance Directives * Full Code (Latest Code Status on File) Date Activated Date Inactivated Comments 01/16/2023 10:43 PM 01/18/2023 2:58 PM Care Teams Deck Mate Relationship Specialty Start Date End Date Andreas Souza MD [address] [facility] [address] [place] [address] PCP - General Family Medicine 12/04/22
--- OUTSIDE RECORDS SUMMARY | 2024-06-17 00:26 | XMS_ITS | Clinical Summary ---
Author Organization [facility] Address [address] [place] [address] Care Team Providers Care Sales Assistant Institutional Sales Name Role Phone Pat Cazares NP Primary Care Provider [phone] Allergies Active Allergy Reactions Criticality Noted Date [...] of left side 07/05/2020 Paroxysmal atrial fibrillation ([facility]) 01/03/2020 Patellofemoral pain syndrome of left knee 2017 Irritable bowel syndrome 04/14/2013 Overview (01/09/2018): Annotation - 01Jun2014: typically constipation-predominant; recently explosive diarrhea intermittently after eating - noted especially when eating out Sjogrens syndrome ([facility]) 04/14/2013 Varicose veins of right lower extremity with inf lammation 04/14/2013 Arthralgia of multiple sites 10/30/2011 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 Primary hypertension 10/30/2011 Family history of breast cancer 12/30/2009 Resolved Problems Problem Noted Date Diagnosed Date Resolved Date Perimenopausal vasomotor symptoms 04/14/2013 02/07/2021 Immunizations Immunization Administration Dates Next Due COVID-19 Vaccine (Generic) 05/23/2020 Influenza (Generic) 01/30/2021, 8,02/17/2017,2015,02/23/2013,01/17/2012 Influenza Adult (Generic) 01/15/2020,12/09/2018, 12/22/2013 MODERNA COVID-19 [...] 79 07/24/2021 1:56 PM CDT Temperature 37.5 C (99.5 F) 07/24/2021 1:56 PM CDT Respiratory Rate 18 07/24/2021 1:56 PM CDT Oxygen Saturation 100% 07/24/2021 1:56 PM CDT Inhaled Oxygen Concentration - - Weight 73 kg (161 lb) 07/24/2021 1:56 PM CDT Height 167.6 cm (5' 6 ) 07/24/2021 1:56 PM CDT Body Mass Index 25.99 07/24/2021 1:56 PM CDT Plan of Treatment Health Maintenance Due Date Last Done Comments Cervical Cancer Screening Pa p Smear (Age 30 to 64) Every 3 Years 1960 Annual Physical 07/23/1963 Hepatitis C 1978 Cervical Cancer Screening Pa p with HPV Testing (Age 30 to 64) Every 5 Years 1990 Cervical Cancer Screening wi th HPV 1990 Pneumococcal Vaccine: 50+ Years (1 of 1 - PCV) 2010 RSV Immunization or 60+ Years (1 - Risk 60-74 years 1-dose series) 2020 Mammogram Screening 10/13/2023 10/12/2021 COVID-19 Vaccine (4 - 2023-2 5 season) 2023 06/20/2020, 05/23/2020, 05/23/2020 PHQ-2 (Physician [place]) 03/04/2024 Colorectal Cancer Screening Colonoscopy (10 Years) 11/29/2025 11/30/2015 DTaP, Tdap and Td Vaccines ( 2 - Td or Tdap) 03/13/2027 03/13/2017 Zoster Vaccines Completed 07/30/2018, 07/23/2017 Meningococcal B Vaccine Aged Out No l onger eligible based on patient's age to complete this topic Meningococcal Vaccine Aged Out No nisha thom eligible based on patient's age to complete this topic RSV Immunizations Under 20 Months Aged Out No longer eligible b ased on patient's age to complete this topic [...] CDT Documented hx of procedure Procedure Note , Generic ConversionMD - 01/05/2018 Documented hx of procedure us Generic Conversion Md [facility] PROCEDURE ORDERABLES Final Result [facility] TO EPIC CONVERSION from Last 3 Months or Most Recently Relevant to Health Maintenance Insurance [facility] Care Teams Sales Assistant Institutional Sales Relationship Specialty Start Date End Date Pat Cazares NP [address] [place] [address] PCP - General NURSE PRACTITIONER 07/21/21
[2024-06-17 10:25] VITALS: BP 139/70; PULSE 67; RESP 18; TEMP 36.3; O2SAT 100; BMI 24.7
--- NOTE | 2024-06-17 10:55 | WPDANESEPPF ---
Anes - Initial Pre Proc Eval Procedure: Operation Date: 06/17/24 11:30 Proposed Procedures p Screening Colonoscopy - Reji Roberts MD Date/Time: 06/17/24 10:55 Surgeon: Reji Roberts MD Pre Op Diagnosis: screening Patient Data Age: 63 Gender: F Height: 1.68 m Weight: 69.7 kg Last Vital Signs Temp 36.3 C L 06/17/24 10:25 Pulse 67 06/17/24 10:25 Resp 18 06/17/24 10:25 BP 139/70 06/17/24 10:25 Pulse Ox 100 06/17/24 10:25 O2 Del Method Room Air 06/17/24 10:25 Allergies Allergy/AdvReac Type Severity Reaction Status Date / Time warfarin Allergy Other Verified 06/17/24 10:24 nitrofurantoin (From AdvReac Intermediate Nausea and Verified 06/17/24 10:24 Macrobid) Vomiting Home Medications ?Medication ?Instructions ?Recorded ?Confirmed ?Type cyclosporine 0.05 % eye drops in a 1 drp EACH EYE BID 07/17/21 06/10/24 History dropperette (Restasis) hydroxychloroquine 200 mg tablet 200 mg PO DAILY 07/17/21 06/10/24 History metoprolol succinate 25 mg 25 mg PO DAILY 07/17/21 06/17/24 History tablet,extended release 24 hr cyclobenzaprine 5 mg tablet 5 mg PO TID PRN muscle spasm #60 06/03/23 06/10/24 Rx tabs lisinopril 10 mg tablet 10 mg PO DAILY #90 tabs 02/27/24 06/10/24 Rx Patient hx anesthesia problems: none Family hx anesthesia problems: none Results Review: All pre-operative results and documents have been reviewed as part of the pre-operative evaluation. 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 Code status: Full code. Smoking status: Never smoker Second hand tobacco smoke exposure: No Alcohol intake: never Substance use: never Substance use type: does not use Do You Feel Safe in your Home?: Yes Lack of Transportation: No Lack of Food: Never True Current Housing: I Have Housing Concerned About Future Housing: No Difficulty Paying Gas/Electric Bills: No Difficulty Paying for Meds: No Currently Unemployed: No Education: Decline to Answer Difficulty w/ Childcare or Family Care: No Living arrangements: with family Occupation/Education: unemployed Gender identity (if verbalized by the patient): Female Sexual Orientation (if Verbalized by the Patient): Straight or Heterosexual Spiritual care concerns: No Anes - Eval Final PreProcedure Day of Procedure 06/17/24 10:55 Patient weight: normal Heart: regular rate and rhythm Lungs: clear to auscultation Airway: Mallampati scale class 1 Neurological: alert and oriented Last oral intake: >/= 8 hours ASA classification: III Emergent: no Anesthetic plan: proceed Anesthesia type and monitoring: general GIVS and standard monitoring Results Review: All pre-operative results and documents have been reviewed as part of the pre-operative evaluation. Informed Consent: The patient's anesthetic plan and its attendant risks and benefits were discussed with the patient/family/POA. Questions were solicited and answers provided to the satisfaction of the patient/family/POA.
[2024-06-17] MEDS: LACTATED RINGERS 1,000 ML 150 ML IV CONT (10:56)
--- NOTE | 2024-06-17 11:09 | PM.IMHP ---
H&P: HPI History of Present Illness Date/Time: 06/17/24 11:09 Chief Complaint: Diarrhea -abdominal discomfort Narrative: the patient has a diagnosis of irritable bowel syndrome with alternating diarrhea and constipation for several years. However, she has noticed that her pattern has changed having clear predominance of diarrhea associated with crampy lower abdominal pain. She is referred for colonoscopy. 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 Code status: Full code. Smoking status: Never smoker Second hand tobacco smoke exposure: No Alcohol intake: never Substance use: never Substance use type: does not use Do You Feel Safe in your Home?: Yes Lack of Transportation: No Lack of Food: Never True Current Housing: I Have Housing Concerned About Future Housing: No Difficulty Paying Gas/Electric Bills: No Difficulty Paying for Meds: No Currently Unemployed: No Education: Decline to Answer Difficulty w/ Childcare or Family Care: No Living arrangements: with family Occupation/Education: unemployed Gender identity (if verbalized by the patient): Female Sexual Orientation (if Verbalized by the Patient): Straight or Heterosexual Spiritual care concerns: No Meds Home Medications and Allergies Home Medications ?Medication ?Instructions ?Recorded ?Confirmed ?Type cyclosporine 0.05 % eye drops in a 1 drp EACH EYE BID 07/17/21 06/10/24 History dropperette (Restasis) hydroxychloroquine 200 mg tablet 200 mg PO DAILY 07/17/21 06/10/24 History metoprolol succinate 25 mg 25 mg PO DAILY 07/17/21 06/17/24 History tablet,extended release 24 hr cyclobenzaprine 5 mg tablet 5 mg PO TID PRN muscle spasm #60 06/03/23 06/10/24 Rx tabs lisinopril 10 mg tablet 10 mg PO DAILY #90 tabs 02/27/24 06/10/24 Rx Allergies Allergy/AdvReac Type Severity Reaction Status Date / Time warfarin Allergy Other Verified 06/17/24 10:24 nitrofurantoin (From AdvReac Intermediate Nausea and Verified 06/17/24 10:24 Macrobid) Vomiting Vital Signs Vital Signs - 24 hr 06/17/24 10:25 Temperature 97.4 F L Pulse Rate 67 Respiratory Rate 18 Blood Pressure 139/70 Pulse Oximetry 100 Oxygen Delivery Room Air Exam Const: General: cooperative and healthy appearing Resp: Effort & Inspection: normal respiratory effort and able to speak in complete sentences Auscultation: clear to auscultation bilaterally Cardio: Rate: regular rate Rhythm: regular rhythm GI: Inspection: normal to inspection GI Palp: No No hepatosplenomegaly present Auscultation: normal bowel sounds Rectal Exam: deferred Skin: General skin exam: normal color Psych: Appearance: grossly normal Mental Status: mental status grossly normal Assessment and Plan Assessment and plan (1) Diarrhea: Code(s): R19.7 - Diarrhea, unspecified Status: Acute Assessment and Plan: The patient is deemed a good candidate for the procedure. Consent signed. Will proceed. Will obtain colonic biopsies to rule out microscopic colitis.
[2024-06-17 11:35] VITALS: BP 121/64; PULSE 62; RESP 18; O2SAT 100
[2024-06-17 11:45] VITALS: BP 128/67; PULSE 64; RESP 11; O2SAT 100
[2024-06-17 11:55] VITALS: BP 124/46; PULSE 64; RESP 15; O2SAT 100
== END 2024-06-17 12:17 | disposition home or self-care (01) ==
PROVIDERS: PCP Family Medicine; Referring Provider Family Medicine; Visit Provider Internal Medicine Gastroenterology
PROC: 0DJD8ZZ Inspection of Lower Intestinal Tract, Via Natural or Artificial Opening Endoscopic (ICD-10-PCS; CPT 45378; principal; 2024-06-17 11:30)
DX: Z12.11 Encounter for screening for malignant neoplasm of colon (principal); D12.2 Benign neoplasm of ascending colon; K63.5 Polyp of colon; I10 Essential (primary) hypertension; I48.0 Paroxysmal atrial fibrillation; I47.19 Other supraventricular tachycardia; K58.9 Irritable bowel syndrome, unspecified; M85.88 Other specified disorders of bone density and structure, other site; E53.8 Deficiency of other specified B group vitamins; M35.00 Sjogren syndrome, unspecified; Z98.890 Other specified postprocedural states; Z90.49 Acquired absence of other specified parts of digestive tract; Z86.79 Personal history of other diseases of the circulatory system; Z87.731 Personal history of (corrected) tracheoesophageal fistula or atresia; Z98.891 History of uterine scar from previous surgery; Z80.8 Family history of malignant neoplasm of other organs or systems
CPT/HCPCS: 45385; 45380; 88305; J2003; J2704; J7120

== ENCOUNTER 2024-08-21 18:35 | Emergency (ER) | payer OTHER, SELFPAY ==
[2024-08-21 19:21] VITALS: BP 122/78; PULSE 69; RESP 20; TEMP 36.4; O2SAT 100
== END 2024-08-22 00:39 | disposition left against medical advice (07) ==
LOC: ANHED 23:18
PROVIDERS: PCP Family Medicine
DX: R10.9 Unspecified abdominal pain (principal)
CPT/HCPCS: 99199

== ENCOUNTER 2024-08-22 04:31 | Observation (INO) | payer OTHER, SELFPAY ==
[2024-08-22] VITALS (14 sets, daily range): BP systolic 105–157; BP diastolic 60–89; PULSE 67–90; RESP 12–19; TEMP 36.4; O2SAT 97–100; BMI 24.3
--- NOTE | ~2024-08-22 | CT_ITS ---
EXAMINATION: CT abdomen pelvis w con DATE: 08/22/2024 05:47 INDICATION: Abdominal pain TECHNIQUE: Computed tomography (CT) of the abdomen and pelvis was performed with 100 mL Omnipaque-350 intravenous contrast. Automated exposure control and iterative reconstruction technique were employe d. The dose-length product was 382.05 mGy-cm. COMPARISON: None FINDINGS: Minimal bibasilar atelectasis. Heart size is normal. No pericardial or pleural effusion. Cholecystect dania clips at the gallbladder fossa. Liver, spleen, pancreas,, bilateral adrenal glands and kidneys ar e normal. Bowels including the appendix are normal. Bladder is normal. Again seen is increased promin ence of the left-sided parametrial vessels and left gonadal vein which can be seen with pelvic vascul ar congestion syndrome. Uterus and bilateral adnexa are otherwise unremarkable. No free intraperitone al gas or fluid. No pathologically enlarged abdominal or pelvic lymphadenopathy. Mild lumbar levocurv ature with moderate to severe spondylosis. IMPRESSION: 1. No acute intra-abdominal/pelvic process. Reviewed, dictated and finalized at location A.
--- NOTE | 2024-08-22 04:45 | ECG_ITS ---
Test Date: 2024-08-22 04:51:32 Measurements Intervals [place] Rate: 75 P: -19 IA: 165 QRS: 53 QRSD: 88 T: 68 QT: 360 QTc: 403 Interpretive Statements SINUS RHYTHM BASELINE ARTIFACT- I, II, III, AVR, AVL, AVF NORMAL ECG No previous ECG available for comparison Electronically Signed On 08-22-2024 07:22:52 CDT by Jerry Wan D.O.
--- NOTE | 2024-08-22 04:53 | ED_ITS ---
HPI - General Adult General Chief complaint: Abdominal Pain <Betito Dupree MD - Last Filed: 08/22/24 04:56> Stated complaint: abd pain, n/v <Betito Dupree MD - Last Filed: 08/22/24 04:56> Time Seen by Provider: 08/22/24 04:39 <Betito Dupree MD - Last Filed: 08/22/24 04:56> History of Present Illness HPI narrative: Patient is a 64-year-old female presents emergency department with chief complaint of abdominal pain. Patient reports that she started having epigastric discomfort and has had nausea the patient states that she has had discomfort since last for reports he got worse the patient states she has taken omeprazole and Pepcid nose fall without relief patient states that she has had nausea has had a little bit of diarrhea the patient reports that she has prior history of AFib but no prior history of an [place] the patient does report that she has had a cholecystectomy and also has history of IBS <Betito Dupree MD - Last Filed: 08/22/24 04:56> Related Data Home medications: Home Medications ?Medication ?Instructions ?Recorded ?Confirmed ?Last Taken ?Type cyclosporine 0.05 % eye drops in a 1 drp EACH EYE BID 07/17/21 08/22/24 08/21/24 History dropperette (Restasis) hydroxychloroquine 200 mg tablet 300 mg PO DAILY 07/17/21 08/22/24 08/21/24 History metoprolol succinate 25 mg 25 mg PO DAILY 07/17/21 08/22/24 08/21/24 History tablet,extended release 24 hr lisinopril 10 mg tablet 20 mg PO DAILY 08/22/24 08/22/24 08/21/24 History <Betito Dupree MD - Last Filed: 08/22/24 04:56> Allergies/adverse reactions: Allergies Allergy/AdvReac Type Severity Reaction Status Date / Time warfarin Allergy Other Verified 08/22/24 06:34 nitrofurantoin (From AdvReac Intermediate Nausea and Verified 08/22/24 06:34 Macrobid) Vomiting <Betito Dupree MD - Last Filed: 08/22/24 04:56> Review of Systems 2 Review of Systems: A 10 system review of systems was completed on the patient and is negative except for what is stated in the HPI. Nursing and ancillary documentation was reviewed. 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 Atrial tachycardia Irritable bowel syndrome Hypertension Paroxysmal atrial fibrillation Osteopenia Vitamin B12 deficiency Sjogren's disease <Betito Dupree MD - Last Filed: 08/22/24 04:56> Surgical History Surgical History: Surgical History History of laser assisted in situ keratomileusis History of arthroscopy of right knee x3 History of endometrial ablation History of cholecystectomy History of cardiac radiofrequency ablation (RFA) <Betito Dupree MD - Last Filed: 08/22/24 04:56> Family History Family History: Family History Father Melanoma Sibling Hypertension <Betito Dupree MD - Last Filed: 08/22/24 04:56> Social History Social History: Social History Social History: Surrogate medical decision maker: Ramiro Retana, spouse. Code status: Full code. Smoking status: Never smoker Second hand tobacco smoke exposure: No Alcohol intake: never Substance use: never Substance use type: does not use Do You Feel Safe in your Home?: Yes Lack of Transportation: No Lack of Food: Never True Current Housing: I Have Housing Concerned About Future Housing: No Difficulty Paying Gas/Electric Bills: No Difficulty Paying for Meds: No Currently Unemployed: No Education: Decline to Answer Difficulty w/ Childcare or Family Care: No Living arrangements: with family Occupation/Education: unemployed Gender identity (if verbalized by the patient): Female Sexual Orientation (if Verbalized by the Patient): Straight or Heterosexual Spiritual care concerns: No <Betito Dupree MD - Last Filed: 08/22/24 04:56> Exam 2 Narrative: GENERAL: Well-appearing, well-nourished, and in no acute distress. HEAD: Normocephalic, atraumatic. EYES: PERRLA and EOMI. ENT: Nares clear, no rhinorrhea or epistaxis. Mucous membranes moist. NECK: Supple. CHEST: Clear to auscultation. No respiratory distress. HEART: Regular rate and rhythm. No murmur heard. Normal peripheral pulses. ABDOMEN: Soft, tenderness to palpation in the epigastric region, nondistended, normal active bowel sounds. EXTREMITIES: Normal range of motion. No edema. SKIN: Warm, dry, no rash. NEURO: No focal deficits. Alert and oriented x3. PSYCH: Normal mood and affect. <Betito Dupree MD - Last Filed: 08/22/24 04:56> Course Course Emergency Course: Patient signed out to me pending CT scan. There is a delay in obtaining the interpretation of this but it is normal as below. Dr Dupree had discussed with patient need for admission for hyponatremia (119 today, from 131 previously though this was a few years ago, chronically in the 130s). Patient is reassessed at bedside. She describes a burning sensation in her abdomen and notes that the Protonix helped a little bit. In general she has had decreased p.o. intake as well as diminished stool output over the past week. She is always has attempt to use Bentyl given her history of Sjogren's but she did admit to taking a dose earlier this week which she found helped. She also has ondansetron at home and noted that she had been taking this. She has previously had a GI cocktail but does not believe that this is necessary at this time. A 1 time dose of small dose Haldol is ordered. She notes that she had labs obtained more recently than the ones any our EMR and her sodium was 133 at that time. Patient discussed with on-call hospitalist Dr. Medeiros who recommends IMU admission and q4Hr BMP. <Anabela Pickett MD - Last Filed: 08/22/24 08:35> Vital Signs Vital signs: Vital Signs Temperature 97.6 F 08/22/24 04:34 Pulse Rate 90 08/22/24 04:34 Respiratory Rate 14 08/22/24 04:34 Blood Pressure 157/89 H 08/22/24 04:34 Pulse Oximetry 100 08/22/24 04:34 Oxygen Delivery Room Air 08/22/24 04:34 Temperature 97.6 F 08/22/24 04:34 Pulse Rate 68 08/22/24 08:13 Respiratory Rate 12 08/22/24 08:13 Blood Pressure 125/76 08/22/24 08:13 Pulse Oximetry 100 08/22/24 08:13 Oxygen Delivery Room Air 08/22/24 04:34 <Betito Dupree MD - Last Filed: 08/22/24 04:56> Vital Signs Temperature 97.6 F 08/22/24 04:34 Pulse Rate 90 08/22/24 04:34 Respiratory Rate 14 08/22/24 04:34 Blood Pressure 157/89 H 08/22/24 04:34 Pulse Oximetry 100 08/22/24 04:34 Oxygen Delivery Room Air 08/22/24 04:34 Temperature 97.6 F 08/22/24 04:34 Pulse Rate 68 08/22/24 08:13 Respiratory Rate 12 08/22/24 08:13 Blood Pressure 125/76 08/22/24 08:13 Pulse Oximetry 100 08/22/24 08:13 Oxygen Delivery Room Air 08/22/24 04:34 <Anabela Pickett MD - Last Filed: 08/22/24 08:35> Medical Decision Making Vital Signs Vital Signs: Vital Signs Temperature 97.6 F 08/22/24 04:34 Pulse Rate 90 08/22/24 04:34 Respiratory Rate 14 08/22/24 04:34 Blood Pressure 157/89 H 08/22/24 04:34 Pulse Oximetry 100 08/22/24 04:34 Oxygen Delivery Room Air 08/22/24 04:34 Temperature 97.6 F 08/22/24 04:34 Pulse Rate 68 08/22/24 08:13 Respiratory Rate 12 08/22/24 08:13 Blood Pressure 125/76 08/22/24 08:13 Pulse Oximetry 100 08/22/24 08:13 Oxygen Delivery Room Air 08/22/24 04:34 <Betito Dupree MD - Last Filed: 08/22/24 04:56> Vital Signs Temperature 97.6 F 08/22/24 04:34 Pulse Rate 90 08/22/24 04:34 Respiratory Rate 14 08/22/24 04:34 Blood Pressure 157/89 H 08/22/24 04:34 Pulse Oximetry 100 08/22/24 04:34 Oxygen Delivery Room Air 08/22/24 04:34 Temperature 97.6 F 08/22/24 04:34 Pulse Rate 68 08/22/24 08:13 Respiratory Rate 12 08/22/24 08:13 Blood Pressure 125/76 08/22/24 08:13 Pulse Oximetry 100 08/22/24 08:13 Oxygen Delivery Room Air 08/22/24 04:34 <Anabela Pickett MD - Last Filed: 08/22/24 08:35> Lab Data Result diagrams: 08/22/24 05:01 08/22/24 05:01 <Betito Dupree MD - Last Filed: 08/22/24 04:56> Labs: Lab Results 08/22/24 Range/Units 05:01 WBC 6.9 (4.5-10.0) K/mm3 RBC 3.72 L (4.2-5.4) M/mm3 Hgb 11.9 L (12.0-15.0) g/dL Hct 33.6 L (37.0-47.0) % MCV 90.3 (80-100) fl MCH 32.0 (26-34) pg MCHC 35.4 (32-36) g/dl RDW 11.7 (11.5-14.5) % Plt Count 256 (150-375) k/mm3 MPV 8.7 (7.4-10.4) fl Immature Gran % (Auto) 0.3 (0-0.5) % Neut % (Auto) 61.9 (45.5-73.1) % Lymph % (Auto) 27.7 (18.3-44.2) % [place] % (Auto) 8.4 (2.6-8.5) % Eos % (Auto) 1.3 (0-4.4) % Baso % (Auto) 0.4 (0.2-1.2) % Lymph # (Auto) 1.92 (0.9-3.2) K/mm3 [place] # (Auto) 0.6 (0.1-0.6) K/mm3 Eos # (Auto) 0.1 (0-0.3) K/mm3 Baso # (Auto) 0.0 (0.0-0.1) K/mm3 Abs Immat Gran (auto) 0.02 (0.00-0.031) K/mm3 Absolute Neuts (auto) 4.3 (1.3-6.7) K/mm3 Absolute Nucleated RBC 0.000 (0.0-0.012) K/mm3 Nucleated RBC % 0.0 (0.0-0.2) % PT 14.1 (11.1-14.7) Seconds INR 1.1 APTT 30.5 (22.3-36.8) Seconds Sodium 119 L* (137-145) mmol/L Potassium 4.1 (3.4-5.0) mmol/L Chloride 89 L (98-107) mmol/L Carbon Dioxide 19 L (22-30) mmol/L Anion Gap 11 (4-12) mmol/L BUN 16 (7-17) mg/dL Creatinine 1.10 H (0.7-1.0) mg/dL Estim Creat Clear Calc 43 ml/min Estimated GFR 50 L (59 - ) Glucose 97 (65-110) mg/dL Lactic Acid 1.1 (0.7-2.0) mmol/L Calcium 10.0 (8.4-10.2) mg/dL Magnesium 2.2 (1.6-2.3) mg/dL Total Bilirubin 1.2 (0.2-1.3) mg/dL AST 35 (14-36) U/L ALT 29 (6-35) U/L Alkaline Phosphatase 86 (38-126) U/L Troponin I < 0.012 (0.000-0.034) ng/mL Total Protein 7.6 (6.3-8.2) g/dL Albumin 4.8 (3.5-5.1) g/dL Lipase 190 (23-300) U/L Urine Color Yellow (Yellow) Urine Appearance Clear (Clear) Urine pH 6.5 (5.0-9.0) Ur Specific [place] 1.008 (1.001-1.035) Urine Protein Negative (Negative) mg/dL Urine Glucose (UA) Negative (Negative) mg/dL Urine Ketones Negative (Negative) mg/dL Ur Blood (Man) Negative (Negative) Urine Nitrate Negative (Negative) Urine Bilirubin Negative (Negative) Urine Urobilinogen 0.2 (<2.0) mg/dL Leukocyte Esterase Rfl Negative (Negative) LUCIO/UL <Betito Dupree MD - Last Filed: 08/22/24 04:56> Lab Results 08/22/24 Range/Units 05:01 WBC 6.9 (4.5-10.0) K/mm3 RBC 3.72 L (4.2-5.4) M/mm3 Hgb 11.9 L (12.0-15.0) g/dL Hct 33.6 L (37.0-47.0) % MCV 90.3 (80-100) fl MCH 32.0 (26-34) pg MCHC 35.4 (32-36) g/dl RDW 11.7 (11.5-14.5) % Plt Count 256 (150-375) k/mm3 MPV 8.7 (7.4-10.4) fl Immature Gran % (Auto) 0.3 (0-0.5) % Neut % (Auto) 61.9 (45.5-73.1) % Lymph % (Auto) 27.7 (18.3-44.2) % [place] % (Auto) 8.4 (2.6-8.5) % Eos % (Auto) 1.3 (0-4.4) % Baso % (Auto) 0.4 (0.2-1.2) % Lymph # (Auto) 1.92 (0.9-3.2) K/mm3 [place] # (Auto) 0.6 (0.1-0.6) K/mm3 Eos # (Auto) 0.1 (0-0.3) K/mm3 Baso # (Auto) 0.0 (0.0-0.1) K/mm3 Abs Immat Gran (auto) 0.02 (0.00-0.031) K/mm3 Absolute Neuts (auto) 4.3 (1.3-6.7) K/mm3 Absolute Nucleated RBC 0.000 (0.0-0.012) K/mm3 Nucleated RBC % 0.0 (0.0-0.2) % PT 14.1 (11.1-14.7) Seconds INR 1.1 APTT 30.5 (22.3-36.8) Seconds Sodium 119 L* (137-145) mmol/L Potassium 4.1 (3.4-5.0) mmol/L Chloride 89 L (98-107) mmol/L Carbon Dioxide 19 L (22-30) mmol/L Anion Gap 11 (4-12) mmol/L BUN 16 (7-17) mg/dL Creatinine 1.10 H (0.7-1.0) mg/dL Estim Creat Clear Calc 43 ml/min Estimated GFR 50 L (59 - ) Glucose 97 (65-110) mg/dL Lactic Acid 1.1 (0.7-2.0) mmol/L Calcium 10.0 (8.4-10.2) mg/dL Magnesium 2.2 (1.6-2.3) mg/dL Total Bilirubin 1.2 (0.2-1.3) mg/dL AST 35 (14-36) U/L ALT 29 (6-35) U/L Alkaline Phosphatase 86 (38-126) U/L Troponin I < 0.012 (0.000-0.034) ng/mL Total Protein 7.6 (6.3-8.2) g/dL Albumin 4.8 (3.5-5.1) g/dL Lipase 190 (23-300) U/L Urine Color Yellow (Yellow) Urine Appearance Clear (Clear) Urine pH 6.5 (5.0-9.0) Ur Specific [place] 1.008 (1.001-1.035) Urine Protein Negative (Negative) mg/dL Urine Glucose (UA) Negative (Negative) mg/dL Urine Ketones Negative (Negative) mg/dL Ur Blood (Man) Negative (Negative) Urine Nitrate Negative (Negative) Urine Bilirubin Negative (Negative) Urine Urobilinogen 0.2 (<2.0) mg/dL Leukocyte Esterase Rfl Negative (Negative) LUCIO/UL <Anabela Pickett MD - Last Filed: 08/22/24 08:35> Imaging Data Radiologist's impression: Impressions Abdomen/Pelvis CT 08/22/24 07:02 IMPRESSION: 1. No acute intra-abdominal/pelvic process. <Anabela Pickett MD - Last Filed: 08/22/24 08:35> Discharge Plan Discharge Clinical Impression: Abdominal pain, epigastric, Hyponatremia <Betito Dupree MD - Last Filed: 08/22/24 04:56> Patient Disposition: Still a Patient <Betito Dupree MD - Last Filed: 08/22/24 04:56> Condition: Stable <Betito Dupree MD - Last Filed: 08/22/24 04:56> Instructions: Antibiotic Form <Betito Dupree MD - Last Filed: 08/22/24 04:56> Patient Language: Filipino <Betito Dupree MD - Last Filed: 08/22/24 04:56> Prescriptions: No Action metoprolol succinate 25 mg tablet extended release 24 hr 25 mg PO DAILY hydroxychloroquine 200 mg tablet 300 mg PO DAILY cyclosporine [Restasis] 0.05 % dropperette 1 drp EACH EYE BID cyclobenzaprine 5 mg tablet 5 mg PO TID PRN (Reason: muscle spasm) Qty: 60 1RF Patient Comments: not taking lisinopril 10 mg tablet 20 mg PO DAILY <Betito Dupree MD - Last Filed: 08/22/24 04:56> Follow-up/Referrals: Andreas Souza MD [Primary Care Provider] - <Betito Dupree MD - Last Filed: 08/22/24 04:56>
[2024-08-22 05:06] LABS: Basophils Percent Auto 0.4 % (0.2-1.2); Eosinophils Absolute Auto 0.1 K/mm3 (0-0.3); Eosinophils Percent Auto 1.3 % (0-4.4); Hematocrit 33.6 % (37.0-47.0); Hemoglobin 11.9 g/dL (12.0-15.0); Immature Granulocyte Absolute 0.02 K/mm3 (0.00-0.031); Immature Granulocyte Percent A 0.3 % (0-0.5); Lymphocytes Absolute Auto 1.92 K/mm3 (0.9-3.2); Lymphocytes Percent Auto 27.7 % (18.3-44.2); Mean Corpuscular HGB Conc 35.4 g/dl (32-36); Mean Corpuscular Volume 90.3 fl (80-100); Mean Platelet Volume 8.7 fl (7.4-10.4); Monocytes Absolute Auto 0.6 K/mm3 (0.1-0.6); Monocytes Percent Auto 8.4 % (2.6-8.5); Neutrophils Absolute Auto 4.3 K/mm3 (1.3-6.7); Neutrophils Percent Auto 61.9 % (45.5-73.1); Platelet Count Result 256 k/mm3 (150-375); Red Blood Count 3.72 M/mm3 (4.2-5.4); Red Cell Distribution Width 11.7 % (11.5-14.5); White Blood Count 6.9 K/mm3 (4.5-10.0)
[2024-08-22 05:08] LABS: Add Urine Microscopic? NO; Appearance Urine Clear (Clear); Bilirubin Urine Negative (Negative); Blood Urine Negative (Negative); Color Urine Yellow (Yellow); Glucose Urine UA Negative (Negative); Ketones Urine Negative (Negative); Leukocyte Esterase Ur Negative LEU/UL (Negative); Nitrate Urine Negative (Negative); Protein Urine Negative (Negative); Specific Grav Ur 1.008 (1.001-1.035); Urobilinogen Urine 0.2 mg/dL (<2.0); pH Urine 6.5 (5.0-9.0)
[2024-08-22] MEDS: ONDANSETRON INJ 4 MG/2 ML VIAL IV PUSH (05:12)
[2024-08-22] MEDS: MORPHINE SULFATE (*CRX) 4 MG/ML INJ IV PUSH (05:12)
[2024-08-22] MEDS: DICYCLOMINE HCL INJ 20 MG/2 ML VIAL IM (05:12)
[2024-08-22] MEDS: SODIUM CHLORIDE 0.9% IV 1,000 ML 999 ML IV CONT (05:13)
[2024-08-22 05:16] LABS: Lactic Acid Reflex 1.1 mmol/L (0.7-2.0); Magnesium 2.2 mg/dL (1.6-2.3)
[2024-08-22 05:22] LABS: Alanine Aminotransferase 29 U/L (6-35); Albumin Level 4.8 g/dL (3.5-5.1); Alkaline Phosphatase 86 U/L (38-126); Anion Gap 11 mmol/L (4-12); Aspartate Amino Transferase 35 U/L (14-36); Bilirubin,Total 1.2 mg/dL (0.2-1.3); Blood Urea Nitrogen 16 mg/dL (7-17); Carbon Dioxide 19 mmol/L (22-30); Chloride 89 mmol/L (98-107); Estimated CRCL calculation 43 ml/min; Estimated Glomerular Filt Rate 50; Glucose 97 mg/dL (65-110); Lipase 190 U/L (23-300); Potassium 4.1 mmol/L (3.4-5.0); Sodium 119 mmol/L (137-145); Total Protein 7.6 g/dL (6.3-8.2)
[2024-08-22 05:29] LABS: Troponin I < 0.012 ng/mL (0.000-0.034)
[2024-08-22 05:31] LABS: INR 1.1; Prothrombin Time 14.1 Seconds (11.1-14.7)
[2024-08-22 05:32] LABS: Partial Thromboplastin Time 30.5 Seconds (22.3-36.8)
[2024-08-22] MEDS: PANTOPRAZOLE SODIUM IV 40 MG VIAL IV PUSH (07:09)
[2024-08-22] MEDS: HALOPERIDOL LACTATE 5 MG/ML VIAL 2.5 MG IV PUSH (08:53)
[2024-08-22 09:22] LABS: Anion Gap 9 mmol/L (4-12); Blood Urea Nitrogen 13 mg/dL (7-17); Calcium 9.7 mg/dL (8.4-10.2); Carbon Dioxide 20 mmol/L (22-30); Chloride 96 mmol/L (98-107); Estimated CRCL calculation 45 ml/min; Estimated Glomerular Filt Rate 53; Glucose 95 mg/dL (65-110); Potassium 4.4 mmol/L (3.4-5.0); Sodium 125 mmol/L (137-145)
--- NOTE | 2024-08-22 10:23 | ADMGEN ---
This patient, Krystle Retana, was admitted to IMU Room 210-01. Patient/family oriented to hospital policies and general routines including ID bracelet, bed and alarms, visiting hours, pain management, procedures, bathroom and other care routines, personal items, smoking policy, room service/diet, and visiting hours. Information on how to activate the Rapid Response Team has been discussed. Patient/Family are encouraged to report perceived risks to care and to ask questions if they do not understand what they are told or what they should do.
--- NOTE | 2024-08-22 11:10 | P.HP_ITS ---
H&P: HPI History of Present Illness Date/Time: 08/22/24 11:10 Chief Complaint: abd pain Narrative: Patient notes about 1 week ago she started to have some lower abdominal pain. Pain is getting better. Two days ago she started to have epigastric pain described that as shooting pain getting better with Pepto-Bismol, omeprazole and Pepcid She has been taking Tylenol for chronic back pain. She took 1 dose of ib uprofen 1 week ago. Denies drugs or alcohol abuse. Last bowel movement was couple days ago but she is passing gas. She mentioned that she has history of IBS and pain is similar to that time. She presented to ER for further management. In the ER patient was found to have sodium 119. CT abdomen was negative for acute abnormality. Patient was admitted for hyponatremia management. At time of my exam patient is feeling better. Abdominal pain is better. Denies any chest pain, shortness off breath, nausea vomiting. Review of Systems Review of Systems: A 10 system review of systems was completed on the patient and is negative except for what is stated in the HPI. Nursing and ancillary documentation was reviewed. 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 Code status: Full code. Smoking status: Never smoker Second hand tobacco smoke exposure: No Alcohol intake: never Substance use: never Substance use type: does not use Do You Feel Safe in your Home?: Yes Lack of Transportation: No Lack of Food: Never True Current Housing: I Have Housing Concerned About Future Housing: No Difficulty Paying Gas/Electric Bills: No Difficulty Paying for Meds: No Currently Unemployed: No Education: Associate Degree Difficulty w/ Childcare or Family Care: No Living arrangements: with family Occupation/Education: unemployed Gender identity (if verbalized by the patient): Female Sexual Orientation (if Verbalized by the Patient): Straight or Heterosexual Spiritual care concerns: No Meds Home Medications and Allergies Home Medications ?Medication ?Instructions ?Recorded ?Confirmed ?Type cyclosporine 0.05 % eye drops in a 1 drp EACH EYE BID 07/17/21 08/22/24 History dropperette (Restasis) hydroxychloroquine 200 mg tablet 300 mg PO DAILY 07/17/21 08/22/24 History metoprolol succinate 25 mg 25 mg PO DAILY 07/17/21 08/22/24 History tablet,extended release 24 hr cyclobenzaprine 5 mg tablet 5 mg PO TID PRN muscle spasm #60 06/03/23 08/22/24 Rx tabs lisinopril 10 mg tablet 20 mg PO DAILY 08/22/24 08/22/24 History Allergies Allergy/AdvReac Type Severity Reaction Status Date / Time warfarin Allergy Other Verified 08/22/24 06:34 nitrofurantoin (From AdvReac Intermediate Nausea and Verified 08/22/24 06:34 Macrobid) Vomiting Vital Signs Vital Signs - 24 hr 08/22/24 04:34 08/22/24 05:46 08/22/24 07:03 Temperature 97.6 F Pulse Rate 90 76 78 Respiratory Rate 14 15 12 Blood Pressure 157/89 H 133/73 119/81 Pulse Oximetry 100 100 100 Oxygen Delivery Room Air 08/22/24 08:13 08/22/24 08:57 08/22/24 09:39 Temperature 97.5 F L Pulse Rate 68 71 80 Respiratory Rate 12 12 19 Blood Pressure 125/76 124/67 105/64 Pulse Oximetry 100 99 100 Oxygen Delivery Exam Narrative: GENERAL: Well-appearing, well-nourished, and in no acute distress. HEAD: Normocephalic, atraumatic. EYES: PERRLA and EOMI. ENT: Nares clear, no rhinorrhea or epistaxis. Mucous membranes moist. NECK: Supple. CHEST: Clear to auscultation. No respiratory distress. HEART: Regular rate and rhythm. No murmur heard. Normal peripheral pulses. ABDOMEN: Soft, tenderness to palpation in the epigastric region, nondistended, normal active bowel sounds. EXTREMITIES: Normal range of motion. No edema. SKIN: Warm, dry, no rash. NEURO: No focal deficits. Alert and oriented x3. PSYCH: Normal mood and affect. H&P: Results Labs Labs: Short CBC 08/22/24 Range/Units 05:01 WBC 6.9 (4.5-10.0) K/mm3 Hgb 11.9 L (12.0-15.0) g/dL Hct 33.6 L (37.0-47.0) % Plt Count 256 (150-375) k/mm3 BMP 08/22/24 08/22/24 05:01 09:06 Sodium 119 L* 125 L Potassium 4.1 4.4 Chloride 89 L 96 L Carbon Dioxide 19 L 20 L BUN 16 13 Creatinine 1.10 H 1.04 H Glucose 97 95 Calcium 10.0 9.7 Cardiac Enzymes 08/22/24 Range/Units 05:01 Troponin I < 0.012 (0.000-0.034) ng/mL Liver Function 08/22/24 Range/Units 05:01 Total Bilirubin 1.2 (0.2-1.3) mg/dL AST 35 (14-36) U/L ALT 29 (6-35) U/L Alkaline Phosphatase 86 (38-126) U/L Albumin 4.8 (3.5-5.1) g/dL Urine 08/22/24 Range/Units 05:01 Urine Color Yellow (Yellow) Urine Appearance Clear (Clear) Urine pH 6.5 (5.0-9.0) Ur Specific [place] 1.008 (1.001-1.035) Urine Protein Negative (Negative) mg/dL Urine Glucose (UA) Negative (Negative) mg/dL Assessment and Plan Assessment and plan (1) Hyponatremia: Code(s): E87.1 - Hypo-osmolality and hyponatremia Status: Acute (2) Abdominal pain, epigastric: Code(s): R10.13 - Epigastric pain Status: Acute (3) Dehydration: Code(s): E86.0 - Dehydration Status: Acute (4) Diarrhea: Code(s): R19.7 - Diarrhea, unspecified Status: Acute (5) Hypertension: Code(s): I10 - Essential (primary) hypertension Status: Acute (6) Paroxysmal atrial fibrillation: Code(s): I48.0 - Paroxysmal atrial fibrillation Status: Acute Plan Hypernatremia Improving Continue fluid restriction We monitor BMP level Abdominal pain Possible IBS CT abdomen pelvis unremarkable Continue Pepcid and Pepto-Bismol Continue to monitor History of PAF Continue with metoprolol HTN Blood pressure was applied. Hold off given blood pressure medication Continue monitor
[2024-08-22] MEDS: METOPROLOL SUCCINATE EXT REL 25 MG TABCR PO (12:40)
[2024-08-22] MEDS: cycloSPORINE 0.4 ML OPHTH SOLUTION 1 DROP EACH EYE ×2 (12:41→20:38)
[2024-08-22 13:13] LABS: Anion Gap 8 mmol/L (4-12); Blood Urea Nitrogen 11 mg/dL (7-17); Calcium 9.9 mg/dL (8.4-10.2); Carbon Dioxide 21 mmol/L (22-30); Chloride 99 mmol/L (98-107); Estimated CRCL calculation 46 ml/min; Estimated Glomerular Filt Rate 55; Glucose 125 mg/dL (65-110); Potassium 4.5 mmol/L (3.4-5.0); Sodium 128 mmol/L (137-145)
[2024-08-22 19:00] LABS: Anion Gap 9 mmol/L (4-12); Blood Urea Nitrogen 11 mg/dL (7-17); Calcium 9.4 mg/dL (8.4-10.2); Carbon Dioxide 19 mmol/L (22-30); Chloride 99 mmol/L (98-107); Estimated CRCL calculation 47 ml/min; Estimated Glomerular Filt Rate 56; Glucose 102 mg/dL (65-110); Potassium 4.6 mmol/L (3.4-5.0); Sodium 127 mmol/L (137-145)
[2024-08-22] MEDS: FAMOTIDINE 20 MG/2 ML VIAL IV PUSH (20:38)
--- NOTE | 2024-08-22 22:54 | PC.NURSE ---
This patient, Krystle Retana, was transferred to [facility] on 08/22/24 at 2245. Personal belongings sent with patient. Report given to Svetlana. Appropriate documentation sent with patient.
--- NOTE | 2024-08-22 23:13 | PC.NURSE ---
RECEIVED PT FROM IMU PER BED. VOICES NO C/O
[2024-08-23] VITALS: BP 117/65; PULSE 67; PULSE 73; RESP 16; TEMP 36.9; O2SAT 99
[2024-08-23 04:00] VITALS: PULSE 57
[2024-08-23 05:16] VITALS: BP 128/65; PULSE 71; RESP 16; TEMP 36.1; O2SAT 100
[2024-08-23 05:33] LABS: Hematocrit 35.6 % (37.0-47.0); Mean Corpuscular HGB Conc 33.7 g/dl (32-36); Mean Corpuscular Hemoglobin 32.1 pg (26-34); Mean Corpuscular Volume 95.2 fl (80-100); Platelet Count Result 239 k/mm3 (150-375); Red Blood Count 3.74 M/mm3 (4.2-5.4); White Blood Count 4.9 K/mm3 (4.5-10.0)
[2024-08-23 05:53] LABS: Anion Gap 9 mmol/L (4-12); Blood Urea Nitrogen 11 mg/dL (7-17); Calcium 9.6 mg/dL (8.4-10.2); Carbon Dioxide 21 mmol/L (22-30); Chloride 98 mmol/L (98-107); Estimated CRCL calculation 48 ml/min; Estimated Glomerular Filt Rate 58; Glucose 96 mg/dL (65-110); Potassium 4.5 mmol/L (3.4-5.0); Sodium 128 mmol/L (137-145)
[2024-08-23 08:00] VITALS: PULSE 61
[2024-08-23 08:49] VITALS: PULSE 73
[2024-08-23] MEDS: METOPROLOL SUCCINATE EXT REL 25 MG TABCR PO (08:49)
[2024-08-23] MEDS: FAMOTIDINE 20 MG/2 ML VIAL IV PUSH (08:49)
[2024-08-23] MEDS: cycloSPORINE 0.4 ML OPHTH SOLUTION 1 DROP EACH EYE (08:49)
[2024-08-23] MEDS: HYDROXYCHLOROQUINE SULFATE 100 MG TABLET 300 MG PO (08:49)
[2024-08-23 11:03] LABS: Sodium 129 mmol/L (137-145)
--- NOTE | 2024-08-23 11:10 | PM.DS ---
DS: Admitting Diagnosis Discharge Date 08/23/24 Admitting Diagnosis abd pain, Hyponatremia DS: Discharge Diagnosis Discharge Diagnosis (1) Hyponatremia: Code(s): E87.1 - Hypo-osmolality and hyponatremia Status: Acute (2) Abdominal pain, epigastric: Code(s): R10.13 - Epigastric pain Status: Acute (3) Dehydration: Code(s): E86.0 - Dehydration Status: Acute (4) Diarrhea: Code(s): R19.7 - Diarrhea, unspecified Status: Acute (5) Hypertension: Code(s): I10 - Essential (primary) hypertension Status: Acute Plan Hyponatremia Improving Continue fluid restriction We monitor BMP level Abdominal pain Possible IBS improved CT abdomen pelvis unremarkable Continue Pepcid and Pepto-Bismol Continue to monitor History of PAF Continue with metoprolol 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 Pain is getting better. Two days ago she started to have epigastric pain described that as shooting pain getting better with Pepto-Bismol, omeprazole and Pepcid She has been taking Tylenol for chronic back pain. She took 1 dose of ibuprofen 1 week ago. Denies drugs or alcohol abuse. Last bowel movement was couple days ago but she is passing gas. She mentioned that she has history of IBS and pain is similar to that time. She presented to ER for further management. In the ER patient was found to have sodium 119. CT abdomen was negative for acute abnormality. Patient was admitted for hyponatremia management. At time of my exam patient is feeling better. Abdominal pain is better. Denies any chest pain, shortness off breath, nausea vomiting. 08/23/24 Patient was seen examined at bedside. She is feeling better. Abdominal pain improved. Sodium improved to 129. Patient has been on fluid restriction. Status at Discharge Overall status at discharge: patient is back to baseline Time Spent with Patient Time attestation: Total time spent providing and/or coordinating discharge services: Time spent: Greater than 30 minutes Exam Narrative: GENERAL: Well-appearing, well-nourished, and in no acute distress. HEAD: Normocephalic, atraumatic. EYES: PERRLA and EOMI. ENT: Nares clear, no rhinorrhea or epistaxis. Mucous membranes moist. NECK: Supple. CHEST: Clear to auscultation. No respiratory distress. HEART: Regular rate and rhythm. No murmur heard. Normal peripheral pulses. ABDOMEN: Soft,non tender, nondistended, normal active bowel sounds. EXTREMITIES: Normal range of motion. No edema. SKIN: Warm, dry, no rash. NEURO: No focal deficits. Alert and oriented x3. PSYCH: Normal mood and affect. DS: Data Data Completed and Pending Labs on day of discharge: Labs from last 24 hours 08/23/24 08/23/24 08/22/24 10:53 05:06 18:31 WBC 4.9 RBC 3.74 L Hgb 12.0 Hct 35.6 L MCV 95.2 D MCH 32.1 MCHC 33.7 RDW 12.0 Plt Count 239 MPV 9.0 Sodium 129 L 128 L 127 L Potassium 4.5 4.6 Chloride 98 99 Carbon Dioxide 21 L 19 L Anion Gap 9 9 BUN 11 11 Creatinine 0.97 0.99 Estim Creat Clear Calc 48 47 Estimated GFR 58 L 56 L Glucose 96 102 Calcium 9.6 9.4 08/22/24 12:43 WBC RBC Hgb Hct MCV MCH MCHC RDW Plt Count MPV Sodium 128 L Potassium 4.5 Chloride 99 Carbon Dioxide 21 L Anion Gap 8 BUN 11 Creatinine 1.02 H Estim Creat Clear Calc 46 Estimated GFR 55 L Glucose 125 H Calcium 9.9 Discharge Plan Discharge Attending physician on discharge: Arun Medeiros Discharging Clinician: Arun Medeiros Anticipated Discharge Date/Time: 08/23/24 11:19 Patient Disposition: Home Activity: as tolerated Diet: as tolerated Discharge Instructions: follow with PCP in one week follow repeat blood test in 2-3 days Fluid restriction to 1500 cc/day Patient Instructions: Antibiotic Form, Hyponatremia (DC), Abdominal Pain (DC) Patient Language: Stateless Stand Alone Forms: General Discharge Information Follow-up/Referrals: Andreas Souza MD [Primary Care Provider] - 1 Week Discharge Medications: New famotidine [Pepcid] 20 mg tablet 20 mg PO BID Qty: 30 0RF Continued metoprolol succinate 25 mg tablet extended release 24 hr 25 mg PO DAILY hydroxychloroquine 200 mg tablet 300 mg PO DAILY cyclosporine [Restasis] 0.05 % dropperette 1 drp EACH EYE BID cyclobenzaprine 5 mg tablet 5 mg PO TID PRN (Reason: muscle spasm) Qty: 60 1RF Patient Comments: not taking lisinopril 10 mg tablet 20 mg PO DAILY Date of admission: 08/22/24 08:29 Primary Care Provider: Andreas Souza Admitting Provider: Arun Medeiros Attending physician on admission: Arun Medeiros Condition: Stable
== END 2024-08-23 12:50 | disposition home or self-care (01) ==
LOC: ANHED 08:35 → ANHIMU 09:50 → ANH2MED 22:55
PROVIDERS: Emergency Medicine; Admitting Provider Internal Medicine; Emergency Provider Student in an Organized Health Care Education/Training Program; PCP Family Medicine; Visit Provider Internal Medicine
DX: E87.1 Hypo-osmolality and hyponatremia (principal); E86.0 Dehydration; R10.13 Epigastric pain; R19.7 Diarrhea, unspecified; I10 Essential (primary) hypertension; I48.0 Paroxysmal atrial fibrillation; K58.9 Irritable bowel syndrome, unspecified; M35.00 Sjogren syndrome, unspecified; M85.80 Other specified disorders of bone density and structure, unspecified site; M54.9 Dorsalgia, unspecified; G89.29 Other chronic pain; Z79.899 Other long term (current) drug therapy
CPT/HCPCS: 36415; 74177; 80048; 80053; 81003; 83605; 83690; 83735; 84295; 84484; 85025; 85027; 85610; 85730; 93005; 96361; 96372; 96374; 96375; 99285; A9270; G0378; J0500; J1630; J2270; J2405; J2470; J7030; Q9967